=== PATIENT | male | born 1935 | race African-American/Black ===

== ENCOUNTER 2018-11-09 18:06 | Inpatient (IN) | payer MEDICARE, MEDICAID ==
[~2018-11-09] VITALS: Ht 172.7 cm; Wt 75.8 kg
[~2018-11-09 18:06] MED LIST: AMLODIPINE BESY10 MG ORAL; ASPIR 8181 MG ORAL; ATENOLOL50 MG ORAL; DOCUSATE SODIU100 MG ORAL; HYDROCHLOROTH12.5 M2 ORAL; LEVAQUIN250 M1 ORAL; MELOXICAM7.5 MG PO; PLAVIX75 MG ORAL; SIMVASTATIN10 MG ORAL; TAMSULOSIN HCL0.4 MG ORAL
--- NOTE | 2018-11-09 18:06 | NUR ---
ED Nurse Note: PT BROUGHT IN BY AMBULANCE DUE TO WEAKNESS FOR WEEKS. PT ALSO C/O LEFT FOREARM PAIN X 1 WEEK BUT DENIES INJURY. PT STATES HIS PRIMARY DOCTOR CALLED HIS NEPHEW TO LET THEM KNOW THAT SOMETHING IS WRONG WITH HIS LIVER. AAO X4, FOLLOWS COMMANDS WITH NON LABORED BREATHING. VSS.
[2018-11-09 18:09] VITALS: BP 158/70
--- NOTE | 2018-11-09 18:42 | NUR ---
ED Nurse Note: COLLECTED BLOOD/URINE THEN SENT.
[2018-11-09 18:51] LABS: APPEARANCE,URINE CLOUDY; BILIRUBIN, URINE NEGATIVE (NEGATIVE); COLOR,URINE PALE YELLOW; GLUCOSE, URINE (UA) NEGATIVE (NEGATIVE); KETONES,URINE NEGATIVE (NEGATIVE); LEUKOCYTE ESTERASE ,URINE 3+ (NEGATIVE); NITRITE,URINE POSITIVE (NEGATIVE); PH,URINE 5 (4.5-8.0); PROTEIN,URINE 3+ (NEGATIVE); UROBILINOGEN,URINE NORMAL MG/DL (0.0-1.0)
[2018-11-09 18:56] LABS: BASOPHILS % (AUTO) 0.6 % (0.0-2.0); EOSINOPHILS % (AUTO) 0.9 % (0.0-3.0); HEMATOCRIT 28.4 % (42.0-52.0); HEMOGLOBIN 9.6 G/DL (14.2-18.0); LYMPHOCYTES % (AUTO) 12.4 % (20.0-45.0); MEAN CORPUSCULAR VOLUME 85 FL (80-99); MONOCYTES % (AUTO) 6.2 % (1.0-10.0); PLATELET COUNT 396 K/UL (150-450); RED BLOOD COUNT 3.36 M/UL (4.70-6.10); WHITE BLOOD COUNT 9.3 K/UL (4.8-10.8)
[2018-11-09 19:00] VITALS: BP 153/79
--- NOTE | 2018-11-09 19:06 | NUR ---
HAND-OFF: Report given to ALKA DELANEY.
--- NOTE | 2018-11-09 19:11 | NUR ---
ED Nurse Note: Received report from Yeny DELANEY. Pt awake, AAOx4, c/o pain 10/10 on left arm and hand and asking for pain med. Will notify ER MD and continue to monitor.
[2018-11-09] MEDS ORDERED: cefTRIAXone 1 GM in NS 55 ML IVPB ONE (19:15)
[2018-11-09 19:16] LABS: ANION GAP 12 mmol/L (5-15); BLOOD UREA NITROGEN 38 mg/dL (7-18); CALCIUM 9.3 MG/DL (8.5-10.1); CARBON DIOXIDE 23 MMOL/L (21-32); CHLORIDE 105 MMOL/L (98-107); CREATININE 3.5 MG/DL (0.55-1.30); POTASSIUM 4.7 MMOL/L (3.5-5.1); SODIUM 140 MMOL/L (136-145)
[2018-11-09 19:21] LABS: ALANINE AMINOTRANSFERASE 23 U/L (12-78); ALBUMIN 2.9 G/DL (3.4-5.0); ALBUMIN/GLOBULIN RATIO 0.7 (1.0-2.7); ALKALINE PHOSPHATASE 99 U/L (46-116); ASPARTATE AMINO TRANSFERASE 14 U/L (15-37); BILIRUBIN,TOTAL 0.3 MG/DL (0.2-1.0); CKMB 1.3 NG/ML (0.0-3.6); CREATINE KINASE 53 U/L (26-308)
--- NOTE | 2018-11-09 19:51 | Emergency Room Report ---
History of Present Illness General Chief Complaint: Generalized Weakness Source: Patient, EMS Present Illness HPI Patient is an 83-year-old male brought in by EMS after increased generalized weakness. Patient had reportedly been called by his physician advised to come to the hospital. Patient states he is followed by Dr. Prince Parmar. History is markedly limited by patient's mental status and poor historian. Patient had been having increased back pain. He had been previously seen at this facility. Allergies: Coded Allergies: No Known Allergies (Unverified , 08/05/14) Patient History Past Medical History: see triage record Reviewed Nursing Documentation: PMH: Agreed; PSxH: Agreed Nursing Documentation-PMH Hx Hypertension: Yes Hx Cancer: No Hx Gastrointestinal Problems: No Hx Neurological Problems: Yes - POLIO Review of Systems All Other Systems: limited - by poor historian Physical Exam Vital Signs Date Time Temp Pulse Resp B/P (MAP) Pulse Ox O2 Delivery O2 Flow Rate FiO2 11/09/18 17:45 99.0 72 18 175/81 (112) 97 Room Air General Appearance: alert, Chronically Ill Eyes: bilateral eye PERRL, bilateral eye EOMI ENT: hearing grossly normal Neck: full range of motion Respiratory: lungs clear, normal breath sounds Cardiovascular #1: normal inspection Gastrointestinal: normal inspection, non tender, non-distended Musculoskeletal: normal inspection Neurologic: alert, oriented x3, responsive, ladler III-XII nml as tested Psychiatric: normal inspection Skin: normal inspection, normal color Medical Decision Making Diagnostic Impression: Primary Impression: JESENIA (acute kidney injury) Additional Impressions: Anemia Urinary tract infection Qualified Codes: N10 - Acute pyelonephritis Prostate hypertrophy ER Course Patient presented for increased generalized weakness and confusion. Differential diagnosis included but was not limited to pyelonephritis, hepatic encephalopathy, cva, dehydration, uremia, among others. Patient was noted to be awake and verbal with some confabulation. Patient appears somewhat confused. He doesn't appear to have a focal neurological deficiti. He was started on IV fluids and IV antibiotics for urinary infection. Patients BUN and creatinine were noted to be elevated compared with [facility] He was noted to have some prior history of prostate disease. Patient was discussed with Dr. Edgar Milton who is covering for Dr. Young. Labs Test 11/09/18 18:35 11/09/18 22:50 White Blood Count 9.3 K/UL (4.8-10.8) Red Blood Count 3.36 M/UL (4.70-6.10) Hemoglobin 9.6 G/DL (14.2-18.0) Hematocrit 28.4 % (42.0-52.0) Mean Corpuscular Volume 85 FL (80-99) Mean Corpuscular Hemoglobin 28.6 PG (27.0-31.0) Mean Corpuscular Hemoglobin Concent 33.8 G/DL (32.0-36.0) Red Cell Distribution Width 12.0 % (11.6-14.8) Platelet Count 396 K/UL (150-450) Mean Platelet Volume 5.3 FL (6.5-10.1) Neutrophils (%) (Auto) 80.0 % (45.0-75.0) Lymphocytes (%) (Auto) 12.4 % (20.0-45.0) Monocytes (%) (Auto) 6.2 % (1.0-10.0) Eosinophils (%) (Auto) 0.9 % (0.0-3.0) Basophils (%) (Auto) 0.6 % (0.0-2.0) Urine Color Pale yellow Urine Appearance Cloudy Urine pH 5 (4.5-8.0) Urine Specific [place] 1.015 (1.005-1.035) Urine Protein 3+ (NEGATIVE) Urine Glucose (UA) Negative (NEGATIVE) Urine Ketones Negative (NEGATIVE) Urine Blood 4+ (NEGATIVE) Urine Nitrite Positive (NEGATIVE) Urine Bilirubin Negative (NEGATIVE) Urine Urobilinogen Normal MG/DL (0.0-1.0) Urine Leukocyte Esterase 3+ (NEGATIVE) Urine RBC 2-4 /HPF (0 - 0) Urine WBC Tntc /HPF (0 - 0) Urine Squamous Epithelial Cells None /LPF (NONE/OCC) Urine Bacteria Moderate /HPF (NONE) Sodium Level 140 MMOL/L (136-145) Potassium Level 4.7 MMOL/L (3.5-5.1) Chloride Level 105 MMOL/L (98-107) Carbon Dioxide Level 23 MMOL/L (21-32) Anion Gap 12 mmol/L (5-15) Blood Urea Nitrogen 38 mg/dL (7-18) Creatinine 3.5 MG/DL (0.55-1.30) Estimat Glomerular Filtration Rate mL/min (>60) Glucose Level 104 MG/DL (74-106) Lactic Acid Level 0.70 mmol/L (0.4-2.0) Calcium Level 9.3 MG/DL (8.5-10.1) Total Bilirubin 0.3 MG/DL (0.2-1.0) Aspartate Amino Transf (AST/SGOT) 14 U/L (15-37) Alanine Aminotransferase (ALT/SGPT) 23 U/L (12-78) Alkaline Phosphatase 99 U/L (46-116) Total Creatine Kinase 53 U/L (26-308) Creatine Kinase MB 1.3 NG/ML (0.0-3.6) Creatine Kinase MB Relative Index 2.4 Troponin I 0.000 ng/mL (0.000-0.056) Total Protein 7.2 G/DL (6.4-8.2) Albumin 2.9 G/DL (3.4-5.0) Globulin 4.3 g/dL Albumin/Globulin Ratio 0.7 (1.0-2.7) Ammonia 23 umol/L (11-32) Thyroid Stimulating Hormone (TSH) 0.619 uiU/mL (0.358-3.740) Serum Alcohol < 3 mg/dL Last Vital Signs Date Time Temp Pulse Resp B/P (MAP) Pulse Ox O2 Delivery O2 Flow Rate FiO2 11/09/18 18:09 99.0 68 15 158/70 98 Room Air Status: improved Disposition: ADMITTED INPATIENT Condition: Stable Sammy Parmar MD Nov 09, 2018 19:51
[2018-11-09 20:00] VITALS: BP 152/76
[2018-11-09] MEDS ORDERED: Thiamine HCl 100 MG in D5W 55 ML IVPB SCH (20:15)
--- NOTE | 2018-11-09 20:45 | NUR ---
ED Nurse Note: Pt ready for admission. Awaiting room assignment for tele unit. Will continue to monitor.
[2018-11-09 21:00] VITALS: BP 138/78
--- NOTE | 2018-11-09 22:15 | NUR ---
TRANSFER TO FLOOR: Patient transferred to [facility] as ordered, per MD Young. Report given to Sravanthi Alcocer RN. Belongings and medications given to Sravanthi Alcocer RN. Pt stable.
--- NOTE | 2018-11-09 22:30 | NUR ---
NURSE NOTES: Received pt from ELAINA Grant. Pt awake, alert, and talkative. Bed in lowest position. Lung sounds clear. VSS. Open surgical wound covered with gauze/Tegaderm noted on right leg. Call light within reach. Pt c/o pain on upper/lower extremities. Orders put into system. Pt explains that he does not know his home meds and nobody is available to obtain them but he knows he takes about 10 daily. Will notify MD and Will continue to monitor.
--- NOTE | 2018-11-09 23:57 | NUR ---
NURSE NOTES: Called and left a message with Dr. Rudd and Dr. Young regarding pts request for stronger pain meds. Awaiting call back.
--- NOTE | 2018-11-09 23:58 | NUR ---
NURSE NOTES: Dr. Yanez called back with orders for morphine 1 mg Q4Hrs PRN. Will input order and will continue to monitor.
[2018-11-10] VITALS: BP 155/81
[2018-11-10] MEDS: Morphine Sulfate 2mg/ml Inj(IV/IM USE ONLY) IVP PRN ×2 (00:29→22:04)
[2018-11-10 04:00] VITALS: BP 131/70
[2018-11-10 06:37] LABS: BASOPHILS % (AUTO) 0.6 % (0.0-2.0); EOSINOPHILS % (AUTO) 1.1 % (0.0-3.0); HEMATOCRIT 25.5 % (42.0-52.0); HEMOGLOBIN 8.5 G/DL (14.2-18.0); MEAN CORPUSCULAR VOLUME 87 FL (80-99); MONOCYTES % (AUTO) 7.6 % (1.0-10.0); NEUTROPHILS % (AUTO) 72.7 % (45.0-75.0); PLATELET COUNT 324 K/UL (150-450); RED BLOOD COUNT 2.93 M/UL (4.70-6.10); RED CELL DISTRIBUTION WIDTH 12.8 % (11.6-14.8); WHITE BLOOD COUNT 6.4 K/UL (4.8-10.8)
[2018-11-10 07:06] LABS: ANION GAP 12 mmol/L (5-15); BLOOD UREA NITROGEN 36 mg/dL (7-18); CALCIUM 8.6 MG/DL (8.5-10.1); CARBON DIOXIDE 20 MMOL/L (21-32); CHLORIDE 109 MMOL/L (98-107); CREATININE 3.2 MG/DL (0.55-1.30); POTASSIUM 4.1 MMOL/L (3.5-5.1); SODIUM 141 MMOL/L (136-145)
--- NOTE | 2018-11-10 07:41 | NUR ---
HAND-OFF: Report given to ELAINA Pascual. Pt stable.
--- NOTE | 2018-11-10 07:43 | NUR ---
NURSE NOTES: Report received from ELAINA Fishman. Pt is sitting on bed and eating his breakfast. Breathing is even and unlabored in room air. No acute distress noted at this time. Checked the wound on left leg and will report to Dr. Pan. Bed in lowest position with brake engaged and side rails up x2. Call light and side table placed within reach. Bed alarm on. Will continue to monitor.
[2018-11-10 08:00] VITALS: BP 129/70
--- NOTE | 2018-11-10 08:00 | History and Physical Report ---
DATE OF ADMISSION: 11/09/2018 REASON FOR ADMISSION: 1. Acute kidney injury. 2. Urinary tract infection. 3. Confusion/acute encephalopathy. HISTORY OF PRESENT ILLNESS: The patient is an 83-year-old gentleman, brought in by EMS after complaining of progressive weakness, not feeling well and being confused. The patient denies any nausea, vomiting, or diarrhea. He was confused in the emergency room and noted to have urinary tract infection. IV antibiotics were initiated. The patient has steadily improved. His mentation has also improved as well. He denies any nausea, vomiting, diarrhea, or chest pain. No shortness of breath. PAST MEDICAL HISTORY: 1. Hypertension. 2. BPH. 3. Constipation. PAST SURGICAL HISTORY: Noncontributory. ALLERGIES: No known drug allergies. FAMILY HISTORY: Positive for hypertension and diabetes. REVIEW OF SYSTEMS: NEUROLOGIC: The patient denies headache, change in vision, syncope, or presyncopal episodes, but was feeling confused. CARDIOVASCULAR: No current chest pain, palpitations, or angina. PULMONARY: No difficulty breathing, productive cough, or sputum. GASTROINTESTINAL/GENITOURINARY: Mild changes in urinary frequency. No nausea, vomiting, or diarrhea. ENDOCRINOLOGY: No night sweats, fever, or chills. MUSCULOSKELETAL: The patient feels weak, tired, and fatigued. PHYSICAL EXAMINATION: VITAL SIGNS: Blood pressure 131/70, respiratory rate 22, pulse 61, temperature 98.9, and 98% oxygen saturation on room air. GENERAL: The patient is awake, alert, and in no distress. HEENT: Extraocular muscles intact. No lymphadenopathy noted. Oropharyngeal mucosa clear and dry. CARDIOVASCULAR: S1, S2. No rubs or gallops. PULMONARY: Clear to auscultation bilaterally. No rales, rhonchi, or wheezes. ABDOMINAL: Nondistended and nontender. EXTREMITY: No edema noted. LABORATORY DATA: Laboratories dated 11/09/2018, positive for urinary tract infection. Sodium 140, potassium 4.7, BUN 38, creatinine 3.5, and calcium 9.3. White cell count 9.3, hemoglobin 9.6, and platelet count 396,000. ASSESSMENT AND PLAN: 1. Acute encephalopathy secondary to dehydration, urinary tract infection. We will continue IV antibiotics and hydration. The patient's mentation is vastly improved. 2. Urinary tract infection. We will continue Rocephin IV along with IV fluids. 3. Hypertension. Blood pressure stable. Continue Norvasc. 4. DVT prophylaxis with Lovenox. 5. Disposition. We will order PT evaluation. Anticipate discharge within 24 to 48 hours. Edgar Milton MD DR: NICOLAS JOB#: [id number] CC:
[2018-11-10] MEDS: Heparin 5000 units/ml inj SUBQ SCH ×2 (09:00→21:00)
[2018-11-10] MEDS: Docusate 100mg cap ORAL SCH ×2 (09:02→21:00)
--- NOTE | 2018-11-10 11:15 | Diagnostic Imaging Report ---
Indication: Altered mental status Technique: spiral acquisitions obtained through the brain. Angled axial and coronal 5 x 5 mm slices were reconstructed. No IV contrast utilized. Radiation dose was minimized using automated exposure control Total dose length product 1351.45 mGycm. CTDIvol(s) 70.38 mGy Comparison: 11/01/2015 FINDINGS: No acute hemorrhage or edema. No mass effect or midline shift. There is age-related enlargement of the ventricles and extra axial CSF spaces. Prominence of the ventricles is slightly out of proportion to the degree of prominence of the extra-axial CSF spaces, but this is similar to the previous study. There is periventricular deep white matter ischemic change. Normal cheng-white differentiation. Visualized orbits are unremarkable. Visualized sinuses are unremarkable. Intact calvarium. IMPRESSION: Chronic and age-related changes. Negative for acute intracranial bleed or mass effect This agrees with the preliminary interpretation provided overnight by [facility] teleradiology service. The CT scanner at [facility] is accredited by the [employer] and the scans are performed using protocols designed to limit radiation exposure to as low as reasonably achievable to attain images of sufficient resolution adequate for diagnostic evaluation
[2018-11-10 12:00] VITALS: BP 135/72
--- NOTE | 2018-11-10 12:57 | NUR ---
NURSE NOTES:WOUND CARE NOTES:PT presented on admission with wound to deni L tibia. Pt stated he has had wound for almost one year but is not aware of how he developed wound . Full thickness wound that is malodorous .Base of wound is necrotic. Small amt brown exudate noted.Darker skin tone without elevation in skin temp,fluctuance or induration noted. Dry flaky skin noted to LLE. L foot warm to touch.Pt denied fever, or pain at site of wound. LLE washed with soap and water and moisturized. Wound cleansed with Saline. Therahoney gel applied and covered with Optifoam drsg. Recommendations: Please request Surgical eval to assess wound.
--- NOTE | 2018-11-10 12:59 | Diagnostic Imaging Report ---
Indication: Shortness of breath Technique: One view of the chest Comparison: 11/01/2015 Findings: No acute infiltrates, effusions, or congestion. Tortuous calcified aorta. Normal heart size. Upper mediastinum unremarkable. No significant change Impression: No acute process.
--- NOTE | 2018-11-10 14:18 | NUR ---
P.T NOTE: P.T EVALUATION COMPLETED. PATIENT IS ALERT, O X 4, PLEASANT AND COOPERATIVE. PATIENT DENIED C/O DIZZINESS NOR NAUSEA EXCEPT SEVERE PAIN AND TENDERNESS OF THE L WRIST/HAND AND FINGER AGGRAVATED BY TOUCH PRESSURE, MOVEMENT AND CERTAIN POSITIONING 5-03/04. ELAINA PRICE NOTIFIED RE: ISSUE OF THE L WRIST. RECOMMEND X-RAY TO R/O WRIST FX. PATIENT OVERALL IS CURRENT BASELINE INDEPENDENT WITH ADL/FUNCTIONAL MOBILITIES GAIT LOCOMOTION. SKILLED P.T SERVICE IS NOT WARRANTED AT THIS TIME. EDUCATED PATIENT ON SAFETY WITH MOBILITY AND ENCOURAGE HIM FOR OOB ACTIVITIES VS BED REST DURING STAY UNLESS OTHERWISE ORDERED. D/C P.T SERVICES.
--- NOTE | 2018-11-10 15:42 | Consultation ---
History of Present Illness General Date patient seen: Nov 10, 2018 Reason for Hospitalization: Generalized Weakness Present Illness HPI 83 year old male with multiple medical comorbidities presented to ED with complaints of feeling weak, tired, and unwell. noted to have UTI and abnormal labs. Admitted for care and management. Surgery called to evaluate and assist with care given patient having multiple wounds. patient seen, chart reviewed, patient examined. states had injury to bilateral legs years ago but was during work and multiple injuries at the time. some healed and some did not as per patient. has been dealing with dry skin on left leg and open wound on right. covers it when out. no complaints otherwise. Allergies: Coded Allergies: No Known Allergies (Unverified , 08/05/14) Medication History Scheduled Amlodipine Besylate* (Amlodipine Besylate*), 10 MG ORAL DAILY, (Reported) Docusate Sodium* (Docusate Sodium*), 100 MG ORAL BID, (Reported) Tamsulosin Hcl (Tamsulosin Hcl*), 0.4 MG ORAL BEDTIME Patient History Limited by: medical condition History Provided By: Patient, Medical Record, PMD Healthcare decision maker sister Merlin lewis Resuscitation status Full Code Advanced Directive on File Past Medical/Surgical History Past Medical/Surgical History: (1) Syncope (2) GI bleed (3) Encounter for medication refill (4) Encounter for medication refill (5) Urinary tract infection (6) Anemia (7) Prostate hypertrophy (8) Episode of generalized weakness (9) JESENIA (acute kidney injury) (10) BPH (benign prostatic hyperplasia) (11) Hypertension (12) PAD (peripheral artery disease) (13) HLD (hyperlipidemia) Review of Systems Review of Symptoms General ROS: no weight loss or fever Psychological ROS: no depression or mood changes, no memory loss Ophthalmic ROS: no visual changes or eye irritation ENT ROS: no nasal congestion, hearing loss, dizziness Allergy and Immunology ROS: no allergic symptoms or urticaria Hematological and Lymphatic ROS: no swollen glands, unusual bleeding or bruising Endocrine ROS: no polyuria, polydipsia, weight changes, temperature intolerance Respiratory ROS: no cough, shortness of breath, or wheezing Cardiovascular ROS: no chest pain or dyspnea on exertion Gastrointestinal ROS: denies abdominal pain, no bright red blood in stool. Musculoskeletal ROS: no myalgias or arthralgias Neurological ROS: no TIA or stroke symptoms Dermatological ROS: no new or changing skin lesions, rashes or pruritis Physical Exam Physical Exam General appearance: alert, cooperative, no distress, appears stated age Head: Normocephalic, without obvious abnormality, atraumatic Eyes: conjunctivae/corneas clear. PERRL, EOM's intact. Fundi benign Throat: Lips, mucosa, and tongue normal. Teeth and gums normal Neck: supple, symmetrical, trachea midline, no adenopathy, thyroid: not enlarged, symmetric, no tenderness/mass/nodules, no carotid bruit and no JVD Lungs: clear to auscultation bilaterally Heart: regular rate and rhythm, S1, S2 normal, no murmur, click, rub or gallop Abdomen: soft, non-tender. Bowel sounds normal. No masses, no organomegaly Extremities: extremities normal, atraumatic, no cyanosis or edema Pulses: 2+ and symmetric Skin: Skin color, texture, turgor normal. No rashes or lesions Neurologic: Grossly normal Last 24 Hour Vital Signs Date Time Temp Pulse Resp B/P (MAP) Pulse Ox O2 Delivery O2 Flow Rate FiO2 11/10/18 12:00 72 11/10/18 12:00 97.8 70 20 135/72 (93) 100 11/10/18 09:04 68 129/70 11/10/18 09:00 Room Air 11/10/18 08:00 97.3 68 20 129/70 (89) 98 11/10/18 08:00 67 11/10/18 04:00 61 11/10/18 04:00 98.9 69 22 131/70 (90) 98 11/10/18 00:00 98.8 74 20 155/81 (105) 99 11/10/18 00:00 71 11/09/18 23:26 Room Air 11/09/18 22:04 98.4 65 19 143/84 100 Room Air 11/09/18 21:00 98.4 67 18 138/78 98 Room Air 11/09/18 20:00 98.4 69 18 152/76 100 Room Air 11/09/18 19:00 98.4 72 18 153/79 100 Room Air 11/09/18 18:09 99.0 68 15 158/70 98 Room Air 11/09/18 17:55 72 18 Room Air 11/09/18 17:45 99.0 72 18 175/81 (112) 97 Room Air Intake and Output 11/09/18 11/10/18 19:00 07:00 # Voids 1 # Bowel Movements 1 Laboratory Tests Test 11/09/18 18:35 11/09/18 22:50 11/10/18 06:15 White Blood Count 9.3 K/UL (4.8-10.8) 6.4 K/UL (4.8-10.8) Red Blood Count 3.36 M/UL (4.70-6.10) L 2.93 M/UL (4.70-6.10) L Hemoglobin 9.6 G/DL (14.2-18.0) L 8.5 G/DL (14.2-18.0) L Hematocrit 28.4 % (42.0-52.0) L 25.5 % (42.0-52.0) L Mean Corpuscular Volume 85 FL (80-99) 87 FL (80-99) Mean Corpuscular Hemoglobin 28.6 PG (27.0-31.0) 29.1 PG (27.0-31.0) Mean Corpuscular Hemoglobin Concent 33.8 G/DL (32.0-36.0) 33.4 G/DL (32.0-36.0) Red Cell Distribution Width 12.0 % (11.6-14.8) 12.8 % (11.6-14.8) Platelet Count 396 K/UL (150-450) 324 K/UL (150-450) Mean Platelet Volume 5.3 FL (6.5-10.1) L 5.8 FL (6.5-10.1) L Neutrophils (%) (Auto) 80.0 % (45.0-75.0) H 72.7 % (45.0-75.0) Lymphocytes (%) (Auto) 12.4 % (20.0-45.0) L 18.0 % (20.0-45.0) L Monocytes (%) (Auto) 6.2 % (1.0-10.0) 7.6 % (1.0-10.0) Eosinophils (%) (Auto) 0.9 % (0.0-3.0) 1.1 % (0.0-3.0) Basophils (%) (Auto) 0.6 % (0.0-2.0) 0.6 % (0.0-2.0) Urine Color Pale yellow Urine Appearance Cloudy Urine pH 5 (4.5-8.0) Urine Specific [place] 1.015 (1.005-1.035) Urine Protein 3+ (NEGATIVE) H Urine Glucose (UA) Negative (NEGATIVE) Urine Ketones Negative (NEGATIVE) Urine Blood 4+ (NEGATIVE) H Urine Nitrite Positive (NEGATIVE) H Urine Bilirubin Negative (NEGATIVE) Urine Urobilinogen Normal MG/DL (0.0-1.0) Urine Leukocyte Esterase 3+ (NEGATIVE) H Urine RBC 2-4 /HPF (0 - 0) H Urine WBC Tntc /HPF (0 - 0) H Urine Squamous Epithelial Cells None /LPF (NONE/OCC) Urine Bacteria Moderate /HPF (NONE) H Sodium Level 140 MMOL/L (136-145) 141 MMOL/L (136-145) Potassium Level 4.7 MMOL/L (3.5-5.1) 4.1 MMOL/L (3.5-5.1) Chloride Level 105 MMOL/L (98-107) 109 MMOL/L (98-107) H Carbon Dioxide Level 23 MMOL/L (21-32) 20 MMOL/L (21-32) L Anion Gap 12 mmol/L (5-15) 12 mmol/L (5-15) Blood Urea Nitrogen 38 mg/dL (7-18) H 36 mg/dL (7-18) H Creatinine 3.5 MG/DL (0.55-1.30) H 3.2 MG/DL (0.55-1.30) H Estimat Glomerular Filtration Rate mL/min (>60) mL/min (>60) Glucose Level 104 MG/DL (74-106) 99 MG/DL (74-106) Lactic Acid Level 0.70 mmol/L (0.4-2.0) Calcium Level 9.3 MG/DL (8.5-10.1) 8.6 MG/DL (8.5-10.1) Total Bilirubin 0.3 MG/DL (0.2-1.0) Aspartate Amino Transf (AST/SGOT) 14 U/L (15-37) L Alanine Aminotransferase (ALT/SGPT) 23 U/L (12-78) Alkaline Phosphatase 99 U/L (46-116) Total Creatine Kinase 53 U/L (26-308) Creatine Kinase MB 1.3 NG/ML (0.0-3.6) Creatine Kinase MB Relative Index 2.4 Troponin I 0.000 ng/mL (0.000-0.056) Total Protein 7.2 G/DL (6.4-8.2) Albumin 2.9 G/DL (3.4-5.0) L Globulin 4.3 g/dL Albumin/Globulin Ratio 0.7 (1.0-2.7) L Ammonia 23 umol/L (11-32) Thyroid Stimulating Hormone (TSH) 0.619 uiU/mL (0.358-3.740) Serum Alcohol < 3 mg/dL Microbiology Date/Time Source Procedure Growth Status 11/09/18 18:35 Urine,Clean Catch Urine Culture - Preliminary Gram Negative Bacillus 1 Resulted Height (Feet): 5 Height (Inches): 8.00 Weight (Pounds): 165 Medications Current Medications Medications (Trade) Dose Ordered Sig/Yesenia Route PRN Reason Start Time Stop Time Status Last Admin Dose Admin Acetaminophen (Tylenol) 650 mg Q4H PRN ORAL Mild Pain (Pain Scale 1-3) 11/09/18 21:30 12/09/18 21:29 11/10/18 09:03 Amlodipine Besylate (Norvasc) 10 mg DAILY ORAL 11/10/18 09:00 12/10/18 08:59 11/10/18 09:04 Ceftriaxone Sodium 1 gm/ Dextrose 55 ml @ 110 mls/hr Q24H IVPB 11/10/18 19:00 11/17/18 18:59 Dextrose (Dextrose 50%) 25 ml Q30M PRN IV Hypoglycemia 11/09/18 21:30 12/09/18 21:29 Dextrose (Dextrose 50%) 50 ml Q30M PRN IV Hypoglycemia 11/09/18 21:30 12/09/18 21:29 Docusate Sodium (Colace) 100 mg EVERY 12 HOURS ORAL 11/10/18 09:00 12/10/18 08:59 11/10/18 09:02 Famotidine (Pepcid) 40 mg DAILY ORAL 11/10/18 09:00 12/10/18 08:59 11/10/18 09:03 Heparin Sodium (Porcine) (Heparin 5000 units/ml) 5,000 units EVERY 12 HOURS SUBQ 11/10/18 09:00 12/10/18 08:59 Morphine Sulfate (Morphine Sulfate) 1 mg Q4H PRN IVP For Pain 11/10/18 00:15 11/17/18 00:14 11/10/18 00:29 Ondansetron HCl (Zofran) 4 mg Q6H PRN IVP Nausea & Vomiting 11/09/18 21:30 12/09/18 21:29 Sodium Chloride 1,000 ml @ 75 mls/hr [id number] IV 11/09/18 21:30 12/09/18 21:29 11/10/18 11:38 Tamsulosin HCl (Flomax) 0.4 mg BEDTIME ORAL 11/10/18 21:00 12/10/18 20:59 Assessment/Plan Problem List: (1) Urinary tract infection ICD Codes: N39.0 - Urinary tract infection, site not specified SNOMED: 12999475 Qualifiers: Qualified Codes: N10 - Acute pyelonephritis (2) Anemia ICD Codes: D64.9 - Anemia, unspecified SNOMED: 049483433 (3) Prostate hypertrophy ICD Codes: N40.0 - Benign prostatic hyperplasia without lower urinary tract symptoms SNOMED: 130191254 (4) Syncope ICD Codes: R55 - Syncope and collapse SNOMED: 524158046 (5) GI bleed ICD Codes: K92.2 - Gastrointestinal hemorrhage, unspecified SNOMED: 27195282 (6) Episode of generalized weakness ICD Codes: R53.1 - Weakness SNOMED: 55209513 (7) Encounter for medication refill ICD Codes: Z76.0 - Encounter for medication refill SNOMED: 062487150 (8) Encounter for medication refill ICD Codes: Z76.0 - Encounter for issue of repeat prescription SNOMED: 081332147 (9) JESENIA (acute kidney injury) ICD Codes: N17.9 - Acute kidney failure, unspecified SNOMED: 47128086 (10) Hypertension ICD Codes: I10 - Hypertension SNOMED: 77358027 (11) BPH (benign prostatic hyperplasia) ICD Codes: N40.0 - Enlarged prostate without lower urinary tract symptoms SNOMED: 140905699, 223830904 (12) PAD (peripheral artery disease) ICD Codes: I73.9 - Peripheral vascular disease, unspecified SNOMED: 737968377 (13) HLD (hyperlipidemia) ICD Codes: E78.5 - Hyperlipidemia, unspecified SNOMED: 84990999, 310272066 (14) Open wound Assessment & Plan: Patient presented on admission with a wound to his anterior Left tibia. He stated he has had wound for almost years but is not aware of how he developed wound. use to have injury to both legs for year from work but most healed. left mid shaft tibial stage 4 Full thickness wound that is malodorous .Base of wound is necrotic down to bone which has dry necrotic layer. Small amt brown exudate noted which is mainly sebum. Darker skin tone without elevation in skin temp,fluctuance or induration noted. Dry flaky skin noted to LLE. states wound use to be much large and has contracted to this small necrotic wound now. approximately 4cm x 3cm x 1cm down to bone. chronic dry. L foot warm to touch. Pt denied fever, or pain at site of wound. LLE washed with soap and water and moisturized. Tx Plan: Left lower extremity wound, clean with Saline. Therahoney gel applied and covered with Optifoam drsg. discussed wound care plans with patient. explained to him that given how chronic wound is it will likely not heal much further and stay as open chronic wound. I offered consideration for debridement and possible flap but patient not interested at this time. states wound does not bother him and he will be okay with it the way it is. will follow with recs thank you ICD Codes: T14.8XXA - Other injury of unspecified body region, initial encounter SNOMED: 616966096 Dirk Torrez Nov 10, 2018 15:42
[2018-11-10 16:00] VITALS: BP 123/58
--- NOTE | 2018-11-10 16:03 | Cardiology Report ---
APPROVED REPORT EKG Measurement Heart [id number] Normal sinus rhythm Normal ECG
--- NOTE | 2018-11-10 16:04 | Infectious Diseases Prog Note ---
Assessment/Plan Assessment/Plan Full consult dictated: A) 1) gram neg uti, complicated uti 2) pmh noted 3) nkda P) 1) ceftriaxone 2) f/u on urine culture 3) thank you Subjective Allergies: Coded Allergies: No Known Allergies (Unverified , 08/05/14) Objective Vital Signs Last 24 Hour Vital Signs Date Time Temp Pulse Resp B/P (MAP) Pulse Ox O2 Delivery O2 Flow Rate FiO2 11/10/18 12:00 72 11/10/18 12:00 97.8 70 20 135/72 (93) 100 11/10/18 09:04 68 129/70 11/10/18 09:00 Room Air 11/10/18 08:00 97.3 68 20 129/70 (89) 98 11/10/18 08:00 67 11/10/18 04:00 61 11/10/18 04:00 98.9 69 22 131/70 (90) 98 11/10/18 00:00 98.8 74 20 155/81 (105) 99 11/10/18 00:00 71 11/09/18 23:26 Room Air 11/09/18 22:04 98.4 65 19 143/84 100 Room Air 11/09/18 21:00 98.4 67 18 138/78 98 Room Air 11/09/18 20:00 98.4 69 18 152/76 100 Room Air 11/09/18 19:00 98.4 72 18 153/79 100 Room Air 11/09/18 18:09 99.0 68 15 158/70 98 Room Air 11/09/18 17:55 72 18 Room Air 11/09/18 17:45 99.0 72 18 175/81 (112) 97 Room Air Height (Feet): 5 Height (Inches): 8.00 Weight (Pounds): 165 Microbiology Date/Time Source Procedure Growth Status 11/09/18 18:35 Urine,Clean Catch Urine Culture - Preliminary Gram Negative Bacillus 1 Resulted Laboratory Tests Test 11/09/18 18:35 11/09/18 22:50 11/10/18 06:15 White Blood Count 9.3 K/UL (4.8-10.8) 6.4 K/UL (4.8-10.8) Red Blood Count 3.36 M/UL (4.70-6.10) L 2.93 M/UL (4.70-6.10) L Hemoglobin 9.6 G/DL (14.2-18.0) L 8.5 G/DL (14.2-18.0) L Hematocrit 28.4 % (42.0-52.0) L 25.5 % (42.0-52.0) L Mean Corpuscular Volume 85 FL (80-99) 87 FL (80-99) Mean Corpuscular Hemoglobin 28.6 PG (27.0-31.0) 29.1 PG (27.0-31.0) Mean Corpuscular Hemoglobin Concent 33.8 G/DL (32.0-36.0) 33.4 G/DL (32.0-36.0) Red Cell Distribution Width 12.0 % (11.6-14.8) 12.8 % (11.6-14.8) Platelet Count 396 K/UL (150-450) 324 K/UL (150-450) Mean Platelet Volume 5.3 FL (6.5-10.1) L 5.8 FL (6.5-10.1) L Neutrophils (%) (Auto) 80.0 % (45.0-75.0) H 72.7 % (45.0-75.0) Lymphocytes (%) (Auto) 12.4 % (20.0-45.0) L 18.0 % (20.0-45.0) L Monocytes (%) (Auto) 6.2 % (1.0-10.0) 7.6 % (1.0-10.0) Eosinophils (%) (Auto) 0.9 % (0.0-3.0) 1.1 % (0.0-3.0) Basophils (%) (Auto) 0.6 % (0.0-2.0) 0.6 % (0.0-2.0) Urine Color Pale yellow Urine Appearance Cloudy Urine pH 5 (4.5-8.0) Urine Specific [place] 1.015 (1.005-1.035) Urine Protein 3+ (NEGATIVE) H Urine Glucose (UA) Negative (NEGATIVE) Urine Ketones Negative (NEGATIVE) Urine Blood 4+ (NEGATIVE) H Urine Nitrite Positive (NEGATIVE) H Urine Bilirubin Negative (NEGATIVE) Urine Urobilinogen Normal MG/DL (0.0-1.0) Urine Leukocyte Esterase 3+ (NEGATIVE) H Urine RBC 2-4 /HPF (0 - 0) H Urine WBC Tntc /HPF (0 - 0) H Urine Squamous Epithelial Cells None /LPF (NONE/OCC) Urine Bacteria Moderate /HPF (NONE) H Sodium Level 140 MMOL/L (136-145) 141 MMOL/L (136-145) Potassium Level 4.7 MMOL/L (3.5-5.1) 4.1 MMOL/L (3.5-5.1) Chloride Level 105 MMOL/L (98-107) 109 MMOL/L (98-107) H Carbon Dioxide Level 23 MMOL/L (21-32) 20 MMOL/L (21-32) L Anion Gap 12 mmol/L (5-15) 12 mmol/L (5-15) Blood Urea Nitrogen 38 mg/dL (7-18) H 36 mg/dL (7-18) H Creatinine 3.5 MG/DL (0.55-1.30) H 3.2 MG/DL (0.55-1.30) H Estimat Glomerular Filtration Rate mL/min (>60) mL/min (>60) Glucose Level 104 MG/DL (74-106) 99 MG/DL (74-106) Lactic Acid Level 0.70 mmol/L (0.4-2.0) Calcium Level 9.3 MG/DL (8.5-10.1) 8.6 MG/DL (8.5-10.1) Total Bilirubin 0.3 MG/DL (0.2-1.0) Aspartate Amino Transf (AST/SGOT) 14 U/L (15-37) L Alanine Aminotransferase (ALT/SGPT) 23 U/L (12-78) Alkaline Phosphatase 99 U/L (46-116) Total Creatine Kinase 53 U/L (26-308) Creatine Kinase MB 1.3 NG/ML (0.0-3.6) Creatine Kinase MB Relative Index 2.4 Troponin I 0.000 ng/mL (0.000-0.056) Total Protein 7.2 G/DL (6.4-8.2) Albumin 2.9 G/DL (3.4-5.0) L Globulin 4.3 g/dL Albumin/Globulin Ratio 0.7 (1.0-2.7) L Ammonia 23 umol/L (11-32) Thyroid Stimulating Hormone (TSH) 0.619 uiU/mL (0.358-3.740) Serum Alcohol < 3 mg/dL Current Medications Medications (Trade) Dose Ordered Sig/Yesenia Route PRN Reason Start Time Stop Time Status Last Admin Dose Admin Acetaminophen (Tylenol) 650 mg Q4H PRN ORAL Mild Pain (Pain Scale 1-3) 11/09/18 21:30 12/09/18 21:29 11/10/18 09:03 Amlodipine Besylate (Norvasc) 10 mg DAILY ORAL 11/10/18 09:00 12/10/18 08:59 11/10/18 09:04 Ceftriaxone Sodium 1 gm/ Dextrose 55 ml @ 110 mls/hr Q24H IVPB 11/10/18 19:00 11/17/18 18:59 Dextrose (Dextrose 50%) 25 ml Q30M PRN IV Hypoglycemia 11/09/18 21:30 12/09/18 21:29 Dextrose (Dextrose 50%) 50 ml Q30M PRN IV Hypoglycemia 11/09/18 21:30 12/09/18 21:29 Docusate Sodium (Colace) 100 mg EVERY 12 HOURS ORAL 11/10/18 09:00 12/10/18 08:59 11/10/18 09:02 Famotidine (Pepcid) 40 mg DAILY ORAL 11/10/18 09:00 12/10/18 08:59 11/10/18 09:03 Heparin Sodium (Porcine) (Heparin 5000 units/ml) 5,000 units EVERY 12 HOURS SUBQ 11/10/18 09:00 12/10/18 08:59 Morphine Sulfate (Morphine Sulfate) 1 mg Q4H PRN IVP For Pain 11/10/18 00:15 11/17/18 00:14 11/10/18 00:29 Ondansetron HCl (Zofran) 4 mg Q6H PRN IVP Nausea & Vomiting 11/09/18 21:30 12/09/18 21:29 Sodium Chloride 1,000 ml @ 75 mls/hr [id number] IV 11/09/18 21:30 12/09/18 21:29 11/10/18 11:38 Tamsulosin HCl (Flomax) 0.4 mg BEDTIME ORAL 11/10/18 21:00 12/10/18 20:59 Ora Boateng MD Nov 10, 2018 16:04
--- NOTE | 2018-11-10 16:22 | NUR ---
*-* INSURANCE *-* ALL AVAILABLE CLINICALS HAVE BEEN FAXED TO: [employer]WELL:[employer] FAX CLINICALS TO [phone]
[2018-11-10] MEDS: cefTRIAXone 1 GM in D5W 55 ML IVPB SCH (18:30)
--- NOTE | 2018-11-10 19:00 | Consultation ---
DATE OF CONSULTATION: 11/10/2018 INFECTIOUS DISEASE CONSULTATION CONSULTING PHYSICIAN: Ora Boateng M.D. ATTENDING PHYSICIAN: Cesar Young M.D. REFERRING PHYSICIAN: Edgar Milton M.D. REASON FOR CONSULTATION: Gram-negative complicated UTI and also possible left lower extremity wound infection. CHIEF COMPLAINT: The patient's chief complaint coming into the hospital is generalized weakness, complicated UTI. HISTORY OF PRESENT ILLNESS: This is an 83-year-old male who presents to [facility] with generalized weakness. Workup shows that he has a significantly positive urinalysis. Urinalysis had 3+ leukocyte esterase and too many to count white blood cells. With the generalized weakness, the patient likely has complicated UTI. Workup shows also that the urine culture has gram-negative organisms and thus he likely has complicated gram-negative UTI. The patient also has left lower extremity wound and could have infected wound. This is being followed by Surgery for local wound care. Infectious Disease consult requested for antibiotic management in this patient. The patient currently is on Rocephin. I will continue Rocephin for now for complicated gram-negative UTI, pending final urine culture. The patient is responsive, but not a very good historian. REVIEW OF SYSTEMS: GENERAL: He has generalized fatigue. He comes with generalized weakness. He has no new focal weakness. He has maybe some confusion. The patient has a wound in the left lower extremity as discussed. He has no fever or chills. HEAD AND NECK: No head pain, neck pain, or neck stiffness. No change in vision. CARDIAC: No chest pain or palpitations. GASTROINTESTINAL: No nausea, vomiting, or diarrhea. GENITOURINARY: No CVA tenderness. No Gibbs. He has some dysuria and frequency. PULMONARY: No congestion, shortness of breath, hemoptysis, or secretions. SKIN: No rash or itching. EXTREMITIES: No extremity pain. NEUROLOGIC: No seizures. PAST MEDICAL HISTORY: The patient has a past medical history of following. The patient has a past medical history of generalized weakness, syncope, GI bleed, history of UTI, history of anemia, history of prostate hypertrophy or BPH, history of acute kidney injury, history of hypertension, history of peripheral artery disease, history of hyperlipidemia, hypertension, lethargy, dyslipidemia. History of constipation. ALLERGIES: The patient has no known drug allergies. No antibiotic allergies. SOCIAL HISTORY: Negative for smoking, alcohol, or drug abuse. FAMILY HISTORY: Positive for hypertension and diabetes. No history of tuberculosis or cancer. MEDICATIONS: Upon reviewing the MAR, the patient is on following medications. The patient is on Flomax, tamsulosin, Rocephin, heparin, famotidine, Colace, docusate, amlodipine, morphine, acetaminophen Zofran, sodium chloride, thiamine, and Rocephin 1 g IV q.24 hours. Outside medications noted and reconciliated. PHYSICAL EXAMINATION: VITAL SIGNS: Temperature is 97.8, pulse rate 70, respiratory rate 20, blood pressure 135/72, saturation 100%. GENERAL: Alert, responsive, in no acute distress. Poor historian. May be confused. No acute distress however. HEAD AND NECK: Oral exam, no thrush. Eyes, no icterus. Neck is supple. No JVD. Normocephalic. No icterus or thrush. HEART: Regular. No obvious gallop or murmur. No friction rub. ABDOMEN: Soft. Positive bowel sounds. Nontender. LUNGS: Clear bilaterally. No rhonchi or rales. SKIN: No rash or dermatitis. MUSCULOSKELETAL: No effusion. Legs are without cellulitis. No septic arthritis either. PERIPHERAL VASCULAR: No cyanosis. No gangrene. GENITOURINARY: No Gibbs. No CVA tenderness. LINES: Line sites without phlebitis. NEUROLOGIC: Generalized weakness. Poorly responsive. May be confused. Poor historian. SKIN: He has a left lower extremity wound in the left tibia area. He has had it for some time, necrotic base, full-thickness, and malodorous in his anterior left tibia. LABORATORY DATA: Laboratory data is as follows UA had 3+ leukocyte esterase, too many to count white blood cells, and moderate bacteria. Creatinine is 3.2. White count 6.4, hemoglobin 8.5. Urine culture greater than 100,000 gram-negative rods or bacilli. Identification is pending. Chest x-ray shows no acute process. ASSESSMENT AND PLAN: 1. The patient has complicated gram-negative UTI with generalized weakness. At this time, I agree with Rocephin 1 g IV q.24 hours for complicated gram-negative UTI especially generalized weakness with likely this complicated gram-negative UTI. Continue Rocephin for gram-negative UTI. Check urine culture final. 2. The patient has left lower extremity wound, possibly infected. Check wound cultures. Check x-ray to rule out osteo. Continue Rocephin and doxycycline for Staph coverage. Avoid nephrotoxic drugs. 3. Chronic kidney disease, elevated creatinine, acute kidney injury. 4. Anemia. 5. Hypertension. Treatment per primary. 6. Hyperlipidemia. 7. Peripheral artery disease. 8. BPH. 9. Anemia. 10. History GI bleed. 11. History of syncope. 12. Skin care protocol and surgery. 13. Weakness. 14. Continue treatment per primary consultants. 15. No known allergies. 16. Social history negative. 17. Family history positive for diabetes and hypertension. 18. MAR was noted. 19. Case was discussed with RN. 20. Continue treatment per primary consultants. 21. Notes and records were noted. 22. Orders were entered. Ora Boateng M.D. DR: KARI JOB#: [id number] CC:
--- NOTE | 2018-11-10 19:35 | NUR ---
HAND-OFF: Report given to ELAINA Fishman.
--- NOTE | 2018-11-10 19:50 | NUR ---
NURSE NOTES: Received pt from ELAINA Pascual. Pt asleep. Bed in lowest position. Call light within reach. Will continue to monitor.
[2018-11-10 20:00] VITALS: BP 158/133
[2018-11-10] MEDS: Tamsulosin 0.4mg cap ORAL SCH (21:00)
[2018-11-11] VITALS: BP 127/65
[2018-11-11 04:00] VITALS: BP 150/78
[2018-11-11] MEDS: Morphine Sulfate 2mg/ml Inj(IV/IM USE ONLY) IVP PRN (06:17)
[2018-11-11 06:26] LABS: BASOPHILS % (AUTO) 0.8 % (0.0-2.0); EOSINOPHILS % (AUTO) 1.6 % (0.0-3.0); HEMATOCRIT 26.8 % (42.0-52.0); HEMOGLOBIN 8.6 G/DL (14.2-18.0); LYMPHOCYTES % (AUTO) 20.3 % (20.0-45.0); MEAN CORPUSCULAR VOLUME 88 FL (80-99); MONOCYTES % (AUTO) 6.9 % (1.0-10.0); NEUTROPHILS % (AUTO) 70.4 % (45.0-75.0); PLATELET COUNT 313 K/UL (150-450); RED BLOOD COUNT 3.05 M/UL (4.70-6.10); RED CELL DISTRIBUTION WIDTH 12.3 % (11.6-14.8)
--- NOTE | 2018-11-11 06:50 | NUR ---
CASE MANAGEMENT:REVIEW 11/09/18 83 YR OLD MALE BIBA FROM HOME AT 1806 CC: GENERALIZED WEAKNESS SI: JESENIA. UTI. ANEMIA 99.0 72 18 175/81 97% ON RA H/H-9.6/28.4 BUN+38 CR+3.5 IS: 500CC NS BOLUS IV ROCEPHIN IV THIAMINE CHEST XRAY CT HEAD BLOOD CX : TO TELEMETRY INTERQUAL CRITERIA MET 11/10/18 SI: JESENIA. UTI. ACUTE ENCEPHALOPATHY. DEHYDRATION 97.3 68 20 129/70 98% ON RA H/H-8.5/25.5 BUN+36 CR+3.2 IS: IV ROCEPHIN Q24 IV DOXYCYCLINE Q12 IVF@75/HR HEPARIN SQ Q12 NORVASC PO QD : TELEMETRY STATUS 11/11/18 SI: JESENIA. UTI. ACUTE ENCEPHALOPATHY. DEHYDRATION 98.0 72 18 150/78 98% ON RA IS: IV ROCEPHIN Q24 IV DOXYCYCLINE Q12 IVF@75/HR HEPARIN SQ Q12 NORVASC PO QD : TELEMETRY STATUS PLAN: CONTINUE HYDRATION CONTINUE ANTIBIOTICS MONITOR RENAL FUNCTION PHYSICAL THERAPY EVAL
[2018-11-11 06:52] LABS: ANION GAP 12 mmol/L (5-15); BLOOD UREA NITROGEN 35 mg/dL (7-18); CALCIUM 8.7 MG/DL (8.5-10.1); CARBON DIOXIDE 21 MMOL/L (21-32); CHLORIDE 109 MMOL/L (98-107); CREATININE 3.3 MG/DL (0.55-1.30); POTASSIUM 4.4 MMOL/L (3.5-5.1); SODIUM 142 MMOL/L (136-145)
--- NOTE | 2018-11-11 07:05 | Nephrology Progress Note ---
Assessment/Plan Assessment/Plan: 1. Acute encephalopathy secondary to dehydration, urinary tract infection. - resolved 2. Urinary tract infection. We will continue Rocephin IV 3. Hypertension. Blood pressure stable. Continue Norvasc. 4. DVT prophylaxis with Lovenox. 5- Wound care per Gen surgery Plan on PT today and DC home tomorrow with home health Subjective Date patient seen: Nov 11, 2018 Time patient seen: 07:03 ROS Limited/Unobtainable: No Allergies: Coded Allergies: No Known Allergies (Unverified , 08/05/14) Subjective Patient feeling better and more oriented Objective Last 24 Hour Vital Signs Date Time Temp Pulse Resp B/P (MAP) Pulse Ox O2 Delivery O2 Flow Rate FiO2 11/11/18 04:00 98.0 72 18 150/78 (102) 98 11/11/18 04:00 74 11/11/18 00:00 71 11/11/18 00:00 98.1 72 19 127/65 (85) 97 11/10/18 21:00 Room Air 11/10/18 20:00 99.6 75 19 158/133 (141) 100 11/10/18 16:00 98.6 67 20 123/58 (79) 97 11/10/18 16:00 65 11/10/18 12:00 72 11/10/18 12:00 97.8 70 20 135/72 (93) 100 11/10/18 09:04 68 129/70 11/10/18 09:00 Room Air 11/10/18 08:00 97.3 68 20 129/70 (89) 98 11/10/18 08:00 67 Intake and Output 11/10/18 11/11/18 19:00 07:00 Intake Total 730 ml Output Total 550 ml Balance 180 ml Intake Oral 730 ml Output Urine Total 550 ml Laboratory Tests 11/11/18 05:50: White Blood Count 7.0, Red Blood Count 3.05L, Hemoglobin 8.6L, Hematocrit 26.8L , Mean Corpuscular Volume 88, Mean Corpuscular Hemoglobin 28.3, Mean Corpuscular Hemoglobin Concent 32.2, Red Cell Distribution Width 12.3, Platelet Count 313, Mean Platelet Volume 6.0L, Neutrophils (%) (Auto) 70.4, Lymphocytes ( %) (Auto) 20.3, Monocytes (%) (Auto) 6.9, Eosinophils (%) (Auto) 1.6, Basophils (%) (Auto) 0.8, Erythrocyte Sedimentation Rate [Pending], Sodium Level 142, Potassium Level 4.4, Chloride Level 109H, Carbon Dioxide Level 21, Anion Gap 12 , Blood Urea Nitrogen 35H, Creatinine 3.3H, Estimat Glomerular Filtration Rate , Glucose Level 106, Calcium Level 8.7 Height (Feet): 5 Height (Inches): 8.00 Weight (Pounds): 167 General Appearance: no apparent distress, alert EENT: normal ENT inspection Neck: normal alignment, supple Cardiovascular: normal rate, regular rhythm Respiratory/Chest: lungs clear, normal breath sounds Abdomen: non tender, soft Edema: no edema noted Arm (L), no edema noted Arm (R), no edema noted Leg (L), no edema noted Leg (R), no edema noted Pedal (L), no edema noted Pedal (R), no edema noted Generalized Edgar Milton MD Nov 11, 2018 07:05
--- NOTE | 2018-11-11 07:46 | NUR ---
NURSE NOTES: Received report from Sravanthi DELANEY. Pt sitting in bed and eating his breakfast. No signs of distress noted. Bed in locked and placed in its lowest position. IV in RAC 20G running with NS @75ml/hr patent and asymptomatic. 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 On room air. Will continue to plan of care.
--- NOTE | 2018-11-11 07:46 | NUR ---
HAND-OFF: Report given to ELAINA Salazar. Pt stable.
[2018-11-11] MEDS: Docusate 100mg cap ORAL SCH ×2 (08:37→20:54)
[2018-11-11 09:00] VITALS: BP 148/84
[2018-11-11] MEDS: Heparin 5000 units/ml inj SUBQ SCH ×2 (09:00→20:54)
--- NOTE | 2018-11-11 09:27 | Diagnostic Imaging Report ---
Indication: Mid tibial region ulcer Technique: 2 views of the left tibia and fibula Comparison: none Findings: There is chronic appearing angulation deformity of the midshaft tibia. There is irregularity of the lateral mid shaft tibial cortex with some evidence of periostitis there is mixed areas of cortical and medullary sclerosis and lucency along the mid tibial shaft. There is a somewhat discrete 10 mm lucency in the lateral tibial cortex with some surrounding sclerotic bone. No acute fractures. The fibula is unremarkable. No radiopaque foreign body Impression: Abnormal appearing mid shaft tibia, findings as above. Findings could all represent chronic changes. However, the irregular appearance of the lateral cortex and periostitis does raise possibility of acute osteomyelitis, given the stated clinical history of overlying ulcer. In addition, focus of lucency in the lateral cortex with surrounding sclerosis raises the possibility of a Jose's abscess, as seen in chronic osteomyelitis. Correlate with clinical and historical findings, consider MRI for better characterization if clinically indicated.
--- NOTE | 2018-11-11 09:57 | NUR ---
*-* INSURANCE *-* UPDATED CLINICALS AND REVIEWS HAVE BEEN FAXED TO: SNEHAL MAXWELL:RAFFI/TEDDY FAX CLINICALS TO [phone]
--- NOTE | 2018-11-11 11:44 | NUR ---
RADIOLOGY DEPT., LEFT TIBIA / FIBULA X-RAYS DONE.-P.DYE
[2018-11-11 12:00] VITALS: BP 108/56
--- NOTE | 2018-11-11 14:31 | NUR ---
RD ASSESSMENT & RECOMMENDATIONS SEE CARE ACTIVITY FOR COMPLETE ASSESSMENT DAILY ESTIMATED NEEDS: Needs based on Wound healing, CKD/ 76kg 25-30 kcals/kg 6606-5291 total kcals 1.0-1.5 g protein/kg 76-114 g total protein 25-30 mL/kg 0051-0941 total fluid mLs NUTRITION DIAGNOSIS: * Increased kcal/prot intake needs R/T wound healing as evidenced by admitted w/ full thickness wound @ deni L tibia. * Altered nutrition related lab R/T CKD as evidenced by elev creat (3.3) CURRENT DIET: No added salt PO DIET RECOMMENDATIONS: LOW NA/ texture as tolerated ADDITIONAL RECOMMENDATIONS: * Standing wt as able for accurate CBW * Wound healing: add MVI x 1, Vit C 500mg BID, ZnSO4 220mg QD x 10 days : Deniz 1pkt BID
--- NOTE | 2018-11-11 15:05 | Surgery Progress Note ---
Surgery Progress Note Subjective Additional Comments no acute events. resting comfortable. no n/v/f/c. labs noted. plain film noted. esr elevated Objective Last 24 Hour Vital Signs Date Time Temp Pulse Resp B/P (MAP) Pulse Ox O2 Delivery O2 Flow Rate FiO2 11/11/18 12:00 62 11/11/18 12:00 97.9 70 20 108/56 (73) 98 11/11/18 09:00 97.9 74 18 148/84 (105) 99 11/11/18 09:00 Room Air 11/11/18 08:37 148 84/74 11/11/18 08:00 77 11/11/18 04:00 98.0 72 18 150/78 (102) 98 11/11/18 04:00 74 11/11/18 00:00 71 11/11/18 00:00 98.1 72 19 127/65 (85) 97 11/10/18 21:00 Room Air 11/10/18 20:00 99.6 75 19 158/133 (141) 100 11/10/18 16:00 98.6 67 20 123/58 (79) 97 11/10/18 16:00 65 I&O Intake and Output 11/10/18 11/11/18 18:59 06:59 Intake Total 730 ml Output Total 550 ml Balance 180 ml Intake Oral 730 ml Output Urine Total 550 ml Dressing: dry Wound: clean, other Drains: none Cardiovascular: RSR Respiratory: clear Abdomen: soft, flat, non-tender, present bowel sounds, non-distended Extremities: tenderness, no cyanosis Laboratory Tests Test 11/11/18 05:50 White Blood Count 7.0 K/UL (4.8-10.8) Red Blood Count 3.05 M/UL (4.70-6.10) L Hemoglobin 8.6 G/DL (14.2-18.0) L Hematocrit 26.8 % (42.0-52.0) L Mean Corpuscular Volume 88 FL (80-99) Mean Corpuscular Hemoglobin 28.3 PG (27.0-31.0) Mean Corpuscular Hemoglobin Concent 32.2 G/DL (32.0-36.0) Red Cell Distribution Width 12.3 % (11.6-14.8) Platelet Count 313 K/UL (150-450) Mean Platelet Volume 6.0 FL (6.5-10.1) L Neutrophils (%) (Auto) 70.4 % (45.0-75.0) Lymphocytes (%) (Auto) 20.3 % (20.0-45.0) Monocytes (%) (Auto) 6.9 % (1.0-10.0) Eosinophils (%) (Auto) 1.6 % (0.0-3.0) Basophils (%) (Auto) 0.8 % (0.0-2.0) Erythrocyte Sedimentation Rate 125 MM/HR (0-20) H Sodium Level 142 MMOL/L (136-145) Potassium Level 4.4 MMOL/L (3.5-5.1) Chloride Level 109 MMOL/L (98-107) H Carbon Dioxide Level 21 MMOL/L (21-32) Anion Gap 12 mmol/L (5-15) Blood Urea Nitrogen 35 mg/dL (7-18) H Creatinine 3.3 MG/DL (0.55-1.30) H Estimat Glomerular Filtration Rate mL/min (>60) Glucose Level 106 MG/DL (74-106) Calcium Level 8.7 MG/DL (8.5-10.1) Plan Problems: (1) Urinary tract infection (2) Anemia (3) Prostate hypertrophy (4) Syncope (5) GI bleed (6) Episode of generalized weakness (7) Encounter for medication refill (8) Encounter for medication refill (9) JESENIA (acute kidney injury) (10) Hypertension (11) BPH (benign prostatic hyperplasia) (12) PAD (peripheral artery disease) (13) HLD (hyperlipidemia) (14) Open wound Assessment & Plan: Patient presented on admission with a wound to his anterior Left tibia. He stated he has had wound for almost years but is not aware of how he developed wound. use to have injury to both legs for year from work but most healed. left mid shaft tibial stage 4 Full thickness wound that is malodorous .Base of wound is necrotic down to bone which has dry necrotic layer. Small amt brown exudate noted which is mainly sebum. Darker skin tone without elevation in skin temp,fluctuance or induration noted. Dry flaky skin noted to LLE. states wound use to be much large and has contracted to this small necrotic wound now. approximately 4cm x 3cm x 1cm down to bone. chronic dry. L foot warm to touch. Pt denied fever, or pain at site of wound. LLE washed with soap and water and moisturized. Findings: There is chronic appearing angulation deformity of the midshaft tibia. There is irregularity of the lateral mid shaft tibial cortex with some evidence of periostitis there is mixed areas of cortical and medullary sclerosis and lucency along the mid tibial shaft. There is a somewhat discrete 10 mm lucency in the lateral tibial cortex with some surrounding sclerotic bone. No acute fractures. The fibula is unremarkable. No radiopaque foreign body Impression: Abnormal appearing mid shaft tibia, findings as above. Findings could all represent chronic changes. However, the irregular appearance of the lateral cortex and periostitis does raise possibility of acute osteomyelitis, given the stated clinical history of overlying ulcer. In addition, focus of lucency in the lateral cortex with surrounding sclerosis raises the possibility of a Jose's abscess, as seen in chronic osteomyelitis. Correlate with clinical and historical findings, consider MRI for better characterization if clinically indicated. Tx Plan: Left lower extremity wound, clean with Saline. Therahoney gel applied and covered with Optifoam drsg. discussed wound care plans with patient. explained to him that given how chronic wound is it will likely not heal much further and stay as open chronic wound. I offered consideration for debridement and possible flap but patient not interested at this time. states wound does not bother him and he will be okay with it the way it is. MRI ordered given ESR and plain films will follow with recs thank you Dirk Torrez Nov 11, 2018 15:05
[2018-11-11] MEDS ORDERED: Gadavist 7.5mMol/7.5ml vial IV PRN (15:15)
[2018-11-11 16:00] VITALS: BP 127/70
--- NOTE | 2018-11-11 17:04 | Diagnostic Imaging Report ---
Indication: Acute renal failure Technique: Grayscale and duplex images of the kidneys, retroperitoneum, and bladder were obtained. Comparison: None Findings: Right kidney measures 9.1 cm in length. Left kidney measures 9.7 cm in length. Both kidneys demonstrate increased echogenicity. No hydronephrosis. There are small renal cysts seen bilaterally.. Normal inferior vena cava. Bladder is normal. Prevoid bladder volume is 88 mL. Patient had no urge to void at the time of exam. Calculated prostate volume 38 mL. Incidental finding noted of a right lobe liver cyst Impression: Echogenic kidneys bilaterally, consistent with chronic medical renal disease Negative for hydronephrosis Incidental finding of small bilateral renal cysts and right lobe hepatic cyst .
[2018-11-11] MEDS: cefTRIAXone 1 GM in D5W 55 ML IVPB SCH (18:07)
--- NOTE | 2018-11-11 19:25 | NUR ---
HAND-OFF: Report given to Stephanie RN. Pt remains stable.
[2018-11-11 20:00] VITALS: BP 121/69
--- NOTE | 2018-11-11 20:25 | NUR ---
NURSE NOTES: Received pt and report from ELAINA Brice. Observed pt ambulating steady around pt's room. Pt is A/O x3. lift driver is in placed, IV site intact, asymptomatic and patent. Bed is in the lowest position and locked, call light within reach. No signs/symptoms of acute distress noted at this time. Will continue plan of care.
[2018-11-11] MEDS: Tamsulosin 0.4mg cap ORAL SCH (20:54)
[2018-11-12] VITALS: BP 128/75
[2018-11-12 04:00] VITALS: BP 132/84
--- NOTE | 2018-11-12 07:31 | NUR ---
HAND-OFF: Report given to ELAINA Brice.
--- NOTE | 2018-11-12 07:31 | NUR ---
NURSE NOTES: Received report from Anahi RN. Alert and oriented x4. Pt sitting in bed and eating breakfast. Pt denied pain at this time. No signs of distress noted. IV in R hand 22G SL patent and asymptomatic running with NS @75ml/hr. Side railsx2 up for safety and bed locked. On room air. No SOB noted. Call light within east reach. Will continue to plan of care.
[2018-11-12 07:40] VITALS: BP 162/78
--- NOTE | 2018-11-12 08:12 | NUR ---
NURSE NOTES: Patient left from tele for MRI of left tibia. No signs of distress noted.
--- NOTE | 2018-11-12 08:34 | Nephrology Progress Note ---
Assessment/Plan Assessment/Plan: 1. Acute encephalopathy secondary to dehydration, urinary tract infection. - resolved 2. UTI- per PCP 3. Hypertension. - stable at goal 4. DVT prophylaxis with Lovenox. 5- Wound care per Gen surgery of left tibia - MRI today 6) JESENIA on CKD- BL Cr 2016 was 1.7 this low Cr 3's may be his new baseline DC home with HH once cleared by gen surgery and ID Subjective Date patient seen: Nov 12, 2018 Time patient seen: 08:31 ROS Limited/Unobtainable: No Allergies: Coded Allergies: No Known Allergies (Unverified , 08/05/14) Subjective Patient getting MRI of left tibia Objective Last 24 Hour Vital Signs Date Time Temp Pulse Resp B/P (MAP) Pulse Ox O2 Delivery O2 Flow Rate FiO2 11/12/18 04:00 76 11/12/18 04:00 98.5 88 18 132/84 (100) 99 11/12/18 00:00 98.2 72 20 128/75 (92) 100 11/12/18 00:00 72 11/11/18 21:00 Room Air 11/11/18 20:00 83 11/11/18 20:00 99.0 74 20 121/69 (86) 100 11/11/18 16:00 70 11/11/18 16:00 98.1 70 18 127/70 (89) 97 11/11/18 12:00 62 11/11/18 12:00 97.9 70 20 108/56 (73) 98 11/11/18 09:00 97.9 74 18 148/84 (105) 99 11/11/18 09:00 Room Air 11/11/18 08:37 148 84/74 Intake and Output 11/11/18 11/12/18 19:00 07:00 Intake Total 1000 ml 615 ml Balance 1000 ml 615 ml Intake Oral 300 ml 240 ml IV Total 700 ml 375 ml # Voids 3 2 Height (Feet): 5 Height (Inches): 8.00 Weight (Pounds): 167 Edgar Milton MD Nov 12, 2018 08:34
[2018-11-12] MEDS: Docusate 100mg cap ORAL SCH ×2 (09:27→20:23)
[2018-11-12] MEDS: Heparin 5000 units/ml inj SUBQ SCH ×2 (09:28→20:23)
--- NOTE | 2018-11-12 09:51 | NUR ---
MRI LEFT TIBIA COMPLETED. NO NEED FOR CONTRAST, PER DR. GRAYSON. PT CREATININE LEVELS VERY HIGH (3.5)
--- NOTE | 2018-11-12 10:34 | NUR ---
CASE MANAGEMENT:REVIEW 11/12/18 SI: ACUTE ENCEPHALOPATHY D/T DEHYDRATION UTI. JESENIA 97.8 78 20 162/78 99% ON RA IS: IV ROCEPHIN Q24 IV DOXYCYCLINE Q12 HEPARIN SQ Q12 PEPCID PO QD NORVASC PO QD IV MORPHINE Q4HRS PRN : TELEMETRY DCP: FROM HOME PLAN: MRI TIBIA
--- NOTE | 2018-11-12 10:59 | Diagnostic Imaging Report ---
Indication: Pain, ulcer, open wound on anterior tibial region, abnormal recent plain radiograph Technique: Sagittal, axial, and coronal T1 and STIR images obtained of the tibia and fibula Comparison: none Findings: There is a soft tissue defect overlying the anterior mid tibia. This is marked with an MRI marker. There is circumferential edema of the subcutaneous fat of the mid to distal leg. No marrow or cortical edema is seen deep to the ulcer. No drainable abscess collection demonstrated There is medial bowing of the tibia and fibula and considerable osseous sclerosis of both the cortex and the medulla in the midportion of the tibia, corresponding to abnormalities demonstrated on recent plain radiograph. No marrow edema is evident. In the anteromedial midportion of the tibia, defect a defect in the cortical surface of the bone which measures approximately 5 mm in diameter, with the defect extending inward into the medullary space, containing slightly low T2 tube and high T1 signal. This appears to be outlined by a thick rim of signal void indicating bony sclerosis and there is absence of surrounding peripheral edema. This probably corresponds to the cortical lucency demonstrated on recent plain radiograph In the proximal tibia, there is an irregular medullary lesion which demonstrates high STIR and low T1 signal. This measures approximately 10 x 10 x 15 mm. The borders are discrete and there is no evidence of surrounding marrow edema. A few small high STIR signal and low T1 signal foci are seen scattered through the distal tibial medullary space. No associated marrow edema demonstrated. Impression: Anteromedial soft tissue ulcer demonstrated. No underlying marrow edema to suggest osteomyelitis. High STIR signal in the surrounding subcutaneous fat consistent with edema. This may be due to cellulitis or be vasogenic in nature. No drainable abscess demonstrated. Cortical defect in the anteromedial tibia distal to the ulcer and corresponding to the radiographic cortical lucency described on recent plain radiograph. This appears to be a chronic defect likely related to prior insult. Absence of marrow edema makes Jose's abscess unlikely Nonspecific signal abnormality in the proximal tibia. This may indicate a process such as an enchondroma. No marrow abnormality to suggest active osteomyelitis. Consider bone scan to determine if metabolically active Nonspecific focal signal abnormalities in the distal tibia without evidence of marrow edema, likely residua of prior insults. Bone scan likewise may be useful to determine if any disease are metabolically active
[2018-11-12 11:49] LABS: ANION GAP 11 mmol/L (5-15); BLOOD UREA NITROGEN 37 mg/dL (7-18); CALCIUM 9.4 MG/DL (8.5-10.1); CARBON DIOXIDE 21 MMOL/L (21-32); CHLORIDE 108 MMOL/L (98-107); CREATININE 3.2 MG/DL (0.55-1.30); POTASSIUM 4.6 MMOL/L (3.5-5.1); SODIUM 140 MMOL/L (136-145)
--- NOTE | 2018-11-12 11:57 | NUR ---
*-* INSURANCE *-* UPDATED CLINICALS AND REVIEWS HAVE BEEN FAXED TO: SNEHAL MAXWELL:DRAGAN F:[phone]
[2018-11-12 11:58] VITALS: BP 169/77
--- NOTE | 2018-11-12 13:44 | Surgery Progress Note ---
Surgery Progress Note Subjective Additional Comments doing well. no complaints. no n/v/f/c. exam stable MRI noted Objective Last 24 Hour Vital Signs Date Time Temp Pulse Resp B/P (MAP) Pulse Ox O2 Delivery O2 Flow Rate FiO2 11/12/18 11:58 97.5 67 18 169/77 (107) 97 11/12/18 09:27 78 162/78 11/12/18 09:00 Room Air 11/12/18 08:00 95 11/12/18 07:40 97.8 78 20 162/78 (106) 99 11/12/18 04:00 76 11/12/18 04:00 98.5 88 18 132/84 (100) 99 11/12/18 00:00 98.2 72 20 128/75 (92) 100 11/12/18 00:00 72 11/11/18 21:00 Room Air 11/11/18 20:00 83 11/11/18 20:00 99.0 74 20 121/69 (86) 100 11/11/18 16:00 70 11/11/18 16:00 98.1 70 18 127/70 (89) 97 I&O Intake and Output 11/11/18 11/12/18 18:59 06:59 Intake Total 1225 ml 690 ml Balance 1225 ml 690 ml Intake Oral 300 ml 240 ml IV Total 925 ml 450 ml # Voids 3 2 Dressing: dry Wound: clean Drains: none Cardiovascular: RSR Respiratory: clear Abdomen: soft, flat, non-tender, present bowel sounds Extremities: no edema, no tenderness, no cyanosis Laboratory Tests Test 11/12/18 10:28 Sodium Level 140 MMOL/L (136-145) Potassium Level 4.6 MMOL/L (3.5-5.1) Chloride Level 108 MMOL/L (98-107) H Carbon Dioxide Level 21 MMOL/L (21-32) Anion Gap 11 mmol/L (5-15) Blood Urea Nitrogen 37 mg/dL (7-18) H Creatinine 3.2 MG/DL (0.55-1.30) H Estimat Glomerular Filtration Rate mL/min (>60) Glucose Level 111 MG/DL (74-106) H Calcium Level 9.4 MG/DL (8.5-10.1) Plan Problems: (1) Urinary tract infection (2) Anemia (3) Prostate hypertrophy (4) Syncope (5) GI bleed (6) Episode of generalized weakness (7) Encounter for medication refill (8) Encounter for medication refill (9) JESENIA (acute kidney injury) (10) Hypertension (11) BPH (benign prostatic hyperplasia) (12) PAD (peripheral artery disease) (13) HLD (hyperlipidemia) (14) Open wound Assessment & Plan: Patient presented on admission with a wound to his anterior Left tibia. He stated he has had wound for almost years but is not aware of how he developed wound. use to have injury to both legs for year from work but most healed. left mid shaft tibial stage 4 Full thickness wound that is malodorous .Base of wound is necrotic down to bone which has dry necrotic layer. Small amt brown exudate noted which is mainly sebum. Darker skin tone without elevation in skin temp,fluctuance or induration noted. Dry flaky skin noted to LLE. states wound use to be much large and has contracted to this small necrotic wound now. approximately 4cm x 3cm x 1cm down to bone. chronic dry. L foot warm to touch. Pt denied fever, or pain at site of wound. LLE washed with soap and water and moisturized. Findings: There is chronic appearing angulation deformity of the midshaft tibia. There is irregularity of the lateral mid shaft tibial cortex with some evidence of periostitis there is mixed areas of cortical and medullary sclerosis and lucency along the mid tibial shaft. There is a somewhat discrete 10 mm lucency in the lateral tibial cortex with some surrounding sclerotic bone. No acute fractures. The fibula is unremarkable. No radiopaque foreign body Impression: Abnormal appearing mid shaft tibia, findings as above. Findings could all represent chronic changes. However, the irregular appearance of the lateral cortex and periostitis does raise possibility of acute osteomyelitis, given the stated clinical history of overlying ulcer. In addition, focus of lucency in the lateral cortex with surrounding sclerosis raises the possibility of a Jose's abscess, as seen in chronic osteomyelitis. Correlate with clinical and historical findings, consider MRI for better characterization if clinically indicated. MRI w/ Impression: Anteromedial soft tissue ulcer demonstrated. No underlying marrow edema to suggest osteomyelitis. High STIR signal in the surrounding subcutaneous fat consistent with edema. This may be due to cellulitis or be vasogenic in nature. No drainable abscess demonstrated. Cortical defect in the anteromedial tibia distal to the ulcer and corresponding to the radiographic cortical lucency described on recent plain radiograph. This appears to be a chronic defect likely related to prior insult. Absence of marrow edema makes Jose's abscess unlikely Nonspecific signal abnormality in the proximal tibia. This may indicate a process such as an enchondroma. No marrow abnormality to suggest active osteomyelitis. Consider bone scan to determine if metabolically active Nonspecific focal signal abnormalities in the distal tibia without evidence of marrow edema, likely residua of prior insults. Bone scan likewise may be useful to determine if any disease are metabolically active Tx Plan: Left lower extremity wound, clean with Saline. Therahoney gel applied and covered with Optifoam drsg. discussed wound care plans with patient. explained to him that given how chronic wound is it will likely not heal much further and stay as open chronic wound. I offered consideration for debridement and possible flap but patient not interested at this time. states wound does not bother him and he will be okay with it the way it is. MRI noted. no acute osteo. cont with dressing changes d/c planning will follow with recs thank you Dirk Torrez Nov 12, 2018 13:43
[2018-11-12 16:00] VITALS: BP 123/64
[2018-11-12] MEDS: cefTRIAXone 1 GM in D5W 55 ML IVPB SCH (18:21)
--- NOTE | 2018-11-12 19:25 | NUR ---
NURSE NOTES: Received pt and report from ELAINA Brice. Observed pt resting in bed and watching television. wood cutter is in placed, IV site intact, asymptomatic, and patent. Bed is in the lowest position and locked. Call light within reach. No signs/symptoms of acute distress noted at this time. Will continue plan of care.
--- NOTE | 2018-11-12 19:34 | NUR ---
HAND-OFF: Report given to Anahi RN. Pt remains stable.
[2018-11-12 20:00] VITALS: BP 148/81
--- NOTE | 2018-11-12 20:13 | Infectious Diseases Prog Note ---
Assessment/Plan Assessment/Plan ASSESSMENT AND PLAN: 1. e.coli uti, staph aureus left leg wound infection and possible cellulitis - doxycycline and ceftriaxone - day # 3 antibiotics - check sensitivities of staph aureus - MRI without osteomyelitis, report noted - can transition to oral antibiotics for one week once final wound culture back - avoid nephrotoxic antibiotic if possible 2. wound care per surgery, notes reviewed 3. Chronic kidney disease, elevated creatinine, acute kidney injury. 4. Anemia. 5. Hypertension. Treatment per primary. 6. Hyperlipidemia. 7. Peripheral artery disease. 8. BPH. 9. Anemia. 10. History GI bleed. 11. History of syncope. 12. Skin care protocol and surgery. 13. Weakness. 14. Continue treatment per primary consultants. 15. No known allergies. 16. Social history negative. 17. Family history positive for diabetes and hypertension. 18. MAR was noted. 19. Case was discussed with RN. 20. Continue treatment per primary consultants. 21. Notes and records were noted. 22. Orders were entered. Subjective Constitutional: Reports: fatigue; Denies: fever HEENT: Denies: congestion Respiratory: Denies: shortness of breath Cardiovascular: Denies: chest pain Gastrointestinal/Abdominal: Reports: other - no abdominal pain ; Denies: nausea , vomiting, diarrhea Genitourinary: Reports: other - no cva pain; Denies: dysuria, hematuria Neurologic: Denies: headache Psychiatric: Denies: depression Skin: Denies: rash Hematologic: Denies: bleeding Musculoskeletal: Denies: pain Allergies: Coded Allergies: No Known Allergies (Unverified , 08/05/14) Objective Vital Signs Last 24 Hour Vital Signs Date Time Temp Pulse Resp B/P (MAP) Pulse Ox O2 Delivery O2 Flow Rate FiO2 11/12/18 16:00 74 11/12/18 16:00 98.5 70 20 123/64 (83) 97 11/12/18 12:00 66 11/12/18 11:58 97.5 67 18 169/77 (107) 97 11/12/18 09:27 78 162/78 11/12/18 09:00 Room Air 11/12/18 08:00 95 11/12/18 07:40 97.8 78 20 162/78 (106) 99 11/12/18 04:00 76 11/12/18 04:00 98.5 88 18 132/84 (100) 99 11/12/18 00:00 98.2 72 20 128/75 (92) 100 11/12/18 00:00 72 11/11/18 21:00 Room Air 11/11/18 20:00 83 11/11/18 20:00 99.0 74 20 121/69 (86) 100 Height (Feet): 5 Height (Inches): 8.00 Weight (Pounds): 167 General Appearance: no acute distress HEENT: normocephalic, atraumatic, anicteric, mucous membranes moist Respiratory/Chest: lungs clear, normal breath sounds, no respiratory distress, no accessory muscle use Cardiovascular: normal rate, regular rhythm, no gallop/murmur, no JVD Abdomen: normal bowel sounds, soft, non tender, no organomegaly, non distended Genitourinary: other - no murrell, no cva pain Extremities: no cyanosis, other - left leg wound noted - necrosis and slough noted, some edema, ? 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 No underlying marrow edema to suggest osteomyelitis. High STIR signal in the surrounding subcutaneous fat consistent with edema. This may be due to cellulitis or be vasogenic in nature. No drainable abscess demonstrated. Cortical defect in the anteromedial tibia distal to the ulcer and corresponding to the radiographic cortical lucency described on recent plain radiograph. This appears to be a chronic defect likely related to prior insult. Absence of marrow edema makes Jose's abscess unlikely Nonspecific signal abnormality in the proximal tibia. This may indicate a process such as an enchondroma. No marrow abnormality to suggest active osteomyelitis. Consider bone scan to determine if metabolically active Nonspecific focal signal abnormalities in the distal tibia without evidence of marrow edema, likely residua of prior insults. Bone scan likewise may be useful to determine if any disease are metabolically active Microbiology Date/Time Source Procedure Growth Status 11/09/18 18:35 Blood Blood Culture - Preliminary NO GROWTH AFTER 48 HOURS Resulted 11/09/18 18:35 Urine,Clean Catch Urine Culture - Final Escherichia Coli Complete 11/10/18 17:00 Leg Left Gram Stain - Final Resulted 11/10/18 17:00 Wound Culture - Preliminary Staphylococcus Aureus Diphtheroids Resulted Microbiology Date/Time Source Procedure Growth Status 11/10/18 17:00 Leg Left Gram Stain - Final Resulted 11/10/18 17:00 Wound Culture - Preliminary Staphylococcus Aureus Diphtheroids Resulted Labs Test 11/09/18 22:50 11/10/18 06:15 11/11/18 05:50 11/12/18 10:28 Ammonia 23 umol/L (11-32) Thyroid Stimulating Hormone (TSH) 0.619 uiU/mL (0.358-3.740) Serum Alcohol < 3 mg/dL White Blood Count 6.4 K/UL (4.8-10.8) 7.0 K/UL (4.8-10.8) Red Blood Count 2.93 M/UL (4.70-6.10) 3.05 M/UL (4.70-6.10) Hemoglobin 8.5 G/DL (14.2-18.0) 8.6 G/DL (14.2-18.0) Hematocrit 25.5 % (42.0-52.0) 26.8 % (42.0-52.0) Mean Corpuscular Volume 87 FL (80-99) 88 FL (80-99) Mean Corpuscular Hemoglobin 29.1 PG (27.0-31.0) 28.3 PG (27.0-31.0) Mean Corpuscular Hemoglobin Concent 33.4 G/DL (32.0-36.0) 32.2 G/DL (32.0-36.0) Red Cell Distribution Width 12.8 % (11.6-14.8) 12.3 % (11.6-14.8) Platelet Count 324 K/UL (150-450) 313 K/UL (150-450) Mean Platelet Volume 5.8 FL (6.5-10.1) 6.0 FL (6.5-10.1) Neutrophils (%) (Auto) 72.7 % (45.0-75.0) 70.4 % (45.0-75.0) Lymphocytes (%) (Auto) 18.0 % (20.0-45.0) 20.3 % (20.0-45.0) Monocytes (%) (Auto) 7.6 % (1.0-10.0) 6.9 % (1.0-10.0) Eosinophils (%) (Auto) 1.1 % (0.0-3.0) 1.6 % (0.0-3.0) Basophils (%) (Auto) 0.6 % (0.0-2.0) 0.8 % (0.0-2.0) Sodium Level 141 MMOL/L (136-145) 142 MMOL/L (136-145) 140 MMOL/L (136-145) Potassium Level 4.1 MMOL/L (3.5-5.1) 4.4 MMOL/L (3.5-5.1) 4.6 MMOL/L (3.5-5.1) Chloride Level 109 MMOL/L (98-107) 109 MMOL/L (98-107) 108 MMOL/L (98-107) Carbon Dioxide Level 20 MMOL/L (21-32) 21 MMOL/L (21-32) 21 MMOL/L (21-32) Anion Gap 12 mmol/L (5-15) 12 mmol/L (5-15) 11 mmol/L (5-15) Blood Urea Nitrogen 36 mg/dL (7-18) 35 mg/dL (7-18) 37 mg/dL (7-18) Creatinine 3.2 MG/DL (0.55-1.30) 3.3 MG/DL (0.55-1.30) 3.2 MG/DL (0.55-1.30) Estimat Glomerular Filtration Rate mL/min (>60) mL/min (>60) mL/min (>60) Glucose Level 99 MG/DL (74-106) 106 MG/DL (74-106) 111 MG/DL (74-106) Calcium Level 8.6 MG/DL (8.5-10.1) 8.7 MG/DL (8.5-10.1) 9.4 MG/DL (8.5-10.1) Erythrocyte Sedimentation Rate 125 MM/HR (0-20) Laboratory Tests Test 11/12/18 10:28 Sodium Level 140 MMOL/L (136-145) Potassium Level 4.6 MMOL/L (3.5-5.1) Chloride Level 108 MMOL/L (98-107) H Carbon Dioxide Level 21 MMOL/L (21-32) Anion Gap 11 mmol/L (5-15) Blood Urea Nitrogen 37 mg/dL (7-18) H Creatinine 3.2 MG/DL (0.55-1.30) H Estimat Glomerular Filtration Rate mL/min (>60) Glucose Level 111 MG/DL (74-106) H Calcium Level 9.4 MG/DL (8.5-10.1) Current Medications Medications (Trade) Dose Ordered Sig/Yesenia Route PRN Reason Start Time Stop Time Status Last Admin Dose Admin Acetaminophen (Tylenol) 650 mg Q4H PRN ORAL Mild Pain (Pain Scale 1-3) 11/09/18 21:30 12/09/18 21:29 11/10/18 09:03 Amlodipine Besylate (Norvasc) 10 mg DAILY ORAL 11/10/18 09:00 12/10/18 08:59 11/12/18 09:27 Ceftriaxone Sodium 1 gm/ Dextrose 55 ml @ 110 mls/hr Q24H IVPB 11/10/18 19:00 11/17/18 18:59 11/12/18 18:21 Dextrose (Dextrose 50%) 25 ml Q30M PRN IV Hypoglycemia 11/09/18 21:30 12/09/18 21:29 Dextrose (Dextrose 50%) 50 ml Q30M PRN IV Hypoglycemia 11/09/18 21:30 12/09/18 21:29 Docusate Sodium (Colace) 100 mg EVERY 12 HOURS ORAL 11/10/18 09:00 12/10/18 08:59 11/12/18 09:27 Doxycycline Hyclate 100 mg/ Dextrose 100 ml @ 100 mls/hr Q12HR IV 11/10/18 18:00 11/17/18 17:59 11/12/18 09:33 Famotidine (Pepcid) 40 mg DAILY ORAL 11/10/18 09:00 12/10/18 08:59 11/12/18 09:27 Gadobutrol (Gadavist) 7.5 mmol NOW PRN IV Radiology Procedure 11/11/18 15:15 11/15/18 15:05 Heparin Sodium (Porcine) (Heparin 5000 units/ml) 5,000 units EVERY 12 HOURS SUBQ 11/10/18 09:00 12/10/18 08:59 11/12/18 09:28 Morphine Sulfate (Morphine Sulfate) 1 mg Q4H PRN IVP For Pain 11/10/18 00:15 11/17/18 00:14 11/11/18 06:17 Ondansetron HCl (Zofran) 4 mg Q6H PRN IVP Nausea & Vomiting 11/09/18 21:30 12/09/18 21:29 Tamsulosin HCl (Flomax) 0.4 mg BEDTIME ORAL 11/10/18 21:00 12/10/18 20:59 11/11/18 20:54 Ora Boateng MD Nov 12, 2018 20:13
[2018-11-12] MEDS: Tamsulosin 0.4mg cap ORAL SCH (20:23)
[2018-11-13] VITALS: BP 145/89
--- NOTE | 2018-11-13 00:20 | NUR ---
TRANSFER TO FLOOR: Patient transferred to [facility], per Dr. Milton. Pt transferred to room and unit without any incident. surveillance monitor removed. Report given to ELAINA Gomez. Belongings list checked and accounted for, medications given to ELAINA Gomez. Vital signs are stable. Orders transferred.
--- NOTE | 2018-11-13 00:35 | NUR ---
NURSE NOTES: 63 year old male patient received from telemetry 2E. Patient is currently in bed, awake and alertx3. No complaints of pain at this time. Patient is breathing on room air with no signs of respiratory distress. Bed is in lowest position with 2 bed rails up. Call light is within easy reach. Will continue to monitor.
[2018-11-13 02:34] VITALS: BP 143/78
[2018-11-13 04:00] VITALS: BP 144/88
--- NOTE | 2018-11-13 04:00 | NUR ---
RECEIVED A CALL FROM LAB, PATIENTS WOUND IS POSITIVE FOR MRSA, PRIMARY RN INSTRUCTED TO NOTIFY DR MONET AT 0645 AM, PATIENT PLACED IN CONTACT ISOLATION
[2018-11-13] MEDS ORDERED: Morphine Sulfate 2mg/ml Inj(IV/IM USE ONLY) IVP PRN (04:15)
--- NOTE | 2018-11-13 04:20 | NUR ---
NURSE NOTES: Took photo and performed dressing change around 0400 for wound of the left lower extremity.
--- NOTE | 2018-11-13 06:34 | NUR ---
NURSE NOTES: Called Dr Boateng and notified him of the patient's positive result for MRSA wound. Left a voicemail in his emergency inbox. Waiting for callback.
[2018-11-13 07:20] LABS: ANION GAP 10 mmol/L (5-15); BLOOD UREA NITROGEN 40 mg/dL (7-18); CALCIUM 9.2 MG/DL (8.5-10.1); CARBON DIOXIDE 21 MMOL/L (21-32); CHLORIDE 110 MMOL/L (98-107); CREATININE 3.2 MG/DL (0.55-1.30); POTASSIUM 4.5 MMOL/L (3.5-5.1); SODIUM 141 MMOL/L (136-145)
--- NOTE | 2018-11-13 07:20 | NUR ---
NURSE NOTES: Report received from Patricia DELANEY, rounds made. Contact isolation. Patient sleeping in supine position. No distress noted on RA. LFA heplock intact, site asymptomatic. Call light in reach, bed in lowest position, will continue to monitor.
--- NOTE | 2018-11-13 07:25 | NUR ---
HAND-OFF: Report given to ELAINA Henson.
[2018-11-13 07:32] LABS: BASOPHILS % (AUTO) 1.2 % (0.0-2.0); EOSINOPHILS % (AUTO) 2.9 % (0.0-3.0); HEMOGLOBIN 8.2 G/DL (14.2-18.0); LYMPHOCYTES % (AUTO) 29.1 % (20.0-45.0); MEAN CORPUSCULAR VOLUME 85 FL (80-99); MONOCYTES % (AUTO) 6.9 % (1.0-10.0); NEUTROPHILS % (AUTO) 59.9 % (45.0-75.0); PLATELET COUNT 327 K/UL (150-450); RED BLOOD COUNT 2.82 M/UL (4.70-6.10); RED CELL DISTRIBUTION WIDTH 12.8 % (11.6-14.8); WHITE BLOOD COUNT 4.5 K/UL (4.8-10.8)
[2018-11-13 08:00] VITALS: BP 155/87
[2018-11-13] MEDS ORDERED: Docusate 100mg cap ORAL SCH (09:00)
[2018-11-13] MEDS ORDERED: Heparin 5000 units/ml inj SUBQ SCH (09:00)
--- NOTE | 2018-11-13 10:46 | Nephrology Progress Note ---
Assessment/Plan Assessment/Plan: 1. Acute encephalopathy secondary to dehydration, urinary tract infection. - resolved 2. UTI- on Abx per ID 3. Hypertension. - stable at goal 4. DVT prophylaxis with Lovenox. 5- Wound care per Gen surgery of left tibia - MRI neg for osteo 6) JESENIA on CKD- BL Cr 2016 was 1.7 this low Cr 3's may be his new baseline Cr 3.2, follow up with renal of PCP choice 1 week DC home with HH after ID places final po Abx Subjective Date patient seen: Nov 13, 2018 Time patient seen: 10:45 ROS Limited/Unobtainable: No Allergies: Coded Allergies: No Known Allergies (Unverified , 08/05/14) Subjective Patient improved and DC today Objective Last 24 Hour Vital Signs Date Time Temp Pulse Resp B/P (MAP) Pulse Ox O2 Delivery O2 Flow Rate FiO2 11/13/18 10:25 78 155/87 11/13/18 08:00 98.0 78 18 155/87 (109) 99 11/13/18 04:00 97.9 71 18 144/88 (106) 99 11/13/18 02:34 143/78 (99) 11/13/18 00:00 76 11/13/18 00:00 98.2 78 20 145/89 (107) 100 11/12/18 21:00 Room Air 11/12/18 20:00 73 11/12/18 20:00 98.5 77 20 148/81 (103) 99 11/12/18 16:00 74 11/12/18 16:00 98.5 70 20 123/64 (83) 97 11/12/18 12:00 66 11/12/18 11:58 97.5 67 18 169/77 (107) 97 Intake and Output 11/12/18 11/13/18 19:00 07:00 Intake Total 655 ml 200 ml Output Total 850 ml 250 ml Balance -195 ml -50 ml Intake Oral 480 ml 200 ml IV Total 175 ml Output Urine Total 850 ml 250 ml # Voids 5 Laboratory Tests 11/13/18 07:00: White Blood Count 4.5L, Red Blood Count 2.82L, Hemoglobin 8.2L, Hematocrit 24.0L , Mean Corpuscular Volume 85, Mean Corpuscular Hemoglobin 28.9, Mean Corpuscular Hemoglobin Concent 34.0, Red Cell Distribution Width 12.8, Platelet Count 327, Mean Platelet Volume 5.9L, Neutrophils (%) (Auto) 59.9, Lymphocytes ( %) (Auto) 29.1, Monocytes (%) (Auto) 6.9, Eosinophils (%) (Auto) 2.9, Basophils (%) (Auto) 1.2, Sodium Level 141, Potassium Level 4.5, Chloride Level 110H, Carbon Dioxide Level 21, Anion Gap 10, Blood Urea Nitrogen 40H, Creatinine 3.2H , Estimat Glomerular Filtration Rate , Glucose Level 100, Calcium Level 9.2 Height (Feet): 5 Height (Inches): 8.00 Weight (Pounds): 167 General Appearance: no apparent distress, alert EENT: normal ENT inspection Neck: normal alignment, supple Cardiovascular: normal rate, regular rhythm Respiratory/Chest: lungs clear, normal breath sounds Abdomen: normal bowel sounds, non tender Edema: no edema noted Arm (L), no edema noted Arm (R), no edema noted Leg (L), no edema noted Leg (R), no edema noted Pedal (L), no edema noted Pedal (R), no edema noted Generalized Edgar Milton MD Nov 13, 2018 10:46
--- NOTE | 2018-11-13 10:48 | Discharge Instructions ---
Discharge Instructions Discharge Instructions Services at Discharge: day care Diet: 2 GM sodium (low sodium) Resume Normal Activity?: Yes Activity: light activity Follow Up Orders Follow up 1 week with 1) Renal- call [phone] 2) PCP 3) ID For Congestive Heart Failure Reminder Report to your physician any weight gain of 5 pounds or more in one week. Edgar Milton MD Nov 13, 2018 10:48
--- NOTE | 2018-11-13 11:20 | Infectious Diseases Prog Note ---
Assessment/Plan Assessment/Plan ASSESSMENT AND PLAN: 1. e.coli uti, mrsa left leg wound culture - ? mrsa is colonizer since wound chronic and not acutely infected currently - ceftriaxone - day # 4 antibiotics - can transition to oral keflex x 5 days to tx e.coli uti - wound favor no oral antibiotic treatment for left leg wound since chronic and not currently acutely infected and bactrim nephrotoxic - d/w Dr. Torrez and agrees no need for oral antibiotics for wound, local care primary treatment - MRI without osteomyelitis, report noted - d/w Dr. Rudd and patient and RN 2. wound care per surgery, notes reviewed 3. Chronic kidney disease, elevated creatinine, acute kidney injury. 4. Anemia. 5. Hypertension. Treatment per primary. 6. Hyperlipidemia. 7. Peripheral artery disease. 8. BPH. 9. Anemia. 10. History GI bleed. 11. History of syncope. 12. Skin care protocol and surgery. 13. Weakness. 14. Continue treatment per primary consultants. 15. No known allergies. 16. Social history negative. 17. Family history positive for diabetes and hypertension. 18. MAR was noted. 19. Case was discussed with RN. 20. Continue treatment per primary consultants. 21. Notes and records were noted. 22. Orders were entered. Subjective Constitutional: Denies: fever HEENT: Denies: congestion Respiratory: Denies: shortness of breath Cardiovascular: Denies: chest pain Gastrointestinal/Abdominal: Denies: nausea, vomiting Allergies: Coded Allergies: No Known Allergies (Unverified , 08/05/14) Objective Vital Signs Last 24 Hour Vital Signs Date Time Temp Pulse Resp B/P (MAP) Pulse Ox O2 Delivery O2 Flow Rate FiO2 11/13/18 10:25 78 155/87 11/13/18 08:00 98.0 78 18 155/87 (109) 99 11/13/18 04:00 97.9 71 18 144/88 (106) 99 11/13/18 02:34 143/78 (99) 11/13/18 00:00 76 11/13/18 00:00 98.2 78 20 145/89 (107) 100 11/12/18 21:00 Room Air 11/12/18 20:00 73 11/12/18 20:00 98.5 77 20 148/81 (103) 99 11/12/18 16:00 74 11/12/18 16:00 98.5 70 20 123/64 (83) 97 11/12/18 12:00 66 11/12/18 11:58 97.5 67 18 169/77 (107) 97 Height (Feet): 5 Height (Inches): 8.00 Weight (Pounds): 167 General Appearance: no acute distress HEENT: normocephalic, atraumatic, anicteric, mucous membranes moist Respiratory/Chest: lungs clear, normal breath sounds, no respiratory distress Cardiovascular: normal rate, regular rhythm, no gallop/murmur, no JVD Abdomen: normal bowel sounds, soft, non tender, no organomegaly, non distended Genitourinary: other Extremities: no cyanosis, other - left leg wound - no drainage, stable, no odor , no cellulitis Skin: no rash 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 No underlying marrow edema to suggest osteomyelitis. High STIR signal in the surrounding subcutaneous fat consistent with edema. This may be due to cellulitis or be vasogenic in nature. No drainable abscess demonstrated. Cortical defect in the anteromedial tibia distal to the ulcer and corresponding to the radiographic cortical lucency described on recent plain radiograph. This appears to be a chronic defect likely related to prior insult. Absence of marrow edema makes Jose's abscess unlikely Nonspecific signal abnormality in the proximal tibia. This may indicate a process such as an enchondroma. No marrow abnormality to suggest active osteomyelitis. Consider bone scan to determine if metabolically active Nonspecific focal signal abnormalities in the distal tibia without evidence of marrow edema, likely residua of prior insults. Bone scan likewise may be useful to determine if any disease are metabolically active Microbiology Date/Time Source Procedure Growth Status 11/10/18 17:00 Leg Left Gram Stain - Final Complete 11/10/18 17:00 Wound Culture - Final Staphylococcus Aureus - Mrsa Diphtheroids Complete Laboratory Tests Test 11/13/18 07:00 White Blood Count 4.5 K/UL (4.8-10.8) L Red Blood Count 2.82 M/UL (4.70-6.10) L Hemoglobin 8.2 G/DL (14.2-18.0) L Hematocrit 24.0 % (42.0-52.0) L Mean Corpuscular Volume 85 FL (80-99) Mean Corpuscular Hemoglobin 28.9 PG (27.0-31.0) Mean Corpuscular Hemoglobin Concent 34.0 G/DL (32.0-36.0) Red Cell Distribution Width 12.8 % (11.6-14.8) Platelet Count 327 K/UL (150-450) Mean Platelet Volume 5.9 FL (6.5-10.1) L Neutrophils (%) (Auto) 59.9 % (45.0-75.0) Lymphocytes (%) (Auto) 29.1 % (20.0-45.0) Monocytes (%) (Auto) 6.9 % (1.0-10.0) Eosinophils (%) (Auto) 2.9 % (0.0-3.0) Basophils (%) (Auto) 1.2 % (0.0-2.0) Sodium Level 141 MMOL/L (136-145) Potassium Level 4.5 MMOL/L (3.5-5.1) Chloride Level 110 MMOL/L (98-107) H Carbon Dioxide Level 21 MMOL/L (21-32) Anion Gap 10 mmol/L (5-15) Blood Urea Nitrogen 40 mg/dL (7-18) H Creatinine 3.2 MG/DL (0.55-1.30) H Estimat Glomerular Filtration Rate mL/min (>60) Glucose Level 100 MG/DL (74-106) Calcium Level 9.2 MG/DL (8.5-10.1) Current Medications Medications (Trade) Dose Ordered Sig/Yesenia Route PRN Reason Start Time Stop Time Status Last Admin Dose Admin Acetaminophen (Tylenol) 650 mg Q4H PRN ORAL Mild Pain (Pain Scale 1-3) 11/13/18 01:30 12/09/18 21:29 Amlodipine Besylate (Norvasc) 10 mg DAILY ORAL 11/13/18 09:00 12/10/18 08:59 11/13/18 10:25 Ceftriaxone Sodium 1 gm/ Dextrose 55 ml @ 110 mls/hr Q24H IVPB 11/13/18 19:00 11/17/18 18:59 Dextrose (Dextrose 50%) 25 ml Q30M PRN IV Hypoglycemia 11/13/18 01:00 12/09/18 21:29 Dextrose (Dextrose 50%) 50 ml Q30M PRN IV Hypoglycemia 11/13/18 01:00 12/09/18 21:29 Docusate Sodium (Colace) 100 mg EVERY 12 HOURS ORAL 11/13/18 09:00 12/10/18 08:59 11/13/18 10:25 Doxycycline Hyclate 100 mg/ Dextrose 100 ml @ 100 mls/hr Q12HR IV 11/13/18 09:00 11/17/18 17:59 11/13/18 10:25 Famotidine (Pepcid) 40 mg DAILY ORAL 11/13/18 09:00 12/10/18 08:59 11/13/18 10:25 Gadobutrol (Gadavist) 7.5 mmol NOW PRN IV Radiology Procedure 11/13/18 15:15 11/15/18 15:05 Heparin Sodium (Porcine) (Heparin 5000 units/ml) 5,000 units EVERY 12 HOURS SUBQ 11/13/18 09:00 12/10/18 08:59 11/13/18 10:27 Morphine Sulfate (Morphine Sulfate) 1 mg Q4H PRN IVP For Pain 11/13/18 04:15 11/17/18 00:14 Ondansetron HCl (Zofran) 4 mg Q6H PRN IVP Nausea & Vomiting 11/13/18 03:30 12/09/18 21:29 Tamsulosin HCl (Flomax) 0.4 mg BEDTIME ORAL 11/13/18 21:00 12/10/18 20:59 Ora Boateng MD Nov 13, 2018 11:20
--- NOTE | 2018-11-13 11:22 | NUR ---
*-* INSURANCE *-* UPDATED CLINICALS AND REVIEWS HAVE BEEN FAXED TO: SNEHAL MAXWELL:DRAGAN F:[phone]
--- NOTE | 2018-11-13 11:30 | NUR ---
NURSE NOTES: LLE dressing assessed, remains CDI. No edema. Skin warm, pedal pulses palpable. Vitals stable, afebrile. Will continue to monitor.
[2018-11-13 12:00] VITALS: BP 153/94
[2018-11-13] MEDS ORDERED: Gadavist 7.5mMol/7.5ml vial IV PRN (15:15)
--- NOTE | 2018-11-13 15:37 | Surgery Progress Note ---
Surgery Progress Note Subjective Additional Comments no acute events. comfortable. no complaints. exam stable micro noted and discussed with ID Objective Last 24 Hour Vital Signs Date Time Temp Pulse Resp B/P (MAP) Pulse Ox O2 Delivery O2 Flow Rate FiO2 11/13/18 12:00 97.9 78 18 153/94 (113) 98 11/13/18 10:25 78 155/87 11/13/18 09:00 Room Air 11/13/18 08:00 98.0 78 18 155/87 (109) 99 11/13/18 04:00 97.9 71 18 144/88 (106) 99 11/13/18 02:34 143/78 (99) 11/13/18 00:00 76 11/13/18 00:00 98.2 78 20 145/89 (107) 100 11/12/18 21:00 Room Air 11/12/18 20:00 73 11/12/18 20:00 98.5 77 20 148/81 (103) 99 11/12/18 16:00 74 11/12/18 16:00 98.5 70 20 123/64 (83) 97 I&O Intake and Output 11/12/18 11/13/18 18:59 06:59 Intake Total 730 ml 200 ml Output Total 850 ml 250 ml Balance -120 ml -50 ml Intake Oral 480 ml 200 ml IV Total 250 ml Output Urine Total 850 ml 250 ml # Voids 5 Dressing: dry Wound: clean Cardiovascular: RSR Respiratory: clear Abdomen: soft, non-tender, present bowel sounds Extremities: no tenderness, no cyanosis Laboratory Tests Test 11/13/18 07:00 White Blood Count 4.5 K/UL (4.8-10.8) L Red Blood Count 2.82 M/UL (4.70-6.10) L Hemoglobin 8.2 G/DL (14.2-18.0) L Hematocrit 24.0 % (42.0-52.0) L Mean Corpuscular Volume 85 FL (80-99) Mean Corpuscular Hemoglobin 28.9 PG (27.0-31.0) Mean Corpuscular Hemoglobin Concent 34.0 G/DL (32.0-36.0) Red Cell Distribution Width 12.8 % (11.6-14.8) Platelet Count 327 K/UL (150-450) Mean Platelet Volume 5.9 FL (6.5-10.1) L Neutrophils (%) (Auto) 59.9 % (45.0-75.0) Lymphocytes (%) (Auto) 29.1 % (20.0-45.0) Monocytes (%) (Auto) 6.9 % (1.0-10.0) Eosinophils (%) (Auto) 2.9 % (0.0-3.0) Basophils (%) (Auto) 1.2 % (0.0-2.0) Sodium Level 141 MMOL/L (136-145) Potassium Level 4.5 MMOL/L (3.5-5.1) Chloride Level 110 MMOL/L (98-107) H Carbon Dioxide Level 21 MMOL/L (21-32) Anion Gap 10 mmol/L (5-15) Blood Urea Nitrogen 40 mg/dL (7-18) H Creatinine 3.2 MG/DL (0.55-1.30) H Estimat Glomerular Filtration Rate mL/min (>60) Glucose Level 100 MG/DL (74-106) Calcium Level 9.2 MG/DL (8.5-10.1) Plan Problems: (1) Urinary tract infection (2) Anemia (3) Prostate hypertrophy (4) Syncope (5) GI bleed (6) Episode of generalized weakness (7) Encounter for medication refill (8) Encounter for medication refill (9) JESENIA (acute kidney injury) (10) Hypertension (11) BPH (benign prostatic hyperplasia) (12) PAD (peripheral artery disease) (13) HLD (hyperlipidemia) (14) Open wound Assessment & Plan: Patient presented on admission with a wound to his anterior Left tibia. He stated he has had wound for almost years but is not aware of how he developed wound. use to have injury to both legs for year from work but most healed. left mid shaft tibial stage 4 Full thickness wound that is malodorous .Base of wound is necrotic down to bone which has dry necrotic layer. Small amt brown exudate noted which is mainly sebum. Darker skin tone without elevation in skin temp,fluctuance or induration noted. Dry flaky skin noted to LLE. states wound use to be much large and has contracted to this small necrotic wound now. approximately 4cm x 3cm x 1cm down to bone. chronic dry. L foot warm to touch. Pt denied fever, or pain at site of wound. LLE washed with soap and water and moisturized. Findings: There is chronic appearing angulation deformity of the midshaft tibia. There is irregularity of the lateral mid shaft tibial cortex with some evidence of periostitis there is mixed areas of cortical and medullary sclerosis and lucency along the mid tibial shaft. There is a somewhat discrete 10 mm lucency in the lateral tibial cortex with some surrounding sclerotic bone. No acute fractures. The fibula is unremarkable. No radiopaque foreign body Impression: Abnormal appearing mid shaft tibia, findings as above. Findings could all represent chronic changes. However, the irregular appearance of the lateral cortex and periostitis does raise possibility of acute osteomyelitis, given the stated clinical history of overlying ulcer. In addition, focus of lucency in the lateral cortex with surrounding sclerosis raises the possibility of a Jose's abscess, as seen in chronic osteomyelitis. Correlate with clinical and historical findings, consider MRI for better characterization if clinically indicated. MRI w/ Impression: Anteromedial soft tissue ulcer demonstrated. No underlying marrow edema to suggest osteomyelitis. High STIR signal in the surrounding subcutaneous fat consistent with edema. This may be due to cellulitis or be vasogenic in nature. No drainable abscess demonstrated. Cortical defect in the anteromedial tibia distal to the ulcer and corresponding to the radiographic cortical lucency described on recent plain radiograph. This appears to be a chronic defect likely related to prior insult. Absence of marrow edema makes Jose's abscess unlikely Nonspecific signal abnormality in the proximal tibia. This may indicate a process such as an enchondroma. No marrow abnormality to suggest active osteomyelitis. Consider bone scan to determine if metabolically active Nonspecific focal signal abnormalities in the distal tibia without evidence of marrow edema, likely residua of prior insults. Bone scan likewise may be useful to determine if any disease are metabolically active Tx Plan: Left lower extremity wound, clean with Saline. Therahoney gel applied and covered with Optifoam drsg. discussed wound care plans with patient. explained to him that given how chronic wound is it will likely not heal much further and stay as open chronic wound. I offered consideration for debridement and possible flap but patient not interested at this time. states wound does not bother him and he will be okay with it the way it is. MRI noted. no acute osteo. cont with dressing changes likely micro chronic colonization. no active infection noted. would recommend hold on treating for acute infection with abx that would potentially cause renal toxicity for chronic wound d/c planning will follow with recs thank you Dirk Torrez Nov 13, 2018 15:37
[2018-11-13 16:00] VITALS: BP 158/91
[2018-11-13] MEDS ORDERED: CEPHALEXIN500 MG ORAL (16:03)
--- NOTE | 2018-11-13 16:55 | NUR ---
NURSE NOTES: Discharge instructions and prescription reviewed with patient, verbalized understanding. All belongings, discharge papers and prescription x1 given to patient. IV heplock discontinued, no active bleeding. Patient ambulated down to lobby with staff member in stable condition. Patient discharged home at 1655 via taxi.
[2018-11-13] MEDS ORDERED: cefTRIAXone 1 GM in D5W 55 ML IVPB SCH (19:00)
[2018-11-13] MEDS ORDERED: Tamsulosin 0.4mg cap ORAL SCH (21:00)
--- NOTE | 2018-11-15 21:26 | Discharge Summary ---
Discharge Summary Discharge Summary _ DATE OF ADMISSION: 11/09/2018 DATE OF DISCHARGE: [] 11/13/2018 DISCHARGED BY: dr. Yanez REASON FOR ADMISSION: [] 83 years old male with past medical history of hypertension, BPH, constipation, was brought by paramedics after complaining of progressive weakness, not feeling well and being confused. Patient denied nausea, vomiting , or diarrhea. No chest pain. No shortness of breath. Upon evaluation emergency room blood pressure was elevated 175/81. Laboratory work-up revealed no leukocytosis hemoglobin 9.6 hematocrit 28.4 urinalysis revealed evidence of urinary tract infection. Stable electrolytes. BUN 38 creatinine 3.5. Glucose 104. Lactic acid 0.7. Troponin negative. Ammonia 23. TSH was normal limits. Serum alcohol negative chest x-ray revealed no acute cardiopulmonary pathology. CT of the head demonstrated chronic and age-related changes. Negative for acute intracranial bleeding or mass-effect. Patient subsequently admitted for further management CONSULTANTS: movie theater manager neurologist pulmonary ID specialist GI specialist beef farmer dr. Yanez training director/oncologist surgery psychiatrist Dr. Torrez HOSPITAL COURSE: [] Patient admitted to medical surgical floor and started on IV fluids and empiric antibiotics. Renal ultrasound revealed bilateral echogenic kidney consistent with chronic medical renal disease. Negative for hydronephrosis. Renal parameters electrolytes were closely monitored. Electrolytes corrected as needed and nephrotoxins were avoided. Prior to discharge creatinine from 3.5 down to 3.2 Blood cultures were negative. Urine culture revealed E. coli. Wound culture revealed MRSA. Antibiotics provided as per ID specialist recommendation.. MRSA and left glucose left leg was colonizer since wound was chronic and not acutely infected. X-ray right tibia and fibula reveal no evidence of acute fracture however findings raise possibility of acute osteomyelitis and patient subsequently undergone MRI of the right tibia and fibula. MRI of the right tibia-fibula revealed no evidence to suggest osteomyelitis. Patient was on IV antibiotics for UTI and transition to oral antibiotics to complete the course as outpatient. Surgeon follow. Wound care provided as per surgical recommendation. Hemoglobin hematocrit were closely monitored with goal to keep hemoglobin above 7. DVT and GI prophylaxis provided. Blood pressure was managed with current medication regimen and stabilized. Supportive care provided. Home health was arranged for wound care. Patient was stable for discharge home with home health services to follow. FINAL DIAGNOSES: Acute encephalopathy secondary to dehydration and urinary tract infection 1. [] Acute kidney injury on chronic kidney disease E. coli urinary tract infection Anemia Hypertension Hyperlipidemia BPH DISCHARGE MEDICATIONS: See Medication Reconciliation list. DISCHARGE INSTRUCTIONS: [] Patient was discharged home with home health services. Follow up with primary care provider or beef farmer in one week. I have been assigned to dictate discharge summary for this account. I was not involved in the patient's management. Bethanie Isaac NP Nov 15, 2018 21:26
--- NOTE | 2018-11-16 14:58 | NUR ---
*-* INSURANCE *-* DISCHARGE SUMMARY HAVE BEEN FAXED TO: SNEHAL MAXWELL:DRAGAN F:[phone]
== END 2018-11-13 17:07 | disposition home or self-care (01) | DRG 463 ==
LOC: EDBD 18:06 → EMR 18:46 → 2E 20:44 → EDBEDREQ 21:10 → 4E 11-13 01:14
DX: N39.0 Urinary tract infection, site not specified (principal); N17.9 Acute kidney failure, unspecified; G93.40 Encephalopathy, unspecified; S81.802A Unspecified open wound, left lower leg, initial encounter; D64.9 Anemia, unspecified; B95.62 Methicillin resistant Staphylococcus aureus infection as the cause of diseases classified elsewhere; X58.XXXA Exposure to other specified factors, initial encounter; E86.0 Dehydration; N40.0 Benign prostatic hyperplasia without lower urinary tract symptoms; I12.9 Hypertensive chronic kidney disease with stage 1 through stage 4 chronic kidney disease, or unspecified chronic kidney disease; N18.9 Chronic kidney disease, unspecified; B96.20 Unspecified Escherichia coli [E. coli] as the cause of diseases classified elsewhere; R55 Syncope and collapse; I73.9 Peripheral vascular disease, unspecified; K92.2 Gastrointestinal hemorrhage, unspecified; E78.5 Hyperlipidemia, unspecified
CPT/HCPCS: 36415; 70450; 71045; 76770; 80048; 80053; 80329; 81003; 82140; 82550; 82553; 82962; 83605; 84443; 84484; 85025; 85651; 87040; 87070; 87086; 87181; 87205; 93005; 96365; 99285; J3490

== ENCOUNTER 2020-02-25 17:14 | Inpatient (IN) | payer MEDICARE, MEDICAID ==
[~2020-02-25] VITALS: Ht 170.2 cm; Wt 66.3 kg
[~2020-02-25 17:14] MED LIST changes: +CEPHALEXIN500 MG ORAL
[2020-02-25] MEDS ORDERED: MELOXICAM7.5 MG PO (17:33)
[2020-02-25] MEDS ORDERED: SIMVASTATIN20 MG ORAL (17:33)
[2020-02-25] MEDS ORDERED: ZOFRAN4 M3 ORAL (17:33)
[2020-02-25] MEDS ORDERED: ATORVASTATIN CA20 MG ORAL (17:33)
[2020-02-25] MEDS ORDERED: BENAZEPRIL HCL10 MG ORAL (17:33)
[2020-02-25] MEDS ORDERED: FLOMAX0.4 MG ORAL (17:33)
[2020-02-25] MEDS ORDERED: HEPARIN SO5000 UNIT2 SUBQ (17:33)
[2020-02-25] MEDS ORDERED: PRINIVIL10 MG ORAL (17:33)
[2020-02-25] MEDS ORDERED: GABAPENTIN100 MG ORAL (17:33)
[2020-02-25] MEDS ORDERED: ATENOLOL25 MG ORAL (17:33)
--- NOTE | 2020-02-25 17:40 | NUR ---
ED Nurse Note:pt. was BIBA from home with infected left camacho wound with maggets, pt. is A/Ox4 ambulatory with cane VSS, blood was sent to labs
[2020-02-25] MEDS ORDERED: ceFAZolin sod 1 GM in NS 55 ML IVPB ONE (17:45)
[2020-02-25] MEDS ORDERED: Sodium Bicarbonate 50ml Carp IVPB ONE (17:45)
[2020-02-25] MEDS ORDERED: NS Irrig 1000ml 1,000 ML IRRIG ONE (17:45)
[2020-02-25] MEDS ORDERED: Vancomycin 1 GM in NS 275 ML IVPB ONE (17:45)
[2020-02-25] MEDS ORDERED: Hydrogen Peroxide 473ml Bottle TOPIC ONE (17:45)
[2020-02-25 17:53] VITALS: BP 106/56
--- NOTE | 2020-02-25 18:07 | Emergency Room Report ---
History of Present Illness General Chief Complaint: Skin Rash/Abscess Source: Patient, Medical Record, EMS Present Illness HPI Disclaimer: Please note that this report is being documented using [employer] technology. This can lead to erroneous entry secondary to incorrect interpretation by the dictating instrument. HPI: 84-year-old male history of chronic kidney disease, hypertension, chronic left lower extremity wound presents for worsening lower extremity wound. Apparently patient was visited by a "nurse" today and they noted his wound appeared worse with maggots, so EMS was called and patient transferred to the ER. He denies any pain or fever. He states he has had the wound for many years. There is a surgical scar over the wound but he cannot recall what surgery he had. No fevers. Walks with a cane. Allergies: Coded Allergies: No Known Allergies (Unverified , 08/05/14) COVID-19 Screening Contact w/high risk pt: No Experienced COVID-19 symptoms?: No COVID-19 Testing performed PERSONAL CARER: No Patient History Reviewed Nursing Documentation: PMH: Agreed; PSxH: Agreed Nursing Documentation-PMH Hx Hypertension: Yes Hx Cancer: No Hx Gastrointestinal Problems: No Hx Neurological Problems: Yes - POLIO Review of Systems All Other Systems: negative except mentioned in HPI Physical Exam Vital Signs Date Time Temp Pulse Resp B/P (MAP) Pulse Ox O2 Delivery O2 Flow Rate FiO2 02/25/20 17:16 98.4 77 20 106/56 (73) 99 Room Air Sp02 EP Interpretation: reviewed, normal General Appearance: well appearing, no apparent distress Head: normocephalic, atraumatic Eyes: bilateral eye PERRL, bilateral eye EOMI ENT: hearing grossly normal, moist mucus membranes Neck: full range of motion, supple Respiratory: lungs clear, normal breath sounds, no rhonchi, no respiratory distress, no retraction, no wheezing Cardiovascular #1: normal peripheral pulses, regular rate, rhythm, no murmur Cardiovascular #2: 2+ dorsalis pedis (R), 2+ dorsalis pedis (L) Gastrointestinal: non tender, soft, non-distended, no guarding Neurologic: alert, oriented x3, no focal defects Skin: normal color, warm/dry, other - Wound noted to left lower extremity approximately 3 x 2 cm, with purulent drainage and live maggots noted. Patient did have a previous surgical scar over the area. Medical Decision Making Diagnostic Impression: Primary Impression: Wound infection ER Course MDM: Differential included but not limited to infected chronic wound, cellulitis, less likely necrotizing fasciitis Clinical course-basic laboratory studies were sent. I spoke with pharmacy who recommended a solution of bicarbonate, hydrogen peroxide and normal saline to cleanse the wound. This was ordered. As patient has poor follow-up, poor insight into his disease with active wound infection I do believe he would benefit from admission for wound care and IV antibiotics. IV antibiotics were given in the ER. White count normal. No laboratory studies showed a normal white count. Creatinine 2.5, Labs - Laboratory Tests Test 02/25/20 17:50 White Blood Count 4.0 K/UL (4.8-10.8) L Red Blood Count 4.44 M/UL (4.70-6.10) L Hemoglobin 13.5 G/DL (14.2-18.0) L Hematocrit 44.9 % (42.0-52.0) Mean Corpuscular Volume 101 FL (80-99) H Mean Corpuscular Hemoglobin 30.5 PG (27.0-31.0) Mean Corpuscular Hemoglobin Concent 30.1 G/DL (32.0-36.0) L Red Cell Distribution Width 16.2 % (11.6-14.8) H Platelet Count 184 K/UL (150-450) Mean Platelet Volume 7.8 FL (6.5-10.1) Neutrophils (%) (Auto) 49.6 % (45.0-75.0) Lymphocytes (%) (Auto) 38.2 % (20.0-45.0) Monocytes (%) (Auto) 8.0 % (1.0-10.0) Eosinophils (%) (Auto) 2.8 % (0.0-3.0) Basophils (%) (Auto) 1.5 % (0.0-2.0) Prothrombin Time 10.7 SEC (9.30-11.50) Prothrombin Time INR 1.0 (0.9-1.1) Activated Partial Thromboplast Time 26 SEC (23-33) Sodium Level 145 MMOL/L (136-145) Potassium Level 3.4 MMOL/L (3.5-5.1) L Chloride Level 106 MMOL/L (98-107) Carbon Dioxide Level 33 MMOL/L (21-32) H Anion Gap 7 mmol/L (5-15) Blood Urea Nitrogen 12 mg/dL (7-18) Creatinine 2.5 MG/DL (0.55-1.30) H Estimated Glomerular Filtration Rate 30.1 mL/min (>60) Glucose Level 93 MG/DL (74-106) Calcium Level 9.3 MG/DL (8.5-10.1) Total Bilirubin 0.2 MG/DL (0.2-1.0) Aspartate Amino Transferase (AST) 16 U/L (15-37) Alanine Aminotransferase (ALT) 15 U/L (12-78) Alkaline Phosphatase 167 U/L (46-116) H Total Protein 7.4 G/DL (6.4-8.2) Albumin 3.5 G/DL (3.4-5.0) Globulin 3.9 g/dL Albumin/Globulin Ratio 0.9 (1.0-2.7) L Last Vital Signs Date Time Temp Pulse Resp B/P (MAP) Pulse Ox O2 Delivery O2 Flow Rate FiO2 02/25/20 17:53 98.4 80 20 106/56 99 Room Air Disposition: ADMITTED INPATIENT Condition: Serious Referrals: NOT CHOSEN IPA/,REFERRING (PCP) Josue Gonzalez M.D. Feb 25, 2020 18:07
--- NOTE | 2020-02-25 18:35 | NUR ---
ED Nurse Note:washed left leg wound with peroxide/bicarb solution, then dry dressing applied, given iv antibiotics. pt. has old dialysis shunts on bilateral upper arms and new permacath on right chest- pt. had dialysis today
[2020-02-25 18:47] LABS: BASOPHILS % (AUTO) 1.5 % (0.0-2.0); EOSINOPHILS % (AUTO) 2.8 % (0.0-3.0); HEMATOCRIT 44.9 % (42.0-52.0); HEMOGLOBIN 13.5 G/DL (14.2-18.0); LYMPHOCYTES % (AUTO) 38.2 % (20.0-45.0); MEAN CORPUSCULAR VOLUME 101 FL (80-99); NEUTROPHILS % (AUTO) 49.6 % (45.0-75.0); PLATELET COUNT 184 K/UL (150-450); RED BLOOD COUNT 4.44 M/UL (4.70-6.10); RED CELL DISTRIBUTION WIDTH 16.2 % (11.6-14.8)
[2020-02-25 18:57] LABS: CALCIUM 9.3 MG/DL (8.5-10.1); CREATININE 2.5 MG/DL (0.55-1.30); POTASSIUM 3.4 MMOL/L (3.5-5.1)
[2020-02-25 19:02] LABS: ALBUMIN 3.5 G/DL (3.4-5.0); ALBUMIN/GLOBULIN RATIO 0.9 (1.0-2.7); BILIRUBIN,TOTAL 0.2 MG/DL (0.2-1.0)
--- NOTE | 2020-02-25 19:05 | NUR ---
ED Nurse Note: Report received from ELAINA Layton.
[2020-02-25 19:30] VITALS: BP 113/73
--- NOTE | 2020-02-25 19:30 | NUR ---
ED Nurse Note: Patient is aaox4, breathing is normal and unlabored. He is resting in bed with safety measures in place. Patient is aware of hospital admissin and agrees with plan of care. NAD noted. Will cont. to monitor. See vitals flow sheet.
--- NOTE | 2020-02-25 20:10 | NUR ---
ED Nurse Note: Patient provided with sandwhich and juice.
--- NOTE | 2020-02-25 20:22 | History & Physical ---
History and Physical History & Physicial History and Physical HPI Patient is an 84-year-old male history of previous polio,chronic kidney disease, hypertension, chronic left lower extremity wound presents for worsening lower extremity wound. Patient was visited by a home nursing,wound noted to be worse with maggots, patient denies any pain or fever. He states he has had the wound for many years. Previous surgery in the area. Normally walks with a cane. Allergies: No Known Allergies PMH: previous polio,chronic kidney disease, hypertension, chronic left lower extremity wound presents for worsening lower extremity wound PSH: left lower extremity surgery All Other Systems: negative except mentioned in HPI Physical Exam Vital Signs Noted Date Time Temp Pulse Resp B/P (MAP) Pulse Ox O2 Delivery O2 Flow Rate FiO2 02/25/20 17:16 98.4 77 20 106/56 (73) 99 Room Air General Appearance: well appearing, no apparent distress Head: normocephalic, atraumatic Eyes: bilateral eye PERRL, bilateral eye EOMI ENT: hearing grossly normal, moist mucus membranes Neck: full range of motion, supple Respiratory: lungs clear, normal breath sounds, no rhonchi, no respiratory distress, no retraction, no wheezing Cardiovascular: HS1, [id number], ormal peripheral pulses, regular rate, rhythm, no murmur Gastrointestinal: non tender, soft, non-distended, no guarding Neurologic: alert, oriented x3, no focal defects Skin: normal color, warm/dry, other - Wound noted to left lower extremity 3 x 2 cm, with purulent drainage. Previous surgical scar over the area. Impression: Wound infection Chronic left lower extremity wound Previous polio Chronic kidney disease Hypertension Plan Continue IV AB Wound nurse Renal Consult Surgery consult PUBLIC SAFETY DISPATCHER Medications PPX Monitor labs Laboratory Tests noted Test 02/25/20 17:50 White Blood Count 4.0 K/UL (4.8-10.8) L Red Blood Count 4.44 M/UL (4.70-6.10) L Hemoglobin 13.5 G/DL (14.2-18.0) L Hematocrit 44.9 % (42.0-52.0) Mean Corpuscular Volume 101 FL (80-99) H Mean Corpuscular Hemoglobin 30.5 PG (27.0-31.0) Mean Corpuscular Hemoglobin Concent 30.1 G/DL (32.0-36.0) L Red Cell Distribution Width 16.2 % (11.6-14.8) H Platelet Count 184 K/UL (150-450) Mean Platelet Volume 7.8 FL (6.5-10.1) Neutrophils (%) (Auto) 49.6 % (45.0-75.0) Lymphocytes (%) (Auto) 38.2 % (20.0-45.0) Monocytes (%) (Auto) 8.0 % (1.0-10.0) Eosinophils (%) (Auto) 2.8 % (0.0-3.0) Basophils (%) (Auto) 1.5 % (0.0-2.0) Prothrombin Time 10.7 SEC (9.30-11.50) Prothrombin Time INR 1.0 (0.9-1.1) Activated Partial Thromboplast Time 26 SEC (23-33) Sodium Level 145 MMOL/L (136-145) Potassium Level 3.4 MMOL/L (3.5-5.1) L Chloride Level 106 MMOL/L (98-107) Carbon Dioxide Level 33 MMOL/L (21-32) H Anion Gap 7 mmol/L (5-15) Blood Urea Nitrogen 12 mg/dL (7-18) Creatinine 2.5 MG/DL (0.55-1.30) H Estimated Glomerular Filtration Rate 30.1 mL/min (>60) Glucose Level 93 MG/DL (74-106) Calcium Level 9.3 MG/DL (8.5-10.1) Total Bilirubin 0.2 MG/DL (0.2-1.0) Aspartate Amino Transferase (AST) 16 U/L (15-37) Alanine Aminotransferase (ALT) 15 U/L (12-78) Alkaline Phosphatase 167 U/L (46-116) H Total Protein 7.4 G/DL (6.4-8.2) Albumin 3.5 G/DL (3.4-5.0) Globulin 3.9 g/dL Albumin/Globulin Ratio 0.9 (1.0-2.7) Enrrique Reynoso MD Feb 25, 2020 20:22
--- NOTE | 2020-02-25 21:20 | NUR ---
ED Nurse Note: Patient refused cre/vre/mrsa swabs.
--- NOTE | 2020-02-25 21:35 | NUR ---
ED Nurse Note: Report given to ELAINA Alfaro.
--- NOTE | 2020-02-25 21:40 | NUR ---
CHARGE NURSE NOTE: Report received from ER nurse ELAINA Stone. PT transferred from ER in stable condition.Pt is admitted with left lower extremity wound. Vitals stable. Pt is awake alert and ambulatory with a cane.Pt is oriented to the room. Report given to Salvatore primary RN to complete the admission process.
--- NOTE | 2020-02-25 21:40 | NUR ---
ED Nurse Note: Patient is stable for transfer to [facility] unit at this time. He is aaox4, VSS, breathing is normal. Patient taken to unit via wheelchair by tech. IV is patent and intact. Patient took all belongings wit him. Pt own medications are locked in ER med room box.
--- NOTE | 2020-02-25 22:11 | NUR ---
NURSE NOTES: Received patient from ER. The patient is alert and oriented x4 and does not seem to be in any distress at this time.He is RA with Resp even and unlabored .The patient was admitted due to Infected left lower leg wound. He is status dialysis and has a Right upper chest PermCath. The dressing is intact and no evidence of bleeding was noted.The patient was also noted with Right upper arm old dialysis access shunt that is not working anymore. Patient has a Left.FA 22g that is patent and asymptomatic. He can ambulate with his cane to the bathroom with minimal help needed. The bed in low and locked level, call light within easy reach and bed siderails up x2. Will continue to monitor as indicated
--- NOTE | 2020-02-25 22:15 | NUR ---
NURSE NOTES: Received admission order from Dr. Ahmadi, All orders executed as indicated. The patient is alert and stable. Will continue to monitor as indicated
[2020-02-25] MEDS ORDERED: Ipratropium 0.02% Inh Soln 2.5ml UD HHN PRN (22:45)
[2020-02-26] VITALS: BP 132/76
[2020-02-26 04:00] VITALS: BP 141/76
--- NOTE | 2020-02-26 06:30 | NUR ---
NURSE NOTES: Collected the culture for MRSA-Nares, VRE-Rectum, Wound culture and UA as indicated.
[2020-02-26] MEDS: Heparin 5000 units/ml inj SUBQ SCH ×3 (06:39→21:00)
[2020-02-26 06:53] LABS: BASOPHILS % (AUTO) 0.8 % (0.0-2.0); EOSINOPHILS % (AUTO) 2.2 % (0.0-3.0); HEMATOCRIT 38.6 % (42.0-52.0); HEMOGLOBIN 12.4 G/DL (14.2-18.0); LYMPHOCYTES % (AUTO) 35.9 % (20.0-45.0); MEAN CORPUSCULAR VOLUME 95 FL (80-99); MONOCYTES % (AUTO) 7.9 % (1.0-10.0); NEUTROPHILS % (AUTO) 53.1 % (45.0-75.0); PLATELET COUNT 174 K/UL (150-450); RED BLOOD COUNT 4.08 M/UL (4.70-6.10); RED CELL DISTRIBUTION WIDTH 15.3 % (11.6-14.8); WHITE BLOOD COUNT 4.4 K/UL (4.8-10.8)
[2020-02-26 06:58] LABS: CALCIUM 8.6 MG/DL (8.5-10.1); CREATININE 2.9 MG/DL (0.55-1.30); POTASSIUM 3.6 MMOL/L (3.5-5.1)
[2020-02-26 07:55] LABS: APPEARANCE,URINE CLEAR; COLOR,URINE YELLOW
[2020-02-26 07:56] LABS: BILIRUBIN, URINE NEGATIVE (NEGATIVE); GLUCOSE, URINE (UA) NEGATIVE (NEGATIVE); KETONES,URINE NEGATIVE (NEGATIVE); LEUKOCYTE ESTERASE ,URINE NEGATIVE (NEGATIVE); NITRITE,URINE NEGATIVE (NEGATIVE); PH,URINE 8 (4.5-8.0); PROTEIN,URINE 3+ (NEGATIVE); UROBILINOGEN,URINE NORMAL MG/DL (0.0-1.0)
--- NOTE | 2020-02-26 07:57 | NUR ---
HAND-OFF: Report given to Tala DELANEY.
[2020-02-26 08:00] VITALS: BP 129/74
--- NOTE | 2020-02-26 08:00 | NUR ---
NURSE NOTES: Patient awake and alert and oriented.respirations unlabored.Patient has saline lock in the left arm intact and patent.noted patient has a right chest dialysis permacatheter intact.Patient stated he received dialysis on 02/24 Noted left leg lower dressing intact .Patient sitting up in bed and eating breakfast.Bed alarm is on,call light within reach.
[2020-02-26] MEDS: Pantoprazole Inj IVP SCH (08:40)
[2020-02-26] MEDS: Docusate 100mg cap ORAL SCH ×2 (08:40→17:36)
[2020-02-26] MEDS: Tamsulosin 0.4mg cap ORAL SCH (08:41)
[2020-02-26] MEDS: Benazepril 10mg tab ORAL SCH (08:42)
[2020-02-26] MEDS: Atenolol 25mg tab ORAL SCH (08:43)
[2020-02-26] MEDS: Lisinopril 10mg tab ORAL SCH (08:44)
[2020-02-26] MEDS: ceFAZolin sod 1 GM in D5W 55 ML IVPB SCH ×2 (09:02→20:53)
--- NOTE | 2020-02-26 09:18 | Consultation ---
History of Present Illness General Date patient seen: Feb 26, 2020 Reason for Hospitalization: Skin Rash/Abscess Present Illness HPI 84-year-old male with past medical history of chronic kidney disease, hypertension, chronic left lower extremity wound presents for worsening lower extremity wound.states his home health nurse came and noted his wound appeared worse with maggots, so EMS was called and patient transferred to the ER at [facility] for evaluation. admitted for care. surgery called to evaluate and assist with care. He denies any pain or fever. He states he has had the wound for many years. There is a surgical scar over the wound but he cannot recall what surgery he had. No fevers. Walks with a cane. Allergies: Coded Allergies: No Known Allergies (Unverified , 08/05/14) COVID-19 Screening Contact w/high risk pt: No Experienced COVID-19 symptoms?: No Medication History Scheduled Amlodipine Besylate* (Amlodipine Besylate*), 10 MG ORAL DAILY, (Reported) Atenolol* (Tenormin*), 25 MG ORAL DAILY, (Reported) Atorvastatin Calcium* (Atorvastatin Calcium*), 10 MG ORAL BEDTIME, (Reported) Benazepril Hcl* (Benazepril Hcl*), 10 MG ORAL DAILY, (Reported) Cephalexin* (Keflex*), 500 MG ORAL TWICE A DAY, (Reported) Docusate Sodium* (Docusate Sodium*), 100 MG ORAL BID, (Reported) Gabapentin* (Gabapentin*), 100 MG ORAL QHS, (Reported) Heparin Sod (Porcine) (Heparin Sodium*), 5,000 UNITS SUBQ EVERY 8 HOURS, (Reported) Lisinopril* (Prinivil*), 10 MG ORAL DAILY, (Reported) Meloxicam* (Meloxicam*), 7.5 MG PO DAILY, (Reported) Simvastatin (Zocor), 20 MG ORAL BEDTIME, (Reported) Tamsulosin HCl (Flomax), 0.4 MG ORAL DAILY, (Reported) Tamsulosin Hcl (Tamsulosin Hcl*), 0.4 MG ORAL BEDTIME Scheduled PRN Ondansetron* (Zofran*), 4 MG ORAL Q6H PRN for Nausea & Vomiting, (Reported) Patient History History Provided By: Patient, Medical Record, PMD Healthcare decision maker N Resuscitation status Advanced Directive on File Past Medical/Surgical History Past Medical/Surgical History: (1) Open wound (2) Wound infection (3) JESENIA (acute kidney injury) (4) Hypertension (5) BPH (benign prostatic hyperplasia) (6) PAD (peripheral artery disease) (7) HLD (hyperlipidemia) (8) Anemia (9) Syncope (10) GI bleed (11) Episode of generalized weakness (12) Encounter for medication refill (13) Encounter for medication refill Review of Systems Review of Symptoms General ROS: no weight loss or fever Psychological ROS: no depression or mood changes, no memory loss Ophthalmic ROS: no visual changes or eye irritation ENT ROS: no nasal congestion, hearing loss, dizziness Allergy and Immunology ROS: no allergic symptoms or urticaria Hematological and Lymphatic ROS: no swollen glands, unusual bleeding or bruising Endocrine ROS: no polyuria, polydipsia, weight changes, temperature intolerance Respiratory ROS: no cough, shortness of breath, or wheezing Cardiovascular ROS: no chest pain or dyspnea on exertion Gastrointestinal ROS: denies abdominal pain, bright red blood in stool. Musculoskeletal ROS: no myalgias or arthralgias Neurological ROS: no TIA or stroke symptoms Dermatological ROS: no new or changing skin lesions, rashes or pruritis Physical Exam Physical Exam General appearance: alert, cooperative, no distress, appears stated age Head: Normocephalic, without obvious abnormality, atraumatic Eyes: conjunctivae/corneas clear. PERRL, EOM's intact. Fundi benign Throat: Lips, mucosa, and tongue normal. Teeth and gums normal Neck: supple, symmetrical, trachea midline, no adenopathy, thyroid: not enlarged, symmetric, no tenderness/mass/nodules, no carotid bruit and no JVD Lungs: clear to auscultation bilaterally Heart: regular rate and rhythm, S1, S2 normal, no murmur, click, rub or gallop Abdomen: soft, non-tender. Bowel sounds normal. No masses, no organomegaly Extremities: extremities see below Pulses: 2+ and symmetric Skin: Skin color, texture, turgor normal. No rashes or lesions Neurologic: Grossly normal Last 24 Hour Vital Signs Date Time Temp Pulse Resp B/P (MAP) Pulse Ox O2 Delivery O2 Flow Rate FiO2 02/26/20 08:44 134/70 02/26/20 08:43 72 134/70 02/26/20 08:43 72 134/70 02/26/20 08:42 134/70 02/26/20 04:00 98.1 78 18 141/76 (97) 97 02/26/20 00:00 98.0 71 18 132/76 (94) 98 02/25/20 22:07 Room Air 02/25/20 21:40 98.3 69 20 126/57 100 Room Air 02/25/20 21:40 69 20 Room Air 02/25/20 19:30 98.4 61 22 113/73 100 Room Air 02/25/20 17:53 98.4 80 20 106/56 99 Room Air 02/25/20 17:16 98.4 77 20 106/56 (73) 99 Room Air Intake and Output 02/25/20 02/26/20 19:00 07:00 Intake Total 100 ml 210 ml Output Total 50 ml Balance 100 ml 160 ml Intake Oral 100 ml 210 ml Output Urine Total 50 ml # Voids 1 Laboratory Tests Test 02/25/20 17:50 02/26/20 05:45 02/26/20 06:00 White Blood Count 4.0 K/UL (4.8-10.8) L 4.4 K/UL (4.8-10.8) L Red Blood Count 4.44 M/UL (4.70-6.10) L 4.08 M/UL (4.70-6.10) L Hemoglobin 13.5 G/DL (14.2-18.0) L 12.4 G/DL (14.2-18.0) L Hematocrit 44.9 % (42.0-52.0) 38.6 % (42.0-52.0) L Mean Corpuscular Volume 101 FL (80-99) H 95 FL (80-99) Mean Corpuscular Hemoglobin 30.5 PG (27.0-31.0) 30.4 PG (27.0-31.0) Mean Corpuscular Hemoglobin Concent 30.1 G/DL (32.0-36.0) L 32.1 G/DL (32.0-36.0) Red Cell Distribution Width 16.2 % (11.6-14.8) H 15.3 % (11.6-14.8) H Platelet Count 184 K/UL (150-450) 174 K/UL (150-450) Mean Platelet Volume 7.8 FL (6.5-10.1) 7.0 FL (6.5-10.1) Neutrophils (%) (Auto) 49.6 % (45.0-75.0) 53.1 % (45.0-75.0) Lymphocytes (%) (Auto) 38.2 % (20.0-45.0) 35.9 % (20.0-45.0) Monocytes (%) (Auto) 8.0 % (1.0-10.0) 7.9 % (1.0-10.0) Eosinophils (%) (Auto) 2.8 % (0.0-3.0) 2.2 % (0.0-3.0) Basophils (%) (Auto) 1.5 % (0.0-2.0) 0.8 % (0.0-2.0) Prothrombin Time 10.7 SEC (9.30-11.50) Prothromb Time International Ratio 1.0 (0.9-1.1) Activated Partial Thromboplast Time 26 SEC (23-33) Sodium Level 145 MMOL/L (136-145) 144 MMOL/L (136-145) Potassium Level 3.4 MMOL/L (3.5-5.1) L 3.6 MMOL/L (3.5-5.1) Chloride Level 106 MMOL/L (98-107) 109 MMOL/L (98-107) H Carbon Dioxide Level 33 MMOL/L (21-32) H 31 MMOL/L (21-32) Anion Gap 7 mmol/L (5-15) 4 mmol/L (5-15) L Blood Urea Nitrogen 12 mg/dL (7-18) 19 mg/dL (7-18) H Creatinine 2.5 MG/DL (0.55-1.30) H 2.9 MG/DL (0.55-1.30) H Estimat Glomerular Filtration Rate 30.1 mL/min (>60) 25.3 mL/min (>60) Glucose Level 93 MG/DL (74-106) 84 MG/DL (74-106) Calcium Level 9.3 MG/DL (8.5-10.1) 8.6 MG/DL (8.5-10.1) Total Bilirubin 0.2 MG/DL (0.2-1.0) Aspartate Amino Transf (AST/SGOT) 16 U/L (15-37) Alanine Aminotransferase (ALT/SGPT) 15 U/L (12-78) Alkaline Phosphatase 167 U/L (46-116) H Total Protein 7.4 G/DL (6.4-8.2) Albumin 3.5 G/DL (3.4-5.0) Globulin 3.9 g/dL Albumin/Globulin Ratio 0.9 (1.0-2.7) L Prealbumin Pending Zinc Level Pending Urine Color Yellow Urine Appearance Clear Urine pH 8 (4.5-8.0) Urine Specific [place] 1.010 (1.005-1.035) Urine Protein 3+ (NEGATIVE) H Urine Glucose (UA) Negative (NEGATIVE) Urine Ketones Negative (NEGATIVE) Urine Blood 1+ (NEGATIVE) H Urine Nitrite Negative (NEGATIVE) Urine Bilirubin Negative (NEGATIVE) Urine Urobilinogen Normal MG/DL (0.0-1.0) Urine Leukocyte Esterase Negative (NEGATIVE) Urine RBC 0-2 /HPF (0 - 0) H Urine WBC 0 /HPF (0 - 0) Urine Squamous Epithelial Cells None /LPF (NONE/OCC) Urine Bacteria None /HPF (NONE) Height (Feet): 5 Height (Inches): 7.00 Weight (Pounds): 141 Medications Current Medications Medications (Trade) Dose Ordered Sig/Yesenia Route PRN Reason Start Time Stop Time Status Last Admin Dose Admin Acetaminophen (Tylenol) 650 mg Q6H PRN ORAL For Pain 02/25/20 23:30 03/26/20 23:29 Amlodipine Besylate (Norvasc) 10 mg DAILY ORAL 02/26/20 09:00 03/27/20 08:59 02/26/20 08:43 Atenolol (Tenormin) 25 mg DAILY ORAL 02/26/20 09:00 03/27/20 08:59 02/26/20 08:43 Atorvastatin Calcium (Lipitor) 10 mg BEDTIME ORAL 02/26/20 21:00 05/26/20 20:59 Benazepril HCl (Lotensin) 10 mg DAILY ORAL 02/26/20 09:00 03/27/20 08:59 02/26/20 08:42 Cefazolin Sodium 1 gm/Dextrose 55 ml @ 110 mls/hr EVERY 12 HOURS IVPB 02/26/20 09:00 03/04/20 08:59 02/26/20 09:02 Docusate Sodium (Colace) 100 mg BID ORAL 02/26/20 09:00 03/27/20 08:59 02/26/20 08:40 Gabapentin (Neurontin) 100 mg QHS ORAL 02/26/20 21:00 03/27/20 20:59 Heparin Sodium (Porcine) (Heparin 5000 units/ml) 5,000 units EVERY 8 HOURS SUBQ 02/26/20 06:00 04/11/20 05:59 02/26/20 06:39 Ipratropium [place] (Atrovent) 500 mcg Q6HR PRN HHN Shortness of Breath 02/25/20 22:45 03/01/20 22:44 Lisinopril (ZestriL) 10 mg DAILY ORAL 02/26/20 09:00 03/27/20 08:59 02/26/20 08:44 Meloxicam (Mobic) 7.5 mg DAILY ORAL 02/26/20 09:00 03/27/20 08:59 02/26/20 08:48 Pantoprazole (Protonix) 40 mg DAILY IVP 02/26/20 09:00 03/27/20 08:59 02/26/20 08:40 Tamsulosin HCl (Flomax) 0.4 mg DAILY ORAL 02/26/20 09:00 03/27/20 08:59 02/26/20 08:41 Vancomycin HCl (Vanco pharmacy to dose) 1 ea DAILY PRN MISC Per rx protocol 02/25/20 22:45 03/26/20 22:44 Vancomycin HCl 500 mg/Dextrose 110 ml @ 110 mls/hr Q24H IVPB 02/26/20 18:00 03/02/20 17:59 Assessment/Plan Problem List: (1) Open wound ICD Codes: T14.8XXA - Other injury of unspecified body region, initial encounter SNOMED: 346536247 (2) Wound infection Assessment & Plan: Patient presented on admission with a wound to his anterior Left tibia. He stated he has had wound for almost years but is not aware of how he developed wound. use to have injury to both legs for year from work but most healed. left mid shaft tibial stage 4 Full thickness wound that is malodorous .Base of wound is necrotic down to bone which has moist eschar necrotic layer. Small amt brown exudate. Darker skin tone without elevation in skin temp,fluctuance or induration noted. Dry flaky skin noted to LLE. states wound use to be much large and has contracted to this small necrotic wound now. approximately 4cm x 3cm x 1cm down to bone. chronic dry. surgical prolene suture noted as recent intervention must have been done outpatient elsewhere L foot warm to touch. Pt denied fever, or pain at site of wound. LLE washed with soap and water and moisturized. Wash left leg wound daily with NS apply dakins gauze to wound bed, abd and wrap daily abx as per ID will follow with recs ICD Codes: T14.8XXA - Other injury of unspecified body region, initial enco unter; L08.9 - Local infection of the skin and subcutaneous tissue, unspecified SNOMED: 30283047 (3) JESENIA (acute kidney injury) ICD Codes: N17.9 - Acute kidney failure, unspecified SNOMED: 27188550 (4) Hypertension ICD Codes: I10 - Hypertension SNOMED: 11505232 (5) BPH (benign prostatic hyperplasia) ICD Codes: N40.0 - Enlarged prostate without lower urinary tract symptoms SNOMED: 171921707, 577272437 (6) PAD (peripheral artery disease) ICD Codes: I73.9 - Peripheral vascular disease, unspecified SNOMED: 837760638 (7) HLD (hyperlipidemia) ICD Codes: E78.5 - Hyperlipidemia, unspecified SNOMED: 35937855, 087624312 (8) Anemia ICD Codes: D64.9 - Anemia, unspecified SNOMED: 459197701 (9) Syncope ICD Codes: R55 - Syncope and collapse SNOMED: 680371990 (10) GI bleed ICD Codes: K92.2 - Gastrointestinal hemorrhage, unspecified SNOMED: 02811386 (11) Episode of generalized weakness ICD Codes: R53.1 - Weakness SNOMED: 37077115 (12) Encounter for medication refill ICD Codes: Z76.0 - Encounter for medication refill SNOMED: 699722238 (13) Encounter for medication refill ICD Codes: Z76.0 - Encounter for issue of repeat prescription SNOMED: 090404414 Dirk Torrez Feb 26, 2020 09:17
--- NOTE | 2020-02-26 10:28 | Pulmonology Progress Note ---
Subjective ROS Limited/Unobtainable: No Allergies: Coded Allergies: No Known Allergies (Unverified , 08/05/14) Objective Last 24 Hour Vital Signs Date Time Temp Pulse Resp B/P (MAP) Pulse Ox O2 Delivery O2 Flow Rate FiO2 02/26/20 08:44 134/70 02/26/20 08:43 72 134/70 02/26/20 08:43 72 134/70 02/26/20 08:42 134/70 02/26/20 04:00 98.1 78 18 141/76 (97) 97 02/26/20 00:00 98.0 71 18 132/76 (94) 98 02/25/20 22:07 Room Air 02/25/20 21:40 98.3 69 20 126/57 100 Room Air 02/25/20 21:40 69 20 Room Air 02/25/20 19:30 98.4 61 22 113/73 100 Room Air 02/25/20 17:53 98.4 80 20 106/56 99 Room Air 02/25/20 17:16 98.4 77 20 106/56 (73) 99 Room Air Intake and Output 02/25/20 02/26/20 18:59 06:59 Intake Total 100 ml 210 ml Output Total 50 ml Balance 100 ml 160 ml Intake Oral 100 ml 210 ml Output Urine Total 50 ml # Voids 1 Microbiology Date/Time Source Procedure Growth Status 02/26/20 06:00 Rectal Mucosa Received Laboratory Tests 02/25/20 17:50: White Blood Count 4.0L, Red Blood Count 4.44L, Hemoglobin 13.5L, Hematocrit 44.9, Mean Corpuscular Volume 101H, Mean Corpuscular Hemoglobin 30.5, Mean Corpuscular Hemoglobin Concent 30.1L, Red Cell Distribution Width 16.2H, Platelet Count 184, Mean Platelet Volume 7.8, Neutrophils (%) (Auto) 49.6, Lymphocytes (%) (Auto) 38.2, Monocytes (%) (Auto) 8.0, Eosinophils (%) (Auto) 2.8, Basophils (%) (Auto) 1.5, Prothrombin Time 10.7, Prothromb Time International Ratio 1.0, Activated Partial Thromboplast Time 26, Sodium Level 145, Potassium Level 3.4L, Chloride Level 106, Carbon Dioxide Level 33H, Anion Gap 7, Blood Urea Nitrogen 12, Creatinine 2.5H, Estimat Glomerular Filtration Rate 30.1, Glucose Level 93, Calcium Level 9.3, Total Bilirubin 0.2, Aspartate Amino Transf (AST/SGOT) 16, Alanine Aminotransferase (ALT/SGPT) 15, Alkaline Phosphatase 167H, Total Protein 7.4, Albumin 3.5, Globulin 3.9, Albumin/Globulin Ratio 0.9L 02/26/20 05:45: White Blood Count 4.4L, Red Blood Count 4.08L, Hemoglobin 12.4L, Hematocrit 38.6L, Mean Corpuscular Volume 95, Mean Corpuscular Hemoglobin 30.4, Mean Corpuscular Hemoglobin Concent 32.1, Red Cell Distribution Width 15.3H, Platelet Count 174, Mean Platelet Volume 7.0, Neutrophils (%) (Auto) 53.1, Lymphocytes (%) (Auto) 35.9, Monocytes (%) (Auto) 7.9, Eosinophils (%) (Auto) 2.2, Basophils (%) (Auto) 0.8, Sodium Level 144, Potassium Level 3.6, Chloride Level 109H, Carbon Dioxide Level 31, Anion Gap 4L, Blood Urea Nitrogen 19H, Creatinine 2.9H, Estimat Glomerular Filtration Rate 25.3, Glucose Level 84, Calcium Level 8.6, Prealbumin [Pending], Zinc Level [Pending] 02/26/20 06:00: Urine Color Yellow, Urine Appearance Clear, Urine pH 8, Urine Specific [place] 1.010, Urine Protein 3+H, Urine Glucose (UA) Negative, Urine Ketones Negative, Urine Blood 1+H, Urine Nitrite Negative, Urine Bilirubin Negative, Urine Urobilinogen Normal, Urine Leukocyte Esterase Negative, Urine RBC 0-2H, Urine WBC 0, Urine Squamous Epithelial Cells None, Urine Bacteria None Current Medications Medications (Trade) Dose Ordered Sig/Yesenia Route PRN Reason Start Time Stop Time Status Last Admin Dose Admin Acetaminophen (Tylenol) 650 mg Q6H PRN ORAL For Pain 02/25/20 23:30 03/26/20 23:29 Amlodipine Besylate (Norvasc) 10 mg DAILY ORAL 02/26/20 09:00 03/27/20 08:59 02/26/20 08:43 Atenolol (Tenormin) 25 mg DAILY ORAL 02/26/20 09:00 03/27/20 08:59 02/26/20 08:43 Atorvastatin Calcium (Lipitor) 10 mg BEDTIME ORAL 02/26/20 21:00 05/26/20 20:59 Benazepril HCl (Lotensin) 10 mg DAILY ORAL 02/26/20 09:00 03/27/20 08:59 02/26/20 08:42 Cefazolin Sodium 1 gm/Dextrose 55 ml @ 110 mls/hr EVERY 12 HOURS IVPB 02/26/20 09:00 03/04/20 08:59 02/26/20 09:02 Docusate Sodium (Colace) 100 mg BID ORAL 02/26/20 09:00 03/27/20 08:59 02/26/20 08:40 Gabapentin (Neurontin) 100 mg QHS ORAL 02/26/20 21:00 03/27/20 20:59 Heparin Sodium (Porcine) (Heparin 5000 units/ml) 5,000 units EVERY 8 HOURS SUBQ 02/26/20 06:00 04/11/20 05:59 02/26/20 06:39 Ipratropium [place] (Atrovent) 500 mcg Q6HR PRN HHN Shortness of Breath 02/25/20 22:45 03/01/20 22:44 Lisinopril (ZestriL) 10 mg DAILY ORAL 02/26/20 09:00 03/27/20 08:59 02/26/20 08:44 Meloxicam (Mobic) 7.5 mg DAILY ORAL 02/26/20 09:00 03/27/20 08:59 02/26/20 08:48 Pantoprazole (Protonix) 40 mg DAILY IVP 02/26/20 09:00 03/27/20 08:59 02/26/20 08:40 Sodium Hypochlorite (Dakin's Quarter Strength) 1 applic DAILY TOPIC 02/26/20 11:00 03/27/20 10:59 Tamsulosin HCl (Flomax) 0.4 mg DAILY ORAL 02/26/20 09:00 03/27/20 08:59 02/26/20 08:41 Vancomycin HCl (Vanco pharmacy to dose) 1 ea DAILY PRN MISC Per rx protocol 02/25/20 22:45 03/26/20 22:44 Vancomycin HCl 500 mg/Dextrose 110 ml @ 110 mls/hr Q24H IVPB 02/26/20 18:00 03/02/20 17:59 Assessment/Plan Assessment/Plan Progress Note HPI Patient is an 84-year-old male history of previous polio,chronic kidney disease, hypertension, chronic left lower extremity wound presents for worsening lower extremity wound. Patient was visited by a home nursing,wound noted to be worse with maggots, patient denies any pain or fever. He states he has had the wound for many years. Previous surgery in the area. Normally walks with a cane. Allergies: No Known Allergies PMH: previous polio,chronic kidney disease, hypertension, chronic left lower extremity wound presents for worsening lower extremity wound PSH: left lower extremity surgery Physical Exam Vital Signs Noted General Appearance: well appearing, no apparent distress Head: normocephalic, atraumatic Eyes: bilateral eye PERRL, bilateral eye EOMI ENT: hearing grossly normal, moist mucus membranes Neck: full range of motion, supple Respiratory: lungs clear, normal breath sounds, no rhonchi, no respiratory distress, no retraction, no wheezing Cardiovascular: HS1, [id number], ormal peripheral pulses, regular rate, rhythm, no murmur Gastrointestinal: non tender, soft, non-distended, no guarding Neurologic: alert, oriented x3, no focal defects Skin: normal color, warm/dry, other - Wound noted to left lower extremity 3 x 2 cm, with purulent drainage. Previous surgical scar over the area. 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 PPX Monitor labs Laboratory Tests noted Test 02/25/20 17:50 White Blood Count 4.0 K/UL (4.8-10.8) L Red Blood Count 4.44 M/UL (4.70-6.10) L Hemoglobin 13.5 G/DL (14.2-18.0) L Hematocrit 44.9 % (42.0-52.0) Mean Corpuscular Volume 101 FL (80-99) H Mean Corpuscular Hemoglobin 30.5 PG (27.0-31.0) Mean Corpuscular Hemoglobin Concent 30.1 G/DL (32.0-36.0) L Red Cell Distribution Width 16.2 % (11.6-14.8) H Platelet Count 184 K/UL (150-450) Mean Platelet Volume 7.8 FL (6.5-10.1) Neutrophils (%) (Auto) 49.6 % (45.0-75.0) Lymphocytes (%) (Auto) 38.2 % (20.0-45.0) Monocytes (%) (Auto) 8.0 % (1.0-10.0) Eosinophils (%) (Auto) 2.8 % (0.0-3.0) Basophils (%) (Auto) 1.5 % (0.0-2.0) Prothrombin Time 10.7 SEC (9.30-11.50) Prothrombin Time INR 1.0 (0.9-1.1) Activated Partial Thromboplast Time 26 SEC (23-33) Sodium Level 145 MMOL/L (136-145) Potassium Level 3.4 MMOL/L (3.5-5.1) L Chloride Level 106 MMOL/L (98-107) Carbon Dioxide Level 33 MMOL/L (21-32) H Anion Gap 7 mmol/L (5-15) Blood Urea Nitrogen 12 mg/dL (7-18) Creatinine 2.5 MG/DL (0.55-1.30) H Estimated Glomerular Filtration Rate 30.1 mL/min (>60) Glucose Level 93 MG/DL (74-106) Calcium Level 9.3 MG/DL (8.5-10.1) Total Bilirubin 0.2 MG/DL (0.2-1.0) Aspartate Amino Transferase (AST) 16 U/L (15-37) Alanine Aminotransferase (ALT) 15 U/L (12-78) Alkaline Phosphatase 167 U/L (46-116) H Total Protein 7.4 G/DL (6.4-8.2) Albumin 3.5 G/DL (3.4-5.0) Globulin 3.9 g/dL Albumin/Globulin Ratio 0.9 (1.0-2.7) L Enrrique Ahmadi MD Feb 26, 2020 10:28
[2020-02-26 12:00] VITALS: BP 114/61
--- NOTE | 2020-02-26 12:25 | NUR ---
RD ASSESSMENT & RECOMMENDATIONS SEE CARE ACTIVITY FOR COMPLETE ASSESSMENT DAILY ESTIMATED NEEDS: Needs based on Wound healing 64kg 25-30 kcals/kg 1087-2007 total kcals 1.25-1.8 g protein/kg 80-115 g total protein 25-30 mL/kg 2291-2332 total fluid mLs NUTRITION DIAGNOSIS: * Increased kcal/prot intake needs R/T wound healing as evidenced by admitted w/ stage 4 full thickness wound @ left mid shaft tibia. CURRENT DIET:CARDIAC PO DIET RECOMMENDATIONS: LOW NA/ texture as tolerated ADDITIONAL RECOMMENDATIONS: * Standing wt as able for accurate CBW * Wound healing: add MVI x 1, Vit C 500mg BID, ZnSO4 220mg QD x 10 days : Deniz 1pkt BID added to tray
[2020-02-26] MEDS: Dakin's 0.125% Soln (Quarter Strength) 16oz TOPIC SCH (13:30)
--- NOTE | 2020-02-26 13:46 | Diagnostic Imaging Report ---
EXAM: XR Left Tibia and Fibula, 2 Views CLINICAL HISTORY: F/U TECHNIQUE: Frontal and lateral views of the left tibia and fibula. COMPARISON: Left tib-fib radiographs on 11/11/2018 FINDINGS: Bones/joints: Stable lateral convex curvature of the left tibia with similar heterogeneity. Irregularity previously seen in the cortex of the left tibia has resolved. Osteopenia. No displaced fracture or dislocation identified. No knee joint effusion. Chondrocalcinosis in the medial and lateral knee compartments. Soft tissues: Diffuse soft tissue swelling. Surgical clips in the medial left lower leg. IMPRESSION: 1. Stable lateral convex curvature of the left tibia with similar heterogeneity. Irregularity previously seen in the cortex of the left tibia has resolved. 2. Diffuse soft tissue swelling.
[2020-02-26 16:00] VITALS: BP 112/68
--- NOTE | 2020-02-26 17:44 | NUR ---
NURSE NOTES: Dressing to the left leg clean,dressing changed was done today per Doctor order ,noted when changing dressing today,maggots noted in the wound. Patient has no complaint of pain .Patient still able to void small amount of urine throughout the day.Patient ate dinner.Call light within reach.
[2020-02-26] MEDS ORDERED: Vancomycin 500mg/D5W 110ml IVPB SCH ×2 (18:00)
--- NOTE | 2020-02-26 19:33 | NUR ---
NURSE HAND-OFF: Sofia DELANEY Important Events on Shift:[Dressing change to left leg done ] Patient Status: [] Diet: [Cardiac chopped] Pending Orders: [] Pending Results/Labs:[] Pending MD notification:[] Latest Vital Signs: Temperature 97.9 , Pulse 83 , B/P 112 /68 , Respiratory Rate 17 , O2 SAT 99 , Room Air, O2 Flow Rate . Vital Sign Comment: [] Latest Cleary Fall Score: 35 Fall Risk: Medium Risk Safety Measures: Call light Within Reach, Bed Alarm Zone 1, Side Rails Side Rails x2, Bed position Low and Locked. Fall Precautions: ambulate with with cane,steady Yellow Socks Yellow Gown Patient Fall Education Report given to [].
[2020-02-26 19:49] VITALS: BP 95/67
--- NOTE | 2020-02-26 20:00 | NUR ---
NURSE NOTES: Patient received in bed, aox4, cane at bedside. Denies pain or discomfort. Wound dressing c/d/i. Call light in reach, instructed to call for assistance, verbalized understanding. Will continue to monitor.
[2020-02-27] VITALS (7 sets, daily range): BP systolic 94–126; BP diastolic 51–84
[2020-02-27] MEDS: Heparin 5000 units/ml inj SUBQ SCH ×3 (06:12→21:43)
--- NOTE | 2020-02-27 06:49 | NUR ---
NURSE HAND-OFF: Important Events on Shift:[uneventful] Patient Status: [stable] Diet: [cardiac mech soft chopped] Pending Orders: [] Pending Results/Labs:[see chart] Pending MD notification:[] Latest Vital Signs: Temperature 98.6 , Pulse 60 , B/P 114 /58 , Respiratory Rate 18 , O2 SAT 98 , Room Air, O2 Flow Rate . Vital Sign Comment: [] Latest Cleary Fall Score: 35 Fall Risk: Medium Risk Safety Measures: Call light Within Reach, Bed Alarm Zone 1, Side Rails Side Rails x2, Bed position Low and Locked. Fall Precautions: Patient Fall Education
--- NOTE | 2020-02-27 07:08 | NUR ---
HAND-OFF: Report given to Tala DELANEY.
--- NOTE | 2020-02-27 07:32 | NUR ---
NURSE NOTES: Patient awake and alert and oriented,respirations unlabored.Dressing to the left lower part of the leg intact. Patient sitting up in bed and eating breakfst.no complaint of pain at this time.Call light within reach.
[2020-02-27 08:17] LABS: BASOPHILS % (AUTO) 0.7 % (0.0-2.0); HEMOGLOBIN 12.2 G/DL (14.2-18.0); LYMPHOCYTES % (AUTO) 25.5 % (20.0-45.0); MEAN CORPUSCULAR VOLUME 94 FL (80-99); MONOCYTES % (AUTO) 7.4 % (1.0-10.0); NEUTROPHILS % (AUTO) 64.3 % (45.0-75.0); PLATELET COUNT 167 K/UL (150-450); RED BLOOD COUNT 4.02 M/UL (4.70-6.10); RED CELL DISTRIBUTION WIDTH 14.9 % (11.6-14.8); WHITE BLOOD COUNT 4.6 K/UL (4.8-10.8)
[2020-02-27] MEDS: Docusate 100mg cap ORAL SCH ×2 (08:22→18:01)
[2020-02-27] MEDS: Pantoprazole Inj IVP SCH (08:25)
[2020-02-27 08:46] LABS: ALBUMIN 2.6 G/DL (3.4-5.0); ALBUMIN/GLOBULIN RATIO 0.8 (1.0-2.7); BILIRUBIN,TOTAL 0.3 MG/DL (0.2-1.0); CALCIUM 8.8 MG/DL (8.5-10.1); CREATININE 3.6 MG/DL (0.55-1.30); POTASSIUM 3.7 MMOL/L (3.5-5.1)
[2020-02-27] MEDS: Lisinopril 10mg tab ORAL SCH (09:00)
[2020-02-27] MEDS: Atenolol 25mg tab ORAL SCH (09:00)
[2020-02-27] MEDS: Benazepril 10mg tab ORAL SCH (09:00)
[2020-02-27] MEDS: Tamsulosin 0.4mg cap ORAL SCH (09:00)
--- NOTE | 2020-02-27 09:35 | NUR ---
CHARGE NURSE NOTE: Spoke with , notified him that pt needs a renal consult. He will ask to see the patient.
[2020-02-27] MEDS: ceFAZolin sod 1 GM in D5W 55 ML IVPB SCH (10:00)
--- NOTE | 2020-02-27 11:30 | Consultation ---
DATE OF CONSULTATION: 02/27/2020 NEPHROLOGY CONSULTATION CONSULTING PHYSICIAN: Parag Beltre MD. REFERRING PHYSICIANS: 1. Dr. Ahmadi. 2. Donell Negro MD. REASON FOR CONSULTATION: End-stage renal disease. HISTORY OF PRESENT ILLNESS: The patient has been on dialysis for quite a few years. He is a poor historian. He presents with worsening wound in the left leg which apparently is longstanding. The patient has a history of hypertension. He has a history of polio as a child. ALLERGIES: None known. HOME MEDICATIONS: Listed on the computer include amlodipine, atenolol, atorvastatin, benazepril, Keflex, DSS, gabapentin, subcutaneous heparin, lisinopril, meloxicam, Zofran, Zocor, tamsulosin. HABITS: He smoked in the distant past and quit. No alcohol or drugs. PAST SURGICAL HISTORY: Surgery on both legs as a child for polio, right and left arm dialysis access surgeries, and currently has a Perm[facility]. SYSTEM REVIEW: HEAD, EYES, EARS, NOSE, AND THROAT: Vision and hearing is good. ENDOCRINE: He is not aware of any diabetes or thyroid disease. PULMONARY: No chronic cough, asthma, or TB. CARDIAC: Denies angina, MO, palpitations. GASTROINTESTINAL: Denies gastrointestinal bleeding, abdominal pain, nausea, and vomiting. GENITOURINARY: He makes little urine. NEUROLOGIC: History of polio as a child. He has some memory problems which he admits to and has sometimes trouble finding words. He is not aware of any definite stroke. PHYSICAL EXAMINATION: GENERAL: The patient is alert, well-developed man, in no acute distress. VITAL SIGNS: BMI 22.4, temperature 98.6, pulse 60, respiratory rate 18, blood pressure 114/58. HEAD, EYES, EARS, NOSE, AND THROAT: Sclerae are nonicteric. Ocular motions intact in all directions. Oral mucosa moist. NECK: No adenopathy. LUNGS: Clear. HEART: Regular rhythm. I hear no murmur. ABDOMEN: Soft without organomegaly or masses. EXTREMITIES: There are scars from old dialysis access in both arms. There is a large bulky dressing in the left leg and this is not removed by myself. No edema, cyanosis, or clubbing. NEUROLOGIC: He is alert and responsive. Speech is clear. Ocular motions intact in all directions. Smile symmetric. He moves all extremities. PERTINENT LABORATORY DATA: White count 4.6, hemoglobin 12.2. Sodium 141, potassium 3.7, BUN 22, creatinine 3.6. Calcium 8.8. Albumin 2.6. IMPRESSION: 1. End-stage renal disease. 2. Chronic wound left leg, examined by Dr. Torrez and I did not disturb the dressing, possible cellulitis and ulceration, concern for possible osteomyelitis. 3. History of hypertension with relatively low blood pressure since admission to the hospital. 4. 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 PLAN: All orders reviewed for end-stage renal disease. Dialysis will be arranged via the [facility]. He is being evaluated for his wound. Blood pressure tends to be low and I will place hold parameters on his blood pressure medicines. Parag Beltre M.D. DR: Estefania JOB#: [id number] CC:
--- NOTE | 2020-02-27 13:27 | NUR ---
CHARGE NURSE NOTE: Spoke with Tosin ([facility] hemodialysis), notified them that pt is scheduled for HD tomorrow.
[2020-02-27] MEDS: Dakin's 0.125% Soln (Quarter Strength) 16oz TOPIC SCH (13:29)
[2020-02-27] MEDS ORDERED: Hydrogen Peroxide 473ml Bottle TOPIC SCH (15:30)
--- NOTE | 2020-02-27 16:10 | Surgery Progress Note ---
Surgery Progress Note Subjective Additional Comments maggots noted again today large plan peroxide from rx Objective Last 24 Hour Vital Signs Date Time Temp Pulse Resp B/P (MAP) Pulse Ox O2 Delivery O2 Flow Rate FiO2 02/27/20 12:00 97.6 78 16 126/57 (80) 98 02/27/20 09:00 111/54 02/27/20 09:00 111/54 02/27/20 09:00 69 111/54 02/27/20 09:00 Room Air 02/27/20 08:00 98.0 69 18 111/54 (73) 99 02/27/20 04:00 98.6 60 18 114/58 (76) 98 02/27/20 00:00 98.5 64 20 94/51 (65) 98 02/26/20 21:00 Room Air 02/26/20 19:49 99.0 61 20 95/67 (76) 100 I&O Intake and Output 02/26/20 02/27/20 19:00 07:00 Intake Total 960 ml 55 ml Output Total 225 ml 100 ml Balance 735 ml -45 ml Intake Oral 960 ml IV Total 55 ml Output Urine Total 225 ml 100 ml # Voids 3 2 Dressing: saturated Cardiovascular: RSR Respiratory: clear, decreased breath sounds Abdomen: soft, non-tender, present bowel sounds Extremities: edema, no cyanosis, other Laboratory Tests Test 02/27/20 06:25 White Blood Count 4.6 K/UL (4.8-10.8) L Red Blood Count 4.02 M/UL (4.70-6.10) L Hemoglobin 12.2 G/DL (14.2-18.0) L Hematocrit 38.0 % (42.0-52.0) L Mean Corpuscular Volume 94 FL (80-99) Mean Corpuscular Hemoglobin 30.4 PG (27.0-31.0) Mean Corpuscular Hemoglobin Concent 32.2 G/DL (32.0-36.0) Red Cell Distribution Width 14.9 % (11.6-14.8) H Platelet Count 167 K/UL (150-450) Mean Platelet Volume 7.3 FL (6.5-10.1) Neutrophils (%) (Auto) 64.3 % (45.0-75.0) Lymphocytes (%) (Auto) 25.5 % (20.0-45.0) Monocytes (%) (Auto) 7.4 % (1.0-10.0) Eosinophils (%) (Auto) 2.0 % (0.0-3.0) Basophils (%) (Auto) 0.7 % (0.0-2.0) Erythrocyte Sedimentation Rate 18 MM/HR (0-20) Sodium Level 141 MMOL/L (136-145) Potassium Level 3.7 MMOL/L (3.5-5.1) Chloride Level 107 MMOL/L (98-107) Carbon Dioxide Level 28 MMOL/L (21-32) Anion Gap 6 mmol/L (5-15) Blood Urea Nitrogen 22 mg/dL (7-18) H Creatinine 3.6 MG/DL (0.55-1.30) H Estimat Glomerular Filtration Rate 19.8 mL/min (>60) Glucose Level 78 MG/DL (74-106) Calcium Level 8.8 MG/DL (8.5-10.1) Total Bilirubin 0.3 MG/DL (0.2-1.0) Aspartate Amino Transf (AST/SGOT) 15 U/L (15-37) Alanine Aminotransferase (ALT/SGPT) 11 U/L (12-78) L Alkaline Phosphatase 127 U/L (46-116) H C-Reactive Protein, Quantitative 1.0 mg/dL (0.00-0.90) H Total Protein 5.8 G/DL (6.4-8.2) L Albumin 2.6 G/DL (3.4-5.0) L Globulin 3.2 g/dL Albumin/Globulin Ratio 0.8 (1.0-2.7) L Hepatitis B Surface Antigen Pending Plan Problems: (1) Open wound (2) Wound infection Assessment & Plan: Patient presented on admission with a wound to his anterior Left tibia. He stated he has had wound for almost years but is not aware of how he developed wound. use to have injury to both legs for year from work but most healed. left mid shaft tibial stage 4 Full thickness wound that is malodorous .Base of wound is necrotic down to bone which has moist eschar necrotic layer. Small amt brown exudate. Darker skin tone without elevation in skin temp,fluctuance or induration noted. Dry flaky skin noted to LLE. states wound use to be much large and has contracted to this small necrotic wound now. approximately 4cm x 3cm x 1cm down to bone. chronic dry. surgical prolene suture noted as recent intervention must have been done outpatient elsewhere L foot warm to touch. Pt denied fever, or pain at site of wound. LLE washed with soap and water and moisturized. Wash left leg wound daily with NS apply dakins gauze to wound bed, abd and wrap daily abx as per ID will follow with recs (3) JESENIA (acute kidney injury) (4) Hypertension (5) BPH (benign prostatic hyperplasia) (6) PAD (peripheral artery disease) (7) HLD (hyperlipidemia) (8) Anemia (9) Syncope (10) GI bleed (11) Episode of generalized weakness (12) Encounter for medication refill (13) Encounter for medication refill Dirk Torrez Feb 27, 2020 16:10
--- NOTE | 2020-02-27 17:00 | Pulmonology Progress Note ---
Subjective ROS Limited/Unobtainable: No Allergies: Coded Allergies: No Known Allergies (Unverified , 08/05/14) Objective Last 24 Hour Vital Signs Date Time Temp Pulse Resp B/P (MAP) Pulse Ox O2 Delivery O2 Flow Rate FiO2 02/27/20 12:00 97.6 78 16 126/57 (80) 98 02/27/20 09:00 111/54 02/27/20 09:00 111/54 02/27/20 09:00 69 111/54 02/27/20 09:00 Room Air 02/27/20 08:00 98.0 69 18 111/54 (73) 99 02/27/20 04:00 98.6 60 18 114/58 (76) 98 02/27/20 00:00 98.5 64 20 94/51 (65) 98 02/26/20 21:00 Room Air 02/26/20 19:49 99.0 61 20 95/67 (76) 100 Intake and Output 02/26/20 02/27/20 19:00 07:00 Intake Total 960 ml 55 ml Output Total 225 ml 100 ml Balance 735 ml -45 ml Intake Oral 960 ml IV Total 55 ml Output Urine Total 225 ml 100 ml # Voids 3 2 Microbiology Date/Time Source Procedure Growth Status 02/26/20 06:00 Rectal Mucosa Received 02/26/20 06:00 Leg Left Gram Stain - Final Resulted 02/26/20 06:00 Leg Left Wound Culture - Preliminary Resulted Laboratory Tests 02/27/20 06:25: White Blood Count 4.6L, Red Blood Count 4.02L, Hemoglobin 12.2L, Hematocrit 38.0L, Mean Corpuscular Volume 94, Mean Corpuscular Hemoglobin 30.4, Mean Corpuscular Hemoglobin Concent 32.2, Red Cell Distribution Width 14.9H, Platelet Count 167, Mean Platelet Volume 7.3, Neutrophils (%) (Auto) 64.3, Lymphocytes (% ) (Auto) 25.5, Monocytes (%) (Auto) 7.4, Eosinophils (%) (Auto) 2.0, Basophils (%) (Auto) 0.7, Erythrocyte Sedimentation Rate 18, Sodium Level 141, Potassium Level 3.7, Chloride Level 107, Carbon Dioxide Level 28, Anion Gap 6, Blood Urea Nitrogen 22H, Creatinine 3.6H, Estimat Glomerular Filtration Rate 19.8, Glucose Level 78, Calcium Level 8.8, Total Bilirubin 0.3, Aspartate Amino Transf (AST/SGOT) 15, Alanine Aminotransferase (ALT/SGPT) 11L, Alkaline Phosphatase 127H, C-Reactive Protein, Quantitative 1.0H, Total Protein 5.8L, Albumin 2.6L, Globulin 3.2, Albumin/Globulin Ratio 0.8L, Hepatitis B Surface Antigen [Pending] Current Medications Medications (Trade) Dose Ordered Sig/Yesenia Route PRN Reason Start Time Stop Time Status Last Admin Dose Admin Acetaminophen (Tylenol) 650 mg Q6H PRN ORAL For Pain 02/25/20 23:30 03/26/20 23:29 Atenolol (Tenormin) 25 mg DAILY ORAL 02/26/20 09:00 03/27/20 08:59 02/26/20 08:43 Atorvastatin Calcium (Lipitor) 10 mg BEDTIME ORAL 02/26/20 21:00 05/26/20 20:59 02/26/20 20:53 Benazepril HCl (Lotensin) 10 mg DAILY ORAL 02/26/20 09:00 03/27/20 08:59 02/26/20 08:42 Cefazolin Sodium 1 gm/Dextrose 55 ml @ 110 mls/hr Q24H IVPB 02/28/20 09:00 03/06/20 08:59 Docusate Sodium (Colace) 100 mg BID ORAL 02/26/20 09:00 03/27/20 08:59 02/27/20 08:22 Gabapentin (Neurontin) 100 mg QHS ORAL 02/26/20 21:00 03/27/20 20:59 02/26/20 20:53 Heparin Sodium (Porcine) (Heparin 5000 units/ml) 5,000 units EVERY 8 HOURS SUBQ 02/26/20 06:00 04/11/20 05:59 02/27/20 14:27 Heparin Sodium (Porcine) (Heparin Sod 1000 units/ml 10ml) 2,000 unit ONCE PRN IV DIALYSIS 02/28/20 08:00 02/28/20 23:59 Hydrogen Peroxide (Hydrogen Peroxide) 1 applic DAILY TOPIC 02/28/20 20:00 05/28/20 19:59 UNV Ipratropium [place] (Atrovent) 500 mcg Q6HR PRN HHN Shortness of Breath 02/25/20 22:45 03/01/20 22:44 Lisinopril (ZestriL) 10 mg DAILY ORAL 02/26/20 09:00 03/27/20 08:59 02/26/20 08:44 Meloxicam (Mobic) 7.5 mg DAILY ORAL 02/26/20 09:00 03/27/20 08:59 02/27/20 08:25 Pantoprazole (Protonix) 40 mg DAILY IVP 02/26/20 09:00 03/27/20 08:59 02/27/20 08:25 Sodium Hypochlorite (Dakin's Quarter Strength) 1 applic DAILY TOPIC 02/26/20 11:00 03/27/20 10:59 02/27/20 13:29 Sodium Chloride 1,000 ml @ 500 mls/hr Q2H PRN IVLG sbp<90 during hd 02/28/20 08:00 02/28/20 23:59 Tamsulosin HCl (Flomax) 0.4 mg DAILY ORAL 02/26/20 09:00 03/27/20 08:59 02/26/20 08:41 Vancomycin HCl ([facility] pharmacy to dose) 1 ea DAILY PRN MISC Per rx protocol 02/25/20 22:45 03/26/20 22:44 Assessment/Plan Assessment/Plan Progress Note HPI Patient is an 84-year-old male history of previous polio,chronic kidney disease, hypertension, chronic left lower extremity wound presents for worsening lower extremity wound. Patient was visited by a home nursing,wound noted to be worse with maggots, patient denies any pain or fever. He states he has had the wound for many years. Previous surgery in the area. Normally walks with a cane. Allergies: No Known Allergies PMH: previous polio,chronic kidney disease, hypertension, chronic left lower extremity wound presents for worsening lower extremity wound PSH: left lower extremity surgery Physical Exam Vital Signs Noted General Appearance: well appearing, no apparent distress Head: normocephalic, atraumatic Eyes: bilateral eye PERRL, bilateral eye EOMI ENT: hearing grossly normal, moist mucus membranes Neck: full range of motion, supple Respiratory: lungs clear, normal breath sounds, no rhonchi, no respiratory distress, no retraction, no wheezing Cardiovascular: HS1, [id number], ormal peripheral pulses, regular rate, rhythm, no murmur Gastrointestinal: non tender, soft, non-distended, no guarding Neurologic: alert, oriented x3, no focal defects Skin: normal color, warm/dry, other - Wound noted to left lower extremity 3 x 2 cm, with purulent drainage. Previous surgical scar over the area. 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 Medications PPX Monitor labs Laboratory Tests noted Test 02/25/20 17:50 White Blood Count 4.0 K/UL (4.8-10.8) L Red Blood Count 4.44 M/UL (4.70-6.10) L Hemoglobin 13.5 G/DL (14.2-18.0) L Hematocrit 44.9 % (42.0-52.0) Mean Corpuscular Volume 101 FL (80-99) H Mean Corpuscular Hemoglobin 30.5 PG (27.0-31.0) Mean Corpuscular Hemoglobin Concent 30.1 G/DL (32.0-36.0) L Red Cell Distribution Width 16.2 % (11.6-14.8) H Platelet Count 184 K/UL (150-450) Mean Platelet Volume 7.8 FL (6.5-10.1) Neutrophils (%) (Auto) 49.6 % (45.0-75.0) Lymphocytes (%) (Auto) 38.2 % (20.0-45.0) Monocytes (%) (Auto) 8.0 % (1.0-10.0) Eosinophils (%) (Auto) 2.8 % (0.0-3.0) Basophils (%) (Auto) 1.5 % (0.0-2.0) Prothrombin Time 10.7 SEC (9.30-11.50) Prothrombin Time INR 1.0 (0.9-1.1) Activated Partial Thromboplast Time 26 SEC (23-33) Sodium Level 145 MMOL/L (136-145) Potassium Level 3.4 MMOL/L (3.5-5.1) L Chloride Level 106 MMOL/L (98-107) Carbon Dioxide Level 33 MMOL/L (21-32) H Anion Gap 7 mmol/L (5-15) Blood Urea Nitrogen 12 mg/dL (7-18) Creatinine 2.5 MG/DL (0.55-1.30) H Estimated Glomerular Filtration Rate 30.1 mL/min (>60) Glucose Level 93 MG/DL (74-106) Calcium Level 9.3 MG/DL (8.5-10.1) Total Bilirubin 0.2 MG/DL (0.2-1.0) Aspartate Amino Transferase (AST) 16 U/L (15-37) Alanine Aminotransferase (ALT) 15 U/L (12-78) Alkaline Phosphatase 167 U/L (46-116) H Total Protein 7.4 G/DL (6.4-8.2) Albumin 3.5 G/DL (3.4-5.0) Globulin 3.9 g/dL Albumin/Globulin Ratio 0.9 (1.0-2.7) Enrrique Reynoso MD Feb 27, 2020 17:00
--- NOTE | 2020-02-27 19:03 | NUR ---
NURSE NOTES: Dialysis nurse Ellis aware of order for dialysis schedule on 02/28/20.Patient sign consent for dialysis.Dressing change was done today DR Torrez was updated regarding patient still have many maggots in the left leg wound.New orders were given Patient has no complaint of pain.Call light within reach.
--- NOTE | 2020-02-27 19:20 | NUR ---
NURSE HAND-OFF: Sofia DELANEY Important Events on Shift:[]wound care left leg Patient Status: [] Diet: Cardiac Diet[] Pending Orders: []Dialysis schedule for 02/28/20 Pending Results/Labs:[] Pending MD notification:[] Latest Vital Signs: Temperature 98.0 , Pulse 69 , B/P 117 /84 , Respiratory Rate 19 , O2 SAT 98 , Room Air, O2 Flow Rate . Vital Sign Comment: [] Latest Cleary Fall Score: 35 Fall Risk: Medium Risk Safety Measures: Call light Within Reach, Bed Alarm Zone 1, Side Rails Side Rails x2, Bed position Low and Locked. Fall Precautions: Patient Fall Education patient ambulate gait is steady Report given to [].
--- NOTE | 2020-02-27 19:47 | NUR ---
NURSE NOTES: Patient received in bed, awake, in room air, in no acute distress. GTF tolerating well, no residual. Will continue plan of care. Addendum: 02/27/20 at 1948 by SVEN DANIEL RN RN Disregard note. Wrong patient.
--- NOTE | 2020-02-27 19:48 | NUR ---
NURSE NOTES: Patient received in bed, awake, no acute distress at this time, states feeling "alright". Noted patient scratching above the bandage of his left leg wound (dressed by AM shift), noted with skin dryness, Provided with lotion. Patient aware of dialysis order tomorrow. Will continue plan of care.
[2020-02-27] MEDS ORDERED: ceFAZolin 1gm in D5W 55ml IVPB SCH (21:00)
[2020-02-27] MEDS ORDERED: Vancomycin 1 GM in NS 275 ML IVPB ONE (21:00)
--- NOTE | 2020-02-27 21:00 | NUR ---
NURSE NOTES: Noted patient's IV leaking. New IV access obtained.
[2020-02-28 04:00] VITALS: BP 122/76
[2020-02-28] MEDS: Heparin 5000 units/ml inj SUBQ SCH ×3 (05:21→21:38)
--- NOTE | 2020-02-28 07:40 | NUR ---
NURSE NOTES: Received report from ELAINA Black. Patient is received lying in hospital bed, AAO x 4, able to make needs known, ambulatory using a cane. Patient is on RA, in no apparent respiratory distress and no c/o pain at this time. Patient has good appetite and ate 90% of breakfast, LBM on 02/26/20. Uses urinal, BRP. Has L leg wound with dry dressing changed yesterday. L hand 24 g pIV saline lock noted. Pt has R chest permacath and has HD scheduled for today. Bed in lowest position, locked, call light within reach. Will continue POC.
[2020-02-28 08:00] VITALS: BP 134/71
[2020-02-28] MEDS ORDERED: Heparin Sod 1000 units/ml 10ml IV PRN (08:00)
--- NOTE | 2020-02-28 08:02 | NUR ---
NURSE HAND-OFF: Important Events on Shift:[new IV access, uneventful] Patient Status: [stable] Diet: [Cardiac Mech Chopped] Pending Orders: [for HD today] Pending Results/Labs:[] Pending MD notification:[] Latest Vital Signs: Temperature 97.3 , Pulse 55 , B/P 122 /76 , Respiratory Rate 16 , O2 SAT 100 , Room Air, O2 Flow Rate . Vital Sign Comment: [] Latest Cleary Fall Score: 35 Fall Risk: Medium Risk Safety Measures: Call light Within Reach, Bed Alarm Zone 1, Side Rails Side Rails x2, Bed position Low and Locked. Fall Precautions: Patient Fall Education Report given to [Daniel Modi RN].
--- NOTE | 2020-02-28 08:19 | General Progress Note ---
Subjective Allergies: Coded Allergies: No Known Allergies (Unverified , 08/05/14) Subjective care noted and reviewed surgery noted Objective Last 24 Hour Vital Signs Date Time Temp Pulse Resp B/P (MAP) Pulse Ox O2 Delivery O2 Flow Rate FiO2 02/28/20 04:00 97.3 55 16 122/76 (91) 100 02/27/20 23:14 97.9 57 16 105/55 (72) 99 02/27/20 21:00 Room Air 02/27/20 19:40 98.0 69 19 117/84 (95) 98 02/27/20 16:00 97.7 80 17 122/59 (80) 97 02/27/20 12:00 97.6 78 16 126/57 (80) 98 02/27/20 09:00 111/54 02/27/20 09:00 111/54 02/27/20 09:00 69 111/54 02/27/20 09:00 Room Air Intake and Output 02/27/20 02/28/20 19:00 07:00 Intake Total 240 ml 475.000 ml Output Total 750 ml 300 ml Balance -510 ml 175.000 ml Intake Oral 240 ml 200 ml IV Total 275.000 ml Output Urine Total 750 ml 300 ml Laboratory Tests 02/27/20 18:20: Random Vancomycin Level 12.9 Height (Feet): 5 Height (Inches): 7.00 Weight (Pounds): 141 Objective WDWN NAD clear breath sounds bilaterally without rhonchi or wheeze [id number] without MRG NABS nontender no HSM no CCE nonfocal weak leg wound noted Assessment/Plan Assessment/Plan: Impression: Wound infection Chronic left lower extremity wound Previous polio Chronic kidney disease Hypertension severe PCM Plan Continue IV AB- ID to see Wound nurse and MD Renal Consulted fr HD 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 need for MRI impression, plan, and exam edited and reviewed in detail care discussed with Donell Martinez MD Feb 28, 2020 08:19
[2020-02-28] MEDS ORDERED: ceFAZolin 1gm in D5W 55ml IVPB SCH (09:00)
[2020-02-28] MEDS: Dakin's 0.125% Soln (Quarter Strength) 16oz TOPIC SCH (09:00)
[2020-02-28] MEDS: Benazepril 10mg tab ORAL SCH (09:04)
[2020-02-28] MEDS: Tamsulosin 0.4mg cap ORAL SCH (09:04)
[2020-02-28] MEDS: Atenolol 25mg tab ORAL SCH (09:04)
[2020-02-28] MEDS: Lisinopril 10mg tab ORAL SCH (09:04)
[2020-02-28] MEDS: Docusate 100mg cap ORAL SCH ×2 (09:05→17:05)
[2020-02-28] MEDS: Pantoprazole Inj IVP SCH (09:06)
--- NOTE | 2020-02-28 10:00 | NUR ---
NURSE NOTES: Received call from Ellis of [facility] stating that she will be coming to do patient's HD tx this evening.
--- NOTE | 2020-02-28 11:07 | NUR ---
NURSE NOTES: Skin/wound assessment:Left tibia ulcer 4.0x2.3x0.7 with small amount red granulation tissue,20% yellow slough ,with muscle and bone exposed ,no odor.Patient seen by Dr. Torrez for wound consult and Dakins prescribed .Wet to dry with Dakins solutions applied .Patient states he is not sure how he got wound .He stated his home nurse told him he had maggots and he needed to go to the hospital.No maggots noted today upon assessment.
[2020-02-28 12:00] VITALS: BP 129/77
--- NOTE | 2020-02-28 12:30 | Consultation ---
DATE OF CONSULTATION: 02/28/2020 INFECTIOUS DISEASES CONSULTATION CONSULTING PHYSICIAN: Matthew Neely MD. REFERRING PHYSICIAN: Donell Negro MD. REASON FOR CONSULTATION: Left leg infection. HISTORY OF PRESENTING ILLNESS: This is an 84-year-old gentleman with history of polio, hypertension, chronic kidney disease who comes in with worsening left leg wound. Apparently, the wound had maggots. An Infectious Diseases consultation has been obtained for antibiotics. PAST MEDICAL HISTORY: 1. History of polio. 2. Chronic kidney disease. 3. Hypertension. 4. Chronic left leg wound status post left leg surgery. SOCIAL HISTORY: He used to be a smoker, he does not smoke anymore. He used to drink alcohol, he does not drink anymore. No history of drug use. FAMILY HISTORY: His mother had cancer. REVIEW OF SYSTEMS: RESPIRATORY: No fever, chills, cough, shortness of breath or chest pain. CARDIAC: No chest pain. No palpitation. No dizziness. No syncope. GASTROINTESTINAL: No nausea. No vomiting. No abdominal pain. No diarrhea. MUSCULOSKELETAL: He denies any pain. MEDICATIONS: As an inpatient he is on cefazolin, subcutaneous heparin, gabapentin, atorvastatin, Flomax, Mobic, lisinopril, docusate, benazepril, atenolol, Protonix, subcutaneous heparin, Tylenol, Atrovent. ALLERGIES: No known drug allergies. PHYSICAL EXAMINATION: VITAL SIGNS: Temperature of 97.2, T-max of 99, pulse of 56, respiratory rate 16, blood pressure 134/71, O2 saturation of 100%. HEENT: Pupils equally reactive to light and accommodation. Mouth appears clean without thrush. NECK: Supple. No adenopathy. No JVD. CARDIOVASCULAR: Regular rate and rhythm. No murmurs. LUNGS: Clear to auscultation bilaterally. No crackles. No wheezes. ABDOMEN: Soft and nontender. No organomegaly. EXTREMITIES: No cyanosis, no clubbing, no edema. Left leg anterior wound is noted, which is deep. LABORATORY AND DIAGNOSTIC DATA: White count 4.6, hemoglobin 12.2, hematocrit 38, MCV 94, platelet count of 167 with neutrophils of 64%. Sodium 141, potassium 3.7, chloride 107, bicarb 28, BUN 22, creatinine 3.6, AST 15, ALT 11, alkaline phosphatase 127. CRP of 1. Total protein 5.8, albumin 2.6. UA is showing 0 white cells. Wound culture showing gram-negative rods. Rectal culture was positive for VRE. Nasal swab was negative for MRSA. X-ray of the showing diffuse soft tissue swelling. ASSESSMENT: This is an 84-year-old gentleman with history of chronic kidney disease, hypertension, polio who comes in with worsening left leg wound, would be concerned regarding osteomyelitis with gram-negative rods. 1. Renal failure. 2. Hypertension. PLAN: 1. Discontinue Ancef. 2. We will start the patient on cefepime. 3. Discontinue IV vancomycin. 4. We will order CT of the left leg without contrast. 5. We will follow up wound cultures. I would like to thank, Dr. Negro for this consultation. Matthew Neely M.D. DR: Ale JOB#: [id number] CC: Donell Negro M.D.; Fax#: [phone]
[2020-02-28] MEDS ORDERED: Cefepime HCl 1 GM in D5W 55 ML IVPB SCH (13:00)
--- NOTE | 2020-02-28 14:31 | Surgery Progress Note ---
Surgery Progress Note Subjective Additional Comments no maggots noted today on dressings change no n/v comfortable no complaints Objective Last 24 Hour Vital Signs Date Time Temp Pulse Resp B/P (MAP) Pulse Ox O2 Delivery O2 Flow Rate FiO2 02/28/20 12:00 97.0 57 21 129/77 (94) 100 02/28/20 09:04 134/71 02/28/20 09:04 134/71 02/28/20 09:04 56 134/71 02/28/20 09:00 Room Air 02/28/20 08:00 97.2 56 16 134/71 (92) 100 02/28/20 04:00 97.3 55 16 122/76 (91) 100 02/27/20 23:14 97.9 57 16 105/55 (72) 99 02/27/20 21:00 Room Air 02/27/20 19:40 98.0 69 19 117/84 (95) 98 02/27/20 16:00 97.7 80 17 122/59 (80) 97 I&O Intake and Output 02/27/20 02/28/20 19:00 07:00 Intake Total 240 ml 475.000 ml Output Total 750 ml 300 ml Balance -510 ml 175.000 ml Intake Oral 240 ml 200 ml IV Total 275.000 ml Output Urine Total 750 ml 300 ml Dressing: saturated Cardiovascular: RSR Respiratory: clear Abdomen: soft, non-tender, present bowel sounds Extremities: no tenderness, no cyanosis Laboratory Tests Test 02/27/20 18:20 Random Vancomycin Level 12.9 ug/mL Plan Problems: (1) Open wound (2) Wound infection Assessment & Plan: Patient presented on admission with a wound to his anterior Left tibia. He stated he has had wound for almost years but is not aware of how he developed wound. use to have injury to both legs for year from work but most healed. left mid shaft tibial stage 4 Full thickness wound that is malodorous .Base of wound is necrotic down to bone which has moist eschar necrotic layer. Small amt brown exudate. Darker skin tone without elevation in skin temp,fluctuance or induration noted. Dry flaky skin noted to LLE. states wound use to be much large and has contracted to this small necrotic wound now. approximately 4cm x 3cm x 1cm down to bone. chronic dry. surgical prolene suture noted as recent intervention must have been done outpatient elsewhere L foot warm to touch. Pt denied fever, or pain at site of wound. LLE washed with soap and water and moisturized. Wash left leg wound daily with NS apply dakins /peroxide gauze to wound bed, abd and wrap daily abx as per ID will follow with recs (3) JESENIA (acute kidney injury) (4) Hypertension (5) BPH (benign prostatic hyperplasia) (6) PAD (peripheral artery disease) (7) HLD (hyperlipidemia) (8) Anemia (9) Syncope (10) GI bleed (11) Episode of generalized weakness (12) Encounter for medication refill (13) Encounter for medication refill Dirk Torrez Feb 28, 2020 14:31
[2020-02-28 16:00] VITALS: BP 133/66
--- NOTE | 2020-02-28 16:13 | Nephrology Progress Note ---
Assessment/Plan Problem List: (1) End-stage renal disease (2) Wound infection (3) Open wound (4) Hemodialysis patient Plan LLE wound G- bacilli, orders reviewed for eskd, HD mwf via cath Subjective Constitutional: Reports: weakness HEENT: Reports: no symptoms Genitourinary: Reports: no symptoms Neurologic/Psychiatric: Reports: no symptoms Objective Objective Last 24 Hour Vital Signs Date Time Temp Pulse Resp B/P (MAP) Pulse Ox O2 Delivery O2 Flow Rate FiO2 02/28/20 12:00 97.0 57 21 129/77 (94) 100 02/28/20 09:04 134/71 02/28/20 09:04 134/71 02/28/20 09:04 56 134/71 02/28/20 09:00 Room Air 02/28/20 08:00 97.2 56 16 134/71 (92) 100 02/28/20 04:00 97.3 55 16 122/76 (91) 100 02/27/20 23:14 97.9 57 16 105/55 (72) 99 02/27/20 21:00 Room Air 02/27/20 19:40 98.0 69 19 117/84 (95) 98 Intake and Output 02/27/20 02/28/20 19:00 07:00 Intake Total 240 ml 475.000 ml Output Total 750 ml 300 ml Balance -510 ml 175.000 ml Intake Oral 240 ml 200 ml IV Total 275.000 ml Output Urine Total 750 ml 300 ml Laboratory Tests 02/27/20 18:20: Random Vancomycin Level 12.9 Height (Feet): 5 Height (Inches): 7.00 Weight (Pounds): 141 General Appearance: no apparent distress, alert EENT: normal ENT inspection Neck: normal alignment Cardiovascular: normal rate, regular rhythm Respiratory/Chest: lungs clear Abdomen: soft Extremities: no edema 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
--- NOTE | 2020-02-28 16:42 | NUR ---
CASE MANAGEMENT:INITIAL REVIEW 84 YR OLD MALE BIBA FROM HOME CC;SKIN RASH/ABSCESS SI;INFECTED LOWER EXTREMITY WOUND 98.4 80 22 106/56 99% ON RA K+ 3.4 CO2 33 CR 2.5 ALP 167 UA+ PROTEIN, BLOOD, RBC TIB/FIB XRAY - 1. Stable lateral convex curvature of the left tibia with similar heterogeneity. Irregularity previously seen in the cortex of the left tibia has resolved. 2. Diffuse soft tissue swelling IS;VANCOMYCIN IV CEFAZOLIN IV NA BICARB IV ADMITTED TO MED SURG 02/25/20 @ 2135 MED SURG STATUS DCP;FROM HOME CASE MANAGEMENT:REVIEW 02/28/20 SI;LLE WOUND INFECTION. JESENIA. 98.4 80 22 141/76 97% ON RA IS;CEFEPIME IV Q24 CEFAZOLIN IV Q24 FLOMAX PO QD MOBIC PO QD ZESTRIL PO QD MED SURG STATUS DCP;FROM HOME
--- NOTE | 2020-02-28 17:02 | Diagnostic Imaging Report ---
Indication: Left leg wound Technique: No IV contrast utilized, reason not stated. Spiral acquisitions obtained through the left tibia and fibula Multiplanar reconstructions were generated. Total dose length product 159 mGycm. CTDIvol(s) 3 mGy. Radiation dose was minimized using automated exposure control Comparison: Tibia and fibula MRI dated 11/12/2018 Findings: There is a small knee joint effusion. There is edema of the subcutaneous fat this is circumferential. There is also evidence of some deep compartmental edema as well. Surgical clips are seen adjacent to the medial midshaft tibia.. There is also considerable edema of the tissues immediately adjacent to the anteromedial tibia. There is a large soft tissue ulcer in the anteromedial camacho region. There is erosion of the subadjacent bone through the cortex, with some sclerosis of the subjacent medullary space. There is minimal periosteal reaction. No acute fractures. No dislocations. No significant joint effusion. There is considerable sclerosis of the midshaft tibia and medulla and cortex. The fibula is unremarkable. Impression: Large anteromedial soft tissue ulcer, with evidence of erosion through the cortex of the subjacent bone into the medulla. This definitely indicates chronic osteomyelitis. It is uncertain to what extent ongoing active acute osteomyelitis is still present. Note that similar findings are reported on prior MRI MRI may be useful for better characterization. Extensive and diffuse edema of the subcutaneous fat, with likely involvement of the deeper compartments as well. This may indicate edema due to hemodynamic derangements, or could be due to cellulitis. Correlate with clinical findings The CT scanner at [facility] is accredited by the [employer] and the scans are performed using protocols designed to limit radiation exposure to as low as reasonably achievable to attain images of sufficient resolution adequate for diagnostic evaluation.
--- NOTE | 2020-02-28 18:11 | NUR ---
INSURANCE CLINICALS/REVIEW FAXED TO [facility] [phone]
--- NOTE | 2020-02-28 19:15 | NUR ---
NURSE NOTES: RECEIVED PATIENT FROM ELAINA GALLAGHER. PATIENT IS AWAKE, AAOX4, ON ROOM AIR, NO ACUTE DISTRESS NOTED. PATIENT DENIES SOB, DENIES PAIN. WOUND DRESSINGS ON LEFT LEG INTACT AND DRY. PIV ON LEFT HAND 24G INTACT AND PATENT. PERMACATH NOTED ON RIGHT CHEST. PREVIOUS BILATERAL UPPER ARM OLD SHUNTS NOTED. AWAITING FOR DIALYSIS SCHEDULED FOR TONIGHT. BED IS LOCKED AND LOW, BED ALARMS ACTIVE, SIDE RAILS UPX2 AND CALL LIGHT IS WITHIN REACH. WILL CONTINUE TO MONITOR.
--- NOTE | 2020-02-28 19:21 | NUR ---
NURSE HAND-OFF: Important Events on Shift: No acute events during shift; CT scan of L tibia/fibia done today; New IV abx ordered received and carried outt; wound care done by wound care nurse this AM Patient Status: stable Diet: cardiac mechanical soft chopped Pending Orders: n/a Pending Results/Labs: n/a Pending MD notification: n/a Latest Vital Signs: Temperature 97.0 , Pulse 56 , B/P 133 /66 , Respiratory Rate 20 , O2 SAT 97 , Room Air, O2 Flow Rate . Vital Sign Comment: stable Latest Cleary Fall Score: 35 Fall Risk: Medium Risk Safety Measures: Call light Within Reach, Bed Alarm Zone 1, Side Rails Side Rails x2, Bed position Low and Locked. Fall Precautions: Patient Fall Education . Addendum: 02/28/20 at 1935 by Daniel Eid RN HAND-OFF: Report given to ELAINA Brooks. Endorsed POC.
[2020-02-28 20:00] VITALS: BP 155/79
--- NOTE | 2020-02-28 21:00 | NUR ---
NURSE NOTES: HEMODIALYSIS IN PROGRESS.
--- NOTE | 2020-02-28 21:14 | NUR ---
NURSE NOTES: PATIENT WAS SAFELY DISCHARGED VIA [facility], RETURNING TO [facility] WITH NO BELONGINGS. REPORT GIVEN TO [facility]. PATIENT IS IN STABLE CONDITION. VSS. Addendum: 02/28/20 at 2116 by Cecilia Shell RN PATIENT D/C WITH G-TUBE AND ESCOBEDO CATHETER. Addendum: 02/28/20 at 2120 by Cecilia Shell RN PLEASE DISREGARD. INCORRECT PATIENT.
[2020-02-28] MEDS: Hydrogen Peroxide 473ml Bottle TOPIC SCH (21:33)
--- NOTE | 2020-02-28 22:56 | NUR ---
NURSE NOTES: HEMODIALYSIS COMPLETED. 2L OUTPUT.
[2020-02-29] VITALS: BP 127/74
[2020-02-29 04:00] VITALS: BP 108/62
[2020-02-29] MEDS: Heparin 5000 units/ml inj SUBQ SCH ×3 (06:35→21:17)
--- NOTE | 2020-02-29 06:50 | NUR ---
NURSE HAND-OFF: Important Events on Shift: Hemodialysis 2L output, changed wound dressing on left leg Patient Status: Stable Diet: Cardiac, mech-soft chop Pending Orders: N/A Pending Results/Labs: CBC, BMP Pending MD notification: N/A Latest Vital Signs: Temperature 96.8 , Pulse 51 , B/P 108 /62 , Respiratory Rate 16 , O2 SAT 100 , Room Air, O2 Flow Rate . Vital Sign Comment: Stable Latest Cleary Fall Score: 35 Fall Risk: Medium Risk Safety Measures: Call light Within Reach, Bed Alarm Zone 1, Side Rails Side Rails x2, Bed position Low and Locked. Fall Precautions: Implemented Patient Fall Education
--- NOTE | 2020-02-29 07:06 | NUR ---
HAND-OFF: Report given to ELAINA Quick.
[2020-02-29 07:37] LABS: EOSINOPHILS % (AUTO) 2.5 % (0.0-3.0); HEMATOCRIT 40.7 % (42.0-52.0); HEMOGLOBIN 13.2 G/DL (14.2-18.0); LYMPHOCYTES % (AUTO) 44.2 % (20.0-45.0); MEAN CORPUSCULAR VOLUME 94 FL (80-99); MONOCYTES % (AUTO) 10.8 % (1.0-10.0); NEUTROPHILS % (AUTO) 40.5 % (45.0-75.0); PLATELET COUNT 165 K/UL (150-450); RED BLOOD COUNT 4.34 M/UL (4.70-6.10); RED CELL DISTRIBUTION WIDTH 15.1 % (11.6-14.8); WHITE BLOOD COUNT 3.6 K/UL (4.8-10.8)
[2020-02-29 08:00] VITALS: BP 106/57
--- NOTE | 2020-02-29 08:03 | NUR ---
NURSE NOTES: Report received from Cecilia, RN. Patient received awake, alert and oriented. Seen lying in bed, currently on room air no s/sx of SOB/Distress, no c/o any pain or discomfort. IV site located on LH gauge 24, asymptomatic, inplace and intact. Bed placed on lowest and locked, call light placed within reach and will continue to monitor.
--- NOTE | 2020-02-29 08:09 | General Progress Note ---
Subjective Allergies: Coded Allergies: No Known Allergies (Unverified , 08/05/14) Subjective care noted and reviewed surgery noted ID noted Objective Last 24 Hour Vital Signs Date Time Temp Pulse Resp B/P (MAP) Pulse Ox O2 Delivery O2 Flow Rate FiO2 02/29/20 04:00 96.8 51 16 108/62 (77) 100 02/29/20 00:00 97.3 59 17 127/74 (91) 99 02/28/20 21:00 Room Air 02/28/20 20:00 98.5 56 18 155/79 (104) 98 02/28/20 16:00 97.0 56 20 133/66 (88) 97 02/28/20 12:00 97.0 57 21 129/77 (94) 100 02/28/20 09:04 134/71 02/28/20 09:04 134/71 02/28/20 09:04 56 134/71 02/28/20 09:00 Room Air Intake and Output 02/28/20 02/29/20 19:00 07:00 Intake Total 55 ml Output Total 460 ml 4000 ml Balance -405 ml -4000 ml IV Total 55 ml Output Urine Total 460 ml Hemodialysis UF 4000 ml Laboratory Tests 02/29/20 06:50: White Blood Count 3.6L, Red Blood Count 4.34L, Hemoglobin 13.2L, Hematocrit 40.7L, Mean Corpuscular Volume 94, Mean Corpuscular Hemoglobin 30.4, Mean Corpuscular Hemoglobin Concent 32.5, Red Cell Distribution Width 15.1H, Platelet Count 165, Mean Platelet Volume 7.8, Neutrophils (%) (Auto) 40.5L, Lymphocytes (%) (Auto) 44.2, Monocytes (%) (Auto) 10.8H, Eosinophils (%) (Auto) 2.5, Basophils (%) (Auto) 2.0, Sodium Level [Pending], Potassium Level [Pending], Chloride Level [Pending], Carbon Dioxide Level [Pending], Blood Urea Nitrogen [Pending], Creatinine [Pending], Estimat Glomerular Filtration Rate [Pending], Glucose Level [Pending], Calcium Level [Pending], Total Bilirubin [Pending], Aspartate Amino Transf (AST/SGOT) [Pending], Alanine Aminotransferase (ALT/SGPT) [Pending], Alkaline Phosphatase [Pending], Total Protein [Pending], Albumin [Pending], Globulin [Pending] Height (Feet): 5 Height (Inches): 7.00 Weight (Pounds): 141 Objective WDWN NAD clear breath sounds bilaterally without rhonchi or wheeze [id number] without MRG NABS nontender no HSM no CCE nonfocal weak leg wound noted Assessment/Plan Assessment/Plan: Impression: Wound infection Chronic left lower extremity wound Previous polio Chronic kidney disease Hypertension severe PCM chronic osteomyelitis Plan Continue IV AB- ID recommendations and tank terminal gauger IV antibiotics Wound nurse and MD Renal for HD Surgery noted 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
--- NOTE | 2020-02-29 08:27 | NUR ---
CASE MANAGEMENT:REVIEW SI;LLE NON-HEALING WOUND. OSTEOMYELITIS. 98.5 51 18 155/79 97% ON RA IS;CEFEPIME IV Q24 CEFAZOLIN IV Q24 PROTONIX IV QD HEPARIN SUBQ Q8 MED SURG STATUS DCP;FROM HOME
[2020-02-29 08:48] LABS: ALBUMIN 2.5 G/DL (3.4-5.0); ALBUMIN/GLOBULIN RATIO 0.7 (1.0-2.7); BILIRUBIN,TOTAL 0.2 MG/DL (0.2-1.0); CALCIUM 8.5 MG/DL (8.5-10.1); POTASSIUM 3.7 MMOL/L (3.5-5.1)
[2020-02-29] MEDS: Atenolol 25mg tab ORAL SCH (09:00)
[2020-02-29] MEDS: Lisinopril 10mg tab ORAL SCH (09:00)
[2020-02-29] MEDS: Tamsulosin 0.4mg cap ORAL SCH (09:11)
[2020-02-29] MEDS: Docusate 100mg cap ORAL SCH ×2 (09:11→17:37)
[2020-02-29] MEDS: Pantoprazole Inj IVP SCH (09:12)
[2020-02-29] MEDS: Hydrogen Peroxide 473ml Bottle TOPIC SCH (09:16)
--- NOTE | 2020-02-29 11:10 | Infectious Diseases Prog Note ---
Assessment/Plan Assessment/Plan antibiotics : cefepime A 1. left leg osteomyelitis with gram negative rods 2. hypertension 3. renal failure improving 4. s/p maggots 5. s/p polio P 1. continue cefepime 2. will follow up cultures Subjective Constitutional: Denies: fever, chills Respiratory: Denies: shortness of breath, dry cough Gastrointestinal/Abdominal: Denies: nausea, vomiting, diarrhea Musculoskeletal: Denies: pain Allergies: Coded Allergies: No Known Allergies (Unverified , 08/05/14) Objective Last 24 Hour Vital Signs Date Time Temp Pulse Resp B/P (MAP) Pulse Ox O2 Delivery O2 Flow Rate FiO2 02/29/20 09:00 106/57 02/29/20 09:00 58 106/57 02/29/20 04:00 96.8 51 16 108/62 (77) 100 02/29/20 00:00 97.3 59 17 127/74 (91) 99 02/28/20 21:00 Room Air 02/28/20 20:00 98.5 56 18 155/79 (104) 98 02/28/20 16:00 97.0 56 20 133/66 (88) 97 02/28/20 12:00 97.0 57 21 129/77 (94) 100 Height (Feet): 5 Height (Inches): 7.00 Weight (Pounds): 141 Respiratory/Chest: lungs clear Cardiovascular: normal rate, regular rhythm, no gallop/murmur Abdomen: soft, non tender Extremities: no edema, other - left leg in dressings Laboratory Tests Test 02/29/20 06:50 White Blood Count 3.6 K/UL (4.8-10.8) L Red Blood Count 4.34 M/UL (4.70-6.10) L Hemoglobin 13.2 G/DL (14.2-18.0) L Hematocrit 40.7 % (42.0-52.0) L Mean Corpuscular Volume 94 FL (80-99) Mean Corpuscular Hemoglobin 30.4 PG (27.0-31.0) Mean Corpuscular Hemoglobin Concent 32.5 G/DL (32.0-36.0) Red Cell Distribution Width 15.1 % (11.6-14.8) H Platelet Count 165 K/UL (150-450) Mean Platelet Volume 7.8 FL (6.5-10.1) Neutrophils (%) (Auto) 40.5 % (45.0-75.0) L Lymphocytes (%) (Auto) 44.2 % (20.0-45.0) Monocytes (%) (Auto) 10.8 % (1.0-10.0) H Eosinophils (%) (Auto) 2.5 % (0.0-3.0) Basophils (%) (Auto) 2.0 % (0.0-2.0) Sodium Level 140 MMOL/L (136-145) Potassium Level 3.7 MMOL/L (3.5-5.1) Chloride Level 104 MMOL/L (98-107) Carbon Dioxide Level 29 MMOL/L (21-32) Anion Gap 7 mmol/L (5-15) Blood Urea Nitrogen 19 mg/dL (7-18) H Creatinine 3.0 MG/DL (0.55-1.30) H Estimat Glomerular Filtration Rate 24.4 mL/min (>60) Glucose Level 80 MG/DL (74-106) Calcium Level 8.5 MG/DL (8.5-10.1) Total Bilirubin 0.2 MG/DL (0.2-1.0) Aspartate Amino Transf (AST/SGOT) 19 U/L (15-37) Alanine Aminotransferase (ALT/SGPT) 9 U/L (12-78) L Alkaline Phosphatase 128 U/L (46-116) H Total Protein 5.9 G/DL (6.4-8.2) L Albumin 2.5 G/DL (3.4-5.0) L Globulin 3.4 g/dL Albumin/Globulin Ratio 0.7 (1.0-2.7) L Current Medications Medications (Trade) Dose Ordered Sig/Yesenia Route PRN Reason Start Time Stop Time Status Last Admin Dose Admin Acetaminophen (Tylenol) 650 mg Q6H PRN ORAL For Pain 02/25/20 23:30 03/26/20 23:29 Atenolol (Tenormin) 25 mg DAILY ORAL 02/26/20 09:00 03/27/20 08:59 02/28/20 09:04 Atorvastatin Calcium (Lipitor) 10 mg BEDTIME ORAL 02/26/20 21:00 05/26/20 20:59 02/28/20 20:48 Cefepime HCl 500 mg/Dextrose 55 ml @ 110 mls/hr Q24H IV 02/29/20 13:00 03/07/20 12:59 Docusate Sodium (Colace) 100 mg BID ORAL 02/26/20 09:00 03/27/20 08:59 02/29/20 09:11 Gabapentin (Neurontin) 100 mg QHS ORAL 02/26/20 21:00 03/27/20 20:59 02/28/20 20:48 Heparin Sodium (Porcine) (Heparin 5000 units/ml) 5,000 units EVERY 8 HOURS SUBQ 02/26/20 06:00 04/11/20 05:59 02/29/20 06:35 Hydrogen Peroxide (Hydrogen Peroxide) 1 applic DAILY TOPIC 02/28/20 20:00 05/28/20 19:59 02/29/20 09:16 Ipratropium [place] (Atrovent) 500 mcg Q6HR PRN HHN Shortness of Breath 02/25/20 22:45 03/01/20 22:44 Lisinopril (ZestriL) 10 mg DAILY ORAL 02/26/20 09:00 03/27/20 08:59 02/28/20 09:04 Meloxicam (Mobic) 7.5 mg DAILY ORAL 02/26/20 09:00 03/27/20 08:59 02/29/20 09:11 Pantoprazole (Protonix) 40 mg DAILY IVP 02/26/20 09:00 03/27/20 08:59 02/29/20 09:12 Tamsulosin HCl (Flomax) 0.4 mg DAILY ORAL 02/26/20 09:00 03/27/20 08:59 02/29/20 09:11 Matthew Neely MD Feb 29, 2020 11:10
[2020-02-29 12:00] VITALS: BP_SYST 106; BP_SYST 112; BP_DIAS 57; BP_DIAS 62
[2020-02-29] MEDS ORDERED: Cefepime 500mg/D5W 55ml IV SCH ×2 (13:00)
--- NOTE | 2020-02-29 14:31 | Surgery Progress Note ---
Surgery Progress Note Subjective Additional Comments CT noted local wound care going well feels better no n/v/f/c Objective Last 24 Hour Vital Signs Date Time Temp Pulse Resp B/P (MAP) Pulse Ox O2 Delivery O2 Flow Rate FiO2 02/29/20 12:00 97.7 54 18 112/62 (79) 96 02/29/20 09:00 Room Air 02/29/20 09:00 106/57 02/29/20 09:00 58 106/57 02/29/20 08:00 97.5 58 18 106/57 (73) 97 02/29/20 04:00 96.8 51 16 108/62 (77) 100 02/29/20 00:00 97.3 59 17 127/74 (91) 99 02/28/20 21:00 Room Air 02/28/20 20:00 98.5 56 18 155/79 (104) 98 02/28/20 16:00 97.0 56 20 133/66 (88) 97 I&O Intake and Output 02/28/20 02/29/20 19:00 07:00 Intake Total 55 ml Output Total 460 ml 4000 ml Balance -405 ml -4000 ml IV Total 55 ml Output Urine Total 460 ml Hemodialysis UF 4000 ml Dressing: saturated Wound: clean Cardiovascular: RSR Respiratory: clear Abdomen: soft, non-tender, present bowel sounds Extremities: edema, no tenderness, no cyanosis, other Laboratory Tests Test 02/29/20 06:50 White Blood Count 3.6 K/UL (4.8-10.8) L Red Blood Count 4.34 M/UL (4.70-6.10) L Hemoglobin 13.2 G/DL (14.2-18.0) L Hematocrit 40.7 % (42.0-52.0) L Mean Corpuscular Volume 94 FL (80-99) Mean Corpuscular Hemoglobin 30.4 PG (27.0-31.0) Mean Corpuscular Hemoglobin Concent 32.5 G/DL (32.0-36.0) Red Cell Distribution Width 15.1 % (11.6-14.8) H Platelet Count 165 K/UL (150-450) Mean Platelet Volume 7.8 FL (6.5-10.1) Neutrophils (%) (Auto) 40.5 % (45.0-75.0) L Lymphocytes (%) (Auto) 44.2 % (20.0-45.0) Monocytes (%) (Auto) 10.8 % (1.0-10.0) H Eosinophils (%) (Auto) 2.5 % (0.0-3.0) Basophils (%) (Auto) 2.0 % (0.0-2.0) Sodium Level 140 MMOL/L (136-145) Potassium Level 3.7 MMOL/L (3.5-5.1) Chloride Level 104 MMOL/L (98-107) Carbon Dioxide Level 29 MMOL/L (21-32) Anion Gap 7 mmol/L (5-15) Blood Urea Nitrogen 19 mg/dL (7-18) H Creatinine 3.0 MG/DL (0.55-1.30) H Estimat Glomerular Filtration Rate 24.4 mL/min (>60) Glucose Level 80 MG/DL (74-106) Calcium Level 8.5 MG/DL (8.5-10.1) Total Bilirubin 0.2 MG/DL (0.2-1.0) Aspartate Amino Transf (AST/SGOT) 19 U/L (15-37) Alanine Aminotransferase (ALT/SGPT) 9 U/L (12-78) L Alkaline Phosphatase 128 U/L (46-116) H Total Protein 5.9 G/DL (6.4-8.2) L Albumin 2.5 G/DL (3.4-5.0) L Globulin 3.4 g/dL Albumin/Globulin Ratio 0.7 (1.0-2.7) L Plan Problems: (1) Open wound (2) Wound infection Assessment & Plan: Patient presented on admission with a wound to his anterior Left tibia. He stated he has had wound for almost years but is not aware of how he developed wound. use to have injury to both legs for year from work but most healed. left mid shaft tibial stage 4 Full thickness wound that is malodorous .Base of wound is necrotic down to bone which has moist eschar necrotic layer. Small amt brown exudate. Darker skin tone without elevation in skin temp,fluctuance or induration noted. Dry flaky skin noted to LLE. states wound use to be much large and has contracted to this small necrotic wound now. approximately 4cm x 3cm x 1cm down to bone. chronic dry. surgical prolene suture noted as recent intervention must have been done outpatient elsewhere L foot warm to touch. Pt denied fever, or pain at site of wound. LLE washed with soap and water and moisturized. Wash left leg wound daily with NS apply dakins /peroxide gauze to wound bed, abd and wrap daily abx as per ID will follow with recs Large anteromedial soft tissue ulcer, with evidence of erosion through the cortex of the subjacent bone into the medulla. This definitely indicates chronic osteomyelitis. It is uncertain to what extent ongoing active acute osteomyelitis is still present. Note that similar findings are reported on prior MRI MRI may be useful for better characterization. Extensive and diffuse edema of the subcutaneous fat, with likely involvement of the deeper compartments as well. This may indicate edema due to hemodynamic derangements, or could be due to cellulitis. Correlate with clinical findings (3) JESENIA (acute kidney injury) (4) Hypertension (5) BPH (benign prostatic hyperplasia) (6) PAD (peripheral artery disease) (7) HLD (hyperlipidemia) (8) Anemia (9) Syncope (10) GI bleed (11) Episode of generalized weakness (12) Encounter for medication refill (13) Encounter for medication refill Dirk Torrez Feb 29, 2020 14:31
[2020-02-29 16:00] VITALS: BP 109/59
--- NOTE | 2020-02-29 19:28 | NUR ---
NURSE NOTES: Patient awake in bed, alert and oriented x4, on room air, no complaints at this time. Instructed to use call light for assistance. Bed in lowest and lock engaged. Will continue plan of care.
--- NOTE | 2020-02-29 19:38 | NUR ---
NURSE HAND-OFF: Important Events on Shift:ATB [place] Patient Status: stable Diet: regular Pending Orders: n/a Pending Results/Labs:n/a Pending MD notification:n/a Latest Vital Signs: Temperature 97.4 , Pulse 54 , B/P 109 /59 , Respiratory Rate 18 , O2 SAT 100 , Room Air, O2 Flow Rate . Vital Sign Comment: stable Latest Cleary Fall Score: 35 Fall Risk: Medium Risk Safety Measures: Call light Within Reach, Bed Alarm Zone 1, Side Rails Side Rails x2, Bed position Low and Locked. Fall Precautions: Patient Fall Education Report given to ELAINA Cordero.
--- NOTE | 2020-02-29 19:50 | Nephrology Progress Note ---
Assessment/Plan Problem List: (1) End-stage renal disease (2) Wound infection (3) Open wound (4) Hemodialysis patient (5) Osteomyelitis Plan LLE wound G- bacilli, orders reviewed for eskd, HD mwf via cath Subjective Constitutional: Reports: weakness HEENT: Reports: no symptoms Genitourinary: Reports: no symptoms Neurologic/Psychiatric: Reports: pre-existing deficit Objective Objective Last 24 Hour Vital Signs Date Time Temp Pulse Resp B/P (MAP) Pulse Ox O2 Delivery O2 Flow Rate FiO2 02/29/20 16:00 97.4 54 18 109/59 (76) 100 02/29/20 12:00 97.7 54 18 112/62 (79) 96 02/29/20 09:00 Room Air 02/29/20 09:00 106/57 02/29/20 09:00 58 106/57 02/29/20 08:00 97.5 58 18 106/57 (73) 97 02/29/20 04:00 96.8 51 16 108/62 (77) 100 02/29/20 00:00 97.3 59 17 127/74 (91) 99 02/28/20 21:00 Room Air 02/28/20 20:00 98.5 56 18 155/79 (104) 98 Intake and Output 02/28/20 02/29/20 19:00 07:00 Intake Total 55 ml Output Total 460 ml 4000 ml Balance -405 ml -4000 ml IV Total 55 ml Output Urine Total 460 ml Hemodialysis UF 4000 ml Laboratory Tests 02/29/20 06:50: White Blood Count 3.6L, Red Blood Count 4.34L, Hemoglobin 13.2L, Hematocrit 40.7L, Mean Corpuscular Volume 94, Mean Corpuscular Hemoglobin 30.4, Mean Corpuscular Hemoglobin Concent 32.5, Red Cell Distribution Width 15.1H, Platelet Count 165, Mean Platelet Volume 7.8, Neutrophils (%) (Auto) 40.5L, Lymphocytes (%) (Auto) 44.2, Monocytes (%) (Auto) 10.8H, Eosinophils (%) (Auto) 2.5, Basophils (%) (Auto) 2.0, Sodium Level 140, Potassium Level 3.7, Chloride Level 104, Carbon Dioxide Level 29, Anion Gap 7, Blood Urea Nitrogen 19H, Creatinine 3.0H, Estimat Glomerular Filtration Rate 24.4, Glucose Level 80, Calcium Level 8.5, Total Bilirubin 0.2, Aspartate Amino Transf (AST/SGOT) 19, Alanine Aminotransferase (ALT/SGPT) 9L, Alkaline Phosphatase 128H, Total Protein 5.9L, Albumin 2.5L, Globulin 3.4, Albumin/Globulin Ratio 0.7L Height (Feet): 5 Height (Inches): 7.00 Weight (Pounds): 141 General Appearance: no apparent distress EENT: normal ENT inspection Neck: normal alignment Cardiovascular: regular rhythm Respiratory/Chest: lungs clear Abdomen: no organomegaly Extremities: no edema, other - dressing LLE Neurologic: 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
[2020-02-29 20:00] VITALS: BP 115/63
[2020-03-01] VITALS: BP 123/63
[2020-03-01 04:00] VITALS: BP 125/58
[2020-03-01] MEDS: Heparin 5000 units/ml inj SUBQ SCH ×3 (06:24→21:35)
--- NOTE | 2020-03-01 06:54 | NUR ---
NURSE HAND-OFF: Important Events on Shift:Dressing changed on left lower leg Patient Status:Stable Diet: Cardiac mechanical soft Pending Orders:am labs Pending Results/Labs:CBC, bmp Pending MD notification: Latest Vital Signs: Temperature 97.2 , Pulse 53 , B/P 125 /58 , Respiratory Rate 16 , O2 SAT 98 , Room Air, O2 Flow Rate . Vital Sign Comment: Latest Cleary Fall Score: 35 Fall Risk: Medium Risk Safety Measures: Call light Within Reach, Bed Alarm Zone 1, Side Rails Side Rails x2, Bed position Low and Locked. Fall Precautions: Patient Fall Education
--- NOTE | 2020-03-01 07:28 | NUR ---
HAND-OFF: Report given to ELAINA Saini
--- NOTE | 2020-03-01 07:42 | NUR ---
NURSE NOTES: Report received from ELAINA Cordero. Patient in bed, awake, alert and oriented x 4, verbal and able to make needs known. No SOB, bed in lowest position with breaks engaged and alarm on, denies any pain at this time, IV line intact on left hand, on room air, will continue to monitor and proceed with plan of care, call light within reach.
[2020-03-01 08:00] VITALS: BP 130/73
[2020-03-01 08:13] LABS: HEMATOCRIT 39.4 % (42.0-52.0); HEMOGLOBIN 12.6 G/DL (14.2-18.0); MEAN CORPUSCULAR VOLUME 94 FL (80-99); PLATELET COUNT 159 K/UL (150-450); RED BLOOD COUNT 4.18 M/UL (4.70-6.10); RED CELL DISTRIBUTION WIDTH 14.8 % (11.6-14.8); WHITE BLOOD COUNT 3.3 K/UL (4.8-10.8)
[2020-03-01 08:22] LABS: BLOOD UREA NITROGEN 21 mg/dL (7-18); CALCIUM 8.9 MG/DL (8.5-10.1); CHLORIDE 107 MMOL/L (98-107); CREATININE 3.4 MG/DL (0.55-1.30); POTASSIUM 4.4 MMOL/L (3.5-5.1); SODIUM 139 MMOL/L (136-145)
[2020-03-01 08:29] LABS: CARBON DIOXIDE 28 MMOL/L (21-32)
[2020-03-01] MEDS: Atenolol 25mg tab ORAL SCH (08:41)
[2020-03-01] MEDS: Hydrogen Peroxide 473ml Bottle TOPIC SCH (08:41)
[2020-03-01] MEDS: Tamsulosin 0.4mg cap ORAL SCH (08:41)
[2020-03-01] MEDS: Lisinopril 10mg tab ORAL SCH (08:41)
[2020-03-01] MEDS: Docusate 100mg cap ORAL SCH ×2 (08:42→17:35)
[2020-03-01] MEDS ORDERED: Heparin Sod 1000 units/ml 10ml IV PRN (09:00)
--- NOTE | 2020-03-01 09:57 | General Progress Note ---
Subjective Allergies: Coded Allergies: No Known Allergies (Unverified , 08/05/14) Subjective care noted and reviewed surgery noted ID noted Objective Last 24 Hour Vital Signs Date Time Temp Pulse Resp B/P (MAP) Pulse Ox O2 Delivery O2 Flow Rate FiO2 03/01/20 09:00 Room Air 03/01/20 08:41 130/73 03/01/20 08:41 57 130/73 03/01/20 08:00 96.8 57 16 130/73 (92) 99 03/01/20 04:00 97.2 53 16 125/58 (80) 98 03/01/20 00:00 97.9 57 16 123/63 (83) 99 02/29/20 21:00 Room Air 02/29/20 20:00 98.1 54 16 115/63 (80) 98 02/29/20 16:00 97.4 54 18 109/59 (76) 100 02/29/20 12:00 97.7 54 18 112/62 (79) 96 Intake and Output 02/29/20 03/01/20 19:00 07:00 Intake Total 1200 ml 200 ml Output Total 800 ml 200 ml Balance 400 ml 0 ml Intake Oral 1200 ml 200 ml Output Urine Total 800 ml 200 ml # Voids 2 Laboratory Tests 03/01/20 07:15: White Blood Count 3.3L, Red Blood Count 4.18L, Hemoglobin 12.6L, Hematocrit 39.4L, Mean Corpuscular Volume 94, Mean Corpuscular Hemoglobin 30.1, Mean Corpuscular Hemoglobin Concent 31.9L, Red Cell Distribution Width 14.8, Platelet Count 159, Mean Platelet Volume 7.1, Neutrophils (%) (Auto) , Lymphocytes (%) (Auto) , Monocytes (%) (Auto) , Eosinophils (%) (Auto) , Basophils (%) (Auto) , Differential Total Cells Counted 100, Neutrophils % (Manual) 47, Lymphocytes % (Manual) 45, Monocytes % (Manual) 4, Eosinophils % (Manual) 4H, Basophils % (Manual) 0, Band Neutrophils 0, Platelet Estimate Adequate, Platelet Morphology Normal, Red Blood Cell Morphology Normal, Sodium Level 139, Potassium Level 4.4, Chloride Level 107, Carbon Dioxide Level 28, Blood Urea Nitrogen 21H, Creatinine 3.4H, Estimat Glomerular Filtration Rate 21.1, Glucose Level 84, Calcium Level 8.9 Height (Feet): 5 Height (Inches): 7.00 Weight (Pounds): 141 Objective WDWN NAD clear breath sounds bilaterally without rhonchi or wheeze [id number] without MRG NABS nontender no HSM no CCE nonfocal weak leg wound noted Assessment/Plan Assessment/Plan: Impression: Wound infection Chronic left lower extremity wound Previous polio Chronic kidney disease Hypertension severe PCM chronic osteomyelitis Plan Continue IV AB- ID recommendations and retirement IV antibiotics ?PICC Wound nurse and MD Renal for HD 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
--- NOTE | 2020-03-01 11:01 | Infectious Diseases Prog Note ---
Assessment/Plan Assessment/Plan antibiotics : cefepime A 1. left leg osteomyelitis with providencia, gram positive cocci 2. hypertension 3. renal failure 4. s/p maggots 5. s/p polio P 1. d/c cefepime 2. start linezolid,ceftriaxone 3. will follow up cultures Subjective Constitutional: Denies: fever, chills Respiratory: Denies: shortness of breath, dry cough Gastrointestinal/Abdominal: Denies: nausea, vomiting, diarrhea Musculoskeletal: Denies: pain Allergies: Coded Allergies: No Known Allergies (Unverified , 08/05/14) Objective Last 24 Hour Vital Signs Date Time Temp Pulse Resp B/P (MAP) Pulse Ox O2 Delivery O2 Flow Rate FiO2 03/01/20 09:00 Room Air 03/01/20 08:41 130/73 03/01/20 08:41 57 130/73 03/01/20 08:00 96.8 57 16 130/73 (92) 99 03/01/20 04:00 97.2 53 16 125/58 (80) 98 03/01/20 00:00 97.9 57 16 123/63 (83) 99 02/29/20 21:00 Room Air 02/29/20 20:00 98.1 54 16 115/63 (80) 98 02/29/20 16:00 97.4 54 18 109/59 (76) 100 02/29/20 12:00 97.7 54 18 112/62 (79) 96 Height (Feet): 5 Height (Inches): 7.00 Weight (Pounds): 141 Respiratory/Chest: lungs clear Cardiovascular: normal rate, regular rhythm, no gallop/murmur Abdomen: soft, non tender Extremities: no edema, other - left leg in dressings Laboratory Tests Test 03/01/20 07:15 White Blood Count 3.3 K/UL (4.8-10.8) L Red Blood Count 4.18 M/UL (4.70-6.10) L Hemoglobin 12.6 G/DL (14.2-18.0) L Hematocrit 39.4 % (42.0-52.0) L Mean Corpuscular Volume 94 FL (80-99) Mean Corpuscular Hemoglobin 30.1 PG (27.0-31.0) Mean Corpuscular Hemoglobin Concent 31.9 G/DL (32.0-36.0) L Red Cell Distribution Width 14.8 % (11.6-14.8) Platelet Count 159 K/UL (150-450) Mean Platelet Volume 7.1 FL (6.5-10.1) Neutrophils (%) (Auto) % (45.0-75.0) Lymphocytes (%) (Auto) % (20.0-45.0) Monocytes (%) (Auto) % (1.0-10.0) Eosinophils (%) (Auto) % (0.0-3.0) Basophils (%) (Auto) % (0.0-2.0) Differential Total Cells Counted 100 Neutrophils % (Manual) 47 % (45-75) Lymphocytes % (Manual) 45 % (20-45) Monocytes % (Manual) 4 % (1-10) Eosinophils % (Manual) 4 % (0-3) H Basophils % (Manual) 0 % (0-2) Band Neutrophils 0 % (0-8) Platelet Estimate Adequate Platelet Morphology Normal Red Blood Cell Morphology Normal Sodium Level 139 MMOL/L (136-145) Potassium Level 4.4 MMOL/L (3.5-5.1) Chloride Level 107 MMOL/L (98-107) Carbon Dioxide Level 28 MMOL/L (21-32) Blood Urea Nitrogen 21 mg/dL (7-18) H Creatinine 3.4 MG/DL (0.55-1.30) H Estimat Glomerular Filtration Rate 21.1 mL/min (>60) Glucose Level 84 MG/DL (74-106) Calcium Level 8.9 MG/DL (8.5-10.1) Current Medications Medications (Trade) Dose Ordered Sig/Yesenia Route PRN Reason Start Time Stop Time Status Last Admin Dose Admin Acetaminophen (Tylenol) 650 mg Q6H PRN ORAL For Pain 02/25/20 23:30 03/26/20 23:29 Atenolol (Tenormin) 25 mg DAILY ORAL 02/26/20 09:00 03/27/20 08:59 03/01/20 08:41 Atorvastatin Calcium (Lipitor) 10 mg BEDTIME ORAL 02/26/20 21:00 05/26/20 20:59 02/29/20 21:08 Cefepime HCl 500 mg/Dextrose 55 ml @ 110 mls/hr Q24H IV 02/29/20 13:00 03/07/20 12:59 02/29/20 13:48 Docusate Sodium (Colace) 100 mg BID ORAL 02/26/20 09:00 03/27/20 08:59 03/01/20 08:42 Gabapentin (Neurontin) 100 mg QHS ORAL 02/26/20 21:00 03/27/20 20:59 02/29/20 21:08 Heparin Sodium (Porcine) (Heparin 5000 units/ml) 5,000 units EVERY 8 HOURS SUBQ 02/26/20 06:00 04/11/20 05:59 03/01/20 06:24 Heparin Sodium (Porcine) (Heparin Sod 1000 units/ml 10ml) 2,000 unit ONCE PRN IV dialysis 03/01/20 09:00 03/01/20 23:59 Hydrogen Peroxide (Hydrogen Peroxide) 1 applic DAILY TOPIC 02/28/20 20:00 05/28/20 19:59 03/01/20 08:41 Ipratropium Perry (Atrovent) 500 mcg Q6HR PRN HHN Shortness of Breath 02/25/20 22:45 03/01/20 22:44 Lisinopril (ZestriL) 10 mg DAILY ORAL 02/26/20 09:00 03/27/20 08:59 03/01/20 08:41 Meloxicam (Mobic) 7.5 mg DAILY ORAL 02/26/20 09:00 03/27/20 08:59 03/01/20 08:41 Pantoprazole (Protonix) 40 mg DAILY ORAL 03/01/20 09:00 03/31/20 08:59 03/01/20 08:41 Sodium Chloride 1,000 ml @ 500 mls/hr Q2H PRN IVLG sbp<90 during hd 03/01/20 09:00 03/01/20 23:59 Tamsulosin HCl (Flomax) 0.4 mg DAILY ORAL 02/26/20 09:00 03/27/20 08:59 03/01/20 08:41 Matthew Neely MD Mar 01, 2020 11:01
[2020-03-01] MEDS: cefTRIAXone 1 GM in D5W 55 ML IVPB SCH (11:42)
[2020-03-01 12:00] VITALS: BP 120/57
--- NOTE | 2020-03-01 15:25 | Nephrology Progress Note ---
Assessment/Plan Problem List: (1) End-stage renal disease (2) Wound infection (3) Open wound (4) Hemodialysis patient (5) Osteomyelitis Plan LLE wound G- bacilli, orders reviewed for eskd, HD mwf via cath, hopefully can get detention antibiotics at dialysis and avoid picc Subjective Constitutional: Reports: weakness HEENT: Reports: no symptoms Genitourinary: Reports: no symptoms Neurologic/Psychiatric: Reports: pre-existing deficit Objective Objective Last 24 Hour Vital Signs Date Time Temp Pulse Resp B/P (MAP) Pulse Ox O2 Delivery O2 Flow Rate FiO2 03/01/20 12:00 97.5 61 18 120/57 (78) 99 03/01/20 09:00 Room Air 03/01/20 08:41 130/73 03/01/20 08:41 57 130/73 03/01/20 08:00 96.8 57 16 130/73 (92) 99 03/01/20 04:00 97.2 53 16 125/58 (80) 98 03/01/20 00:00 97.9 57 16 123/63 (83) 99 02/29/20 21:00 Room Air 02/29/20 20:00 98.1 54 16 115/63 (80) 98 02/29/20 16:00 97.4 54 18 109/59 (76) 100 Intake and Output 02/29/20 03/01/20 19:00 07:00 Intake Total 1200 ml 200 ml Output Total 800 ml 200 ml Balance 400 ml 0 ml Intake Oral 1200 ml 200 ml Output Urine Total 800 ml 200 ml # Voids 2 Laboratory Tests 03/01/20 07:15: White Blood Count 3.3L, Red Blood Count 4.18L, Hemoglobin 12.6L, Hematocrit 39.4L, Mean Corpuscular Volume 94, Mean Corpuscular Hemoglobin 30.1, Mean Corpuscular Hemoglobin Concent 31.9L, Red Cell Distribution Width 14.8, Platelet Count 159, Mean Platelet Volume 7.1, Neutrophils (%) (Auto) , Lymphocytes (%) (Auto) , Monocytes (%) (Auto) , Eosinophils (%) (Auto) , Basophils (%) (Auto) , Differential Total Cells Counted 100, Neutrophils % (Manual) 47, Lymphocytes % (Manual) 45, Monocytes % (Manual) 4, Eosinophils % (Manual) 4H, Basophils % (Manual) 0, Band Neutrophils 0, Platelet Estimate Adequate, Platelet Morphology Normal, Red Blood Cell Morphology Normal, Sodium Level 139, Potassium Level 4.4, Chloride Level 107, Carbon Dioxide Level 28, Blood Urea Nitrogen 21H, Creatinine 3.4H, Estimat Glomerular Filtration Rate 21.1, Glucose Level 84, Calcium Level 8.9 Height (Feet): 5 Height (Inches): 7.00 Weight (Pounds): 141 General Appearance: no apparent distress, alert EENT: normal ENT inspection Neck: normal alignment Cardiovascular: regular rhythm Respiratory/Chest: lungs clear Abdomen: non tender, soft Extremities: no edema 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
--- NOTE | 2020-03-01 15:25 | NUR ---
*-DISCHARGE PLANNING*-* PATIENT IS SERVICED WITH: [facility] P: [phone] F: [phone] ~~~~~~~~CLINICALS FAXED~~~~~~~~~~~~~~
[2020-03-01 16:00] VITALS: BP 109/62
--- NOTE | 2020-03-01 16:17 | Nephrology Progress Note ---
Subjective Subjective See records. Identified this patient of mine. [place] [facility] [place] Objective Last 24 Hour Vital Signs Date Time Temp Pulse Resp B/P (MAP) Pulse Ox O2 Delivery O2 Flow Rate FiO2 03/01/20 16:00 97.7 60 18 109/62 (78) 96 03/01/20 12:00 97.5 61 18 120/57 (78) 99 03/01/20 09:00 Room Air 03/01/20 08:41 130/73 03/01/20 08:41 57 130/73 03/01/20 08:00 96.8 57 16 130/73 (92) 99 03/01/20 04:00 97.2 53 16 125/58 (80) 98 03/01/20 00:00 97.9 57 16 123/63 (83) 99 02/29/20 21:00 Room Air 02/29/20 20:00 98.1 54 16 115/63 (80) 98 Intake and Output 02/29/20 03/01/20 19:00 07:00 Intake Total 1200 ml 200 ml Output Total 800 ml 200 ml Balance 400 ml 0 ml Intake Oral 1200 ml 200 ml Output Urine Total 800 ml 200 ml # Voids 2 Laboratory Tests 03/01/20 07:15: White Blood Count 3.3L, Red Blood Count 4.18L, Hemoglobin 12.6L, Hematocrit 39.4 L, Mean Corpuscular Volume 94, Mean Corpuscular Hemoglobin 30.1, Mean Corpuscular Hemoglobin Concent 31.9L, Red Cell Distribution Width 14.8, Platelet Count 159, Mean Platelet Volume 7.1, Neutrophils (%) (Auto) , Lymphocytes (%) (Auto) , Monocytes (%) (Auto) , Eosinophils (%) (Auto) , Basophils (%) (Auto) , Differential Total Cells Counted 100, Neutrophils % (Manual) 47, Lymphocytes % (Manual) 45, Monocytes % (Manual) 4, Eosinophils % (Manual) 4H, Basophils % (Manual) 0, Band Neutrophils 0, Platelet Estimate Adequate, Platelet Morphology Normal, Red Blood Cell Morphology Normal, Sodium Level 139, Potassium Level 4.4, Chloride Level 107, Carbon Dioxide Level 28, Blood Urea Nitrogen 21H, Creatinine 3.4H, Estimat Glomerular Filtration Rate 21.1, Glucose Level 84, Calcium Level 8.9 Height (Feet): 5 Height (Inches): 7.00 Weight (Pounds): 141 Misa Boateng MD Mar 01, 2020 16:17
--- NOTE | 2020-03-01 16:32 | NUR ---
CASE MANAGEMENT:REVIEW SI;LEFT LEG OSTEOMYELITIS. 96.8 53 16 130/73 96% ON RA BUN 21 CR 3.4 IS;ROCEPHIN IV Q24 ZYVOX PO Q12 PROTONIX PO QD MOBIC PO QD HEPARIN SUBQ Q8 Q8 ATENOLOL PO QD ZESTRIL PO QD MED SURG STATUS DCP;FROM HOME PLAN; HOME WITH HOME HEALTH WHEN STABLE
--- NOTE | 2020-03-01 16:34 | NUR ---
*-DISCHARGE PLANNED*-* PATIENT HAS BEEN ACCEPTED WITH: [facility] [place] P: [phone] S/W NAJMA WILL SERVICE PATIENT UPON DISCHARGE.
--- NOTE | 2020-03-01 17:43 | Surgery Progress Note ---
Surgery Progress Note Subjective Symptoms: improved, tolerating diet, passing flatus, BM, pain decreased Objective Last 24 Hour Vital Signs Date Time Temp Pulse Resp B/P (MAP) Pulse Ox O2 Delivery O2 Flow Rate FiO2 03/01/20 16:00 97.7 60 18 109/62 (78) 96 03/01/20 12:00 97.5 61 18 120/57 (78) 99 03/01/20 09:00 Room Air 03/01/20 08:41 130/73 03/01/20 08:41 57 130/73 03/01/20 08:00 96.8 57 16 130/73 (92) 99 03/01/20 04:00 97.2 53 16 125/58 (80) 98 03/01/20 00:00 97.9 57 16 123/63 (83) 99 02/29/20 21:00 Room Air 02/29/20 20:00 98.1 54 16 115/63 (80) 98 I&O Intake and Output 02/29/20 03/01/20 19:00 07:00 Intake Total 1200 ml 200 ml Output Total 800 ml 200 ml Balance 400 ml 0 ml Intake Oral 1200 ml 200 ml Output Urine Total 800 ml 200 ml # Voids 2 Dressing: saturated Wound: clean Cardiovascular: RSR Respiratory: clear Abdomen: soft, non-tender, present bowel sounds Extremities: edema, no tenderness, no cyanosis Laboratory Tests Test 03/01/20 07:15 White Blood Count 3.3 K/UL (4.8-10.8) L Red Blood Count 4.18 M/UL (4.70-6.10) L Hemoglobin 12.6 G/DL (14.2-18.0) L Hematocrit 39.4 % (42.0-52.0) L Mean Corpuscular Volume 94 FL (80-99) Mean Corpuscular Hemoglobin 30.1 PG (27.0-31.0) Mean Corpuscular Hemoglobin Concent 31.9 G/DL (32.0-36.0) L Red Cell Distribution Width 14.8 % (11.6-14.8) Platelet Count 159 K/UL (150-450) Mean Platelet Volume 7.1 FL (6.5-10.1) Neutrophils (%) (Auto) % (45.0-75.0) Lymphocytes (%) (Auto) % (20.0-45.0) Monocytes (%) (Auto) % (1.0-10.0) Eosinophils (%) (Auto) % (0.0-3.0) Basophils (%) (Auto) % (0.0-2.0) Differential Total Cells Counted 100 Neutrophils % (Manual) 47 % (45-75) Lymphocytes % (Manual) 45 % (20-45) Monocytes % (Manual) 4 % (1-10) Eosinophils % (Manual) 4 % (0-3) H Basophils % (Manual) 0 % (0-2) Band Neutrophils 0 % (0-8) Platelet Estimate Adequate Platelet Morphology Normal Red Blood Cell Morphology Normal Sodium Level 139 MMOL/L (136-145) Potassium Level 4.4 MMOL/L (3.5-5.1) Chloride Level 107 MMOL/L (98-107) Carbon Dioxide Level 28 MMOL/L (21-32) Blood Urea Nitrogen 21 mg/dL (7-18) H Creatinine 3.4 MG/DL (0.55-1.30) H Estimat Glomerular Filtration Rate 21.1 mL/min (>60) Glucose Level 84 MG/DL (74-106) Calcium Level 8.9 MG/DL (8.5-10.1) Plan Problems: (1) Open wound (2) Wound infection Assessment & Plan: Patient presented on admission with a wound to his anterior Left tibia. He stated he has had wound for almost years but is not aware of how he developed wound. use to have injury to both legs for year from work but most healed. left mid shaft tibial stage 4 Full thickness wound that is malodorous .Base of wound is necrotic down to bone which has moist eschar necrotic layer. Small amt brown exudate. Darker skin tone without elevation in skin temp,fluctuance or induration noted. Dry flaky skin noted to LLE. states wound use to be much large and has contracted to this small necrotic wound now. approximately 4cm x 3cm x 1cm down to bone. chronic dry. surgical prolene suture noted as recent intervention must have been done ou tpatient elsewhere L foot warm to touch. Pt denied fever, or pain at site of wound. LLE washed with soap and water and moisturized. Wash left leg wound daily with NS apply dakins /peroxide gauze to wound bed, abd and wrap daily abx as per ID will follow with recs Large anteromedial soft tissue ulcer, with evidence of erosion through the cortex of the subjacent bone into the medulla. This definitely indicates chronic osteomyelitis. It is uncertain to what extent ongoing active acute osteomyelitis is still present. Note that similar findings are reported on prior MRI MRI may be useful for better characterization. Extensive and diffuse edema of the subcutaneous fat, with likely involvement of the deeper compartments as well. This may indicate edema due to hemodynamic derangements, or could be due to cellulitis. Correlate with clinical findings (3) JESENIA (acute kidney injury) (4) Hypertension (5) BPH (benign prostatic hyperplasia) (6) PAD (peripheral artery disease) (7) HLD (hyperlipidemia) (8) Anemia (9) Syncope (10) GI bleed (11) Episode of generalized weakness (12) Encounter for medication refill (13) Encounter for medication refill Dirk Torrez Mar 01, 2020 17:43
--- NOTE | 2020-03-01 19:19 | NUR ---
NURSE HAND-OFF: Important Events on Shift:[change of attending physician from Dr. Negro to Dr. Nichols, IV ATBs, safet and comfort] Patient Status: [stable] Diet: [renal mechanical soft] Pending Orders: [] Pending Results/Labs:[] Pending MD notification:[] Latest Vital Signs: Temperature 97.7 , Pulse 60 , B/P 109 /62 , Respiratory Rate 18 , O2 SAT 96 , Room Air, O2 Flow Rate . Vital Sign Comment: [] Latest Cleary Fall Score: 35 Fall Risk: Medium Risk Safety Measures: Call light Within Reach, Bed Alarm Zone 1, Side Rails Side Rails x2, Bed position Low and Locked. Fall Precautions: Patient Fall Education Report given to [ELAINA Black].
[2020-03-01 20:00] VITALS: BP 119/61
--- NOTE | 2020-03-01 20:00 | NUR ---
NURSE NOTES: Patient received in bed, awake, and alert. No signs of acute distress. Awaiting for dialysis. Will continue to monitor.
--- NOTE | 2020-03-01 23:00 | NUR ---
NURSE NOTES: Patient completed dialysis and tolerated well. 2.5L output.
--- NOTE | 2020-03-01 23:26 | NUR ---
NURSE NOTES: Offered to do dressing change on left leg. Patient refused at this time. Asked if I could do it in the morning, patient stated, "Do it after breakfast." Will endorse to next shift. Addendum: 03/02/20 at 0647 by SVEN DANIEL RN RN Offered to do dressing change again, patient prefers to sleep more and do it later. Will endorse.
[2020-03-02] VITALS (7 sets, daily range): BP systolic 108–137; BP diastolic 58–76
[2020-03-02] MEDS: Heparin 5000 units/ml inj SUBQ SCH ×3 (05:36→21:03)
--- NOTE | 2020-03-02 06:54 | NUR ---
NURSE HAND-OFF: Important Events on Shift:[had HD 2.5L out, refused dressing change during the night; otherwise, stable] Patient Status: [sleeping] Diet: [Cardiac Mech chopped] Pending Orders: [for Arterial duplex] Pending Results/Labs:[] Pending MD notification:[] Latest Vital Signs: Temperature 97.9 , Pulse 55 , B/P 122 /65 , Respiratory Rate 17 , O2 SAT 98 , Room Air, O2 Flow Rate . Vital Sign Comment: [stable] Latest Cleary Fall Score: 35 Fall Risk: Medium Risk Safety Measures: Call light Within Reach, Bed Alarm Zone 1, Side Rails Side Rails x2, Bed position Low and Locked. Fall Precautions: Patient Fall Education
--- NOTE | 2020-03-02 07:12 | NUR ---
NURSE NOTES: Report received from ELAINA Black. Patient in bed, awake, alert and oriented x 3-4, verbal and able to make needs known. No SOB, bed in lowest position with breaks engaged and alarm on, denies any pain at this time, wound dressing on left lower leg in place, IV line intact on left hand, on room air, will continue to monitor and proceed with plan of care, call light within reach
--- NOTE | 2020-03-02 07:20 | NUR ---
HAND-OFF: Report given to Yeny DELANEY.
--- NOTE | 2020-03-02 08:02 | NUR ---
CASE MANAGEMENT: REVIEW SI: ESRD on HD . LEFT MID SHAFT TIBIAL STAGE 4 . NECROTIC DOWN TO BONE . MAGGOTS NOTED T 97.5 HR 59 RR 16 BP 115/63 SAT 98% ROOM AIR WBC 3.3 H/H 12.6/39.4 BUN 21 CR 3.4 IS: CEFTRIAXONE IV Q24HR ZYVOX PO Q12HR HEPARIN SUBQ Q8HR WASH LEFT LEG WOUND DAILY ID RECOMMENDS CARE HOME IV ANTIBIOTICS MED/SURG STATUS DCP: PATIENT IS FROM HOME. PLAN TO DC HOME WITH ZEINAB
[2020-03-02] MEDS: Docusate 100mg cap ORAL SCH ×2 (09:00→17:08)
[2020-03-02] MEDS: Hydrogen Peroxide 473ml Bottle TOPIC SCH (09:00)
[2020-03-02] MEDS: Atenolol 25mg tab ORAL SCH (09:00)
[2020-03-02] MEDS: Tamsulosin 0.4mg cap ORAL SCH (09:00)
[2020-03-02] MEDS: Lisinopril 10mg tab ORAL SCH (09:00)
--- NOTE | 2020-03-02 11:01 | NUR ---
NURSE NOTES: (LLE) Wound care/dressing change done at 1100, pt tolerated well. Left lower leg dressings clean, dry and intact. Will continue to monitor.
[2020-03-02] MEDS: cefTRIAXone 1 GM in D5W 55 ML IVPB SCH (11:13)
--- NOTE | 2020-03-02 12:12 | NUR ---
RD ASSESSMENT & RECOMMENDATIONS SEE CARE ACTIVITY FOR COMPLETE ASSESSMENT DAILY ESTIMATED NEEDS: Needs based on ESRD, HD, Wound healing 64kg 30-35 kcals/kg 9327-2424 total kcals 1.25-1.8 g protein/kg 80-115 g total protein 25-30 mL/kg 1814-7740 total fluid mLs NUTRITION DIAGNOSIS: * Increased kcal/prot intake needs R/T wound healing as evidenced by admitted w/ stage 4 full thickness wound @ left mid shaft tibia. CURRENT DIET:CARDIAC PO DIET RECOMMENDATIONS: RENAL DIET / texture as tolerated ADDITIONAL RECOMMENDATIONS: * Standing wt as able for accurate CBW * Wound healing: Vit C 500mg BID, ZnSO4 220mg QD x 10 days Deniz 1pkt BID added to tray Nephrovite 1 tab qdaily * Add High pro snacks BID in b/w meals Nepro 1 tetra qdaily
--- NOTE | 2020-03-02 14:41 | Diagnostic Imaging Report ---
Indication: Left lower extremity wound Technique: Grayscale and duplex images of the bilateral lower extremity arteries Comparison: none Findings: The right common femoral, profunda femoral, and proximal superficial femoral artery demonstrate triphasic waveforms with sharp systolic peaks. Triphasic waveforms are demonstrated in the common femoral, profunda femoral, and proximal superficial femoral arteries. The distal superficial femoral and popliteal artery demonstrate monophasic waveforms with slower upstroke and dampened peaks. Similar waveforms are seen involving the peroneal, posterior tibial, anterior tibial arteries. Further dampening of waveforms is seen in the dorsalis pedis artery. Triphasic waveforms with sharp systolic peaks are seen in the left common femoral, profunda femoral, and superficial femoral arteries. Triphasic waveforms are also seen in the left popliteal artery. The dorsalis pedis artery and anterior tibial artery demonstrate borderline monophasic waveform is very slightly dampened systolic peaks. The posterior tibial and peroneal arteries cannot be interrogated due to the presence of a wound bandage Impression: Evidence of significant stenosis of the right distal superficial femoral artery. Additional tibial vessel stenoses also possible No evidence of significant suprageniculate stenosis on the left. There is evidence of proximal disease within the anterior tibial artery. Note that the peroneal and posterior tibial arteries could not be interrogated on the left
--- NOTE | 2020-03-02 15:53 | Nephrology Progress Note ---
Assessment/Plan Plan Chr. LLE Osteo - IV Abx Per ID. See HP documents - to be faxed. s/p Skin grafting LLE. ESRD HD MWF HTN CVD -under control NEEDS SNF again. Subjective Neurologic/Psychiatric: Reports: anxiety Subjective No new c/o Objective Objective Last 24 Hour Vital Signs Date Time Temp Pulse Resp B/P (MAP) Pulse Ox O2 Delivery O2 Flow Rate FiO2 03/02/20 12:00 98.3 58 16 114/58 (76) 99 03/02/20 09:00 Room Air 03/02/20 09:00 110/60 03/02/20 09:00 60 110/60 03/02/20 08:00 97.2 60 16 110/60 (77) 98 03/02/20 07:00 60 18 98 Room Air 21 03/02/20 04:09 97.9 55 17 122/65 (84) 98 03/02/20 00:00 97.5 59 16 115/63 (80) 98 03/01/20 21:00 Room Air 03/01/20 20:03 63 18 98 Room Air 21 03/01/20 20:00 97.7 57 16 119/61 (80) 98 03/01/20 16:00 97.7 60 18 109/62 (78) 96 Intake and Output 03/01/20 03/02/20 19:00 07:00 Intake Total 380 ml 480 ml Output Total 300 ml 5000 ml Balance 80 ml -4520 ml Intake Oral 380 ml 480 ml Output Urine Total 300 ml Hemodialysis UF 5000 ml # Voids 2 3 Height (Feet): 5 Height (Inches): 7.00 Weight (Pounds): 141 Objective CV RR Lungs CTA Abd SNT. BS + E No CCE. L Leg Dressed. iMsa Boateng MD Mar 02, 2020 15:53
--- NOTE | 2020-03-02 16:02 | Surgery Progress Note ---
Surgery Progress Note Subjective Symptoms: improved, pain absent, tolerating diet, passing flatus, BM Objective Last 24 Hour Vital Signs Date Time Temp Pulse Resp B/P (MAP) Pulse Ox O2 Delivery O2 Flow Rate FiO2 03/02/20 12:00 98.3 58 16 114/58 (76) 99 03/02/20 09:00 Room Air 03/02/20 09:00 110/60 03/02/20 09:00 60 110/60 03/02/20 08:00 97.2 60 16 110/60 (77) 98 03/02/20 07:00 60 18 98 Room Air 21 03/02/20 04:09 97.9 55 17 122/65 (84) 98 03/02/20 00:00 97.5 59 16 115/63 (80) 98 03/01/20 21:00 Room Air 03/01/20 20:03 63 18 98 Room Air 21 03/01/20 20:00 97.7 57 16 119/61 (80) 98 I&O Intake and Output 03/01/20 03/02/20 19:00 07:00 Intake Total 380 ml 480 ml Output Total 300 ml 5000 ml Balance 80 ml -4520 ml Intake Oral 380 ml 480 ml Output Urine Total 300 ml Hemodialysis UF 5000 ml # Voids 2 3 Dressing: saturated Wound: clean Cardiovascular: RSR Respiratory: clear Abdomen: soft, non-tender, present bowel sounds Extremities: edema, no tenderness, no cyanosis, other - iproved Plan Problems: (1) Open wound (2) Wound infection Assessment & Plan: Patient presented on admission with a wound to his anterior Left tibia. He stated he has had wound for almost years but is not aware of how he developed wound. use to have injury to both legs for year from work but most healed. left mid shaft tibial stage 4 Full thickness wound that is malodorous .Base of wound is necrotic down to bone which has moist eschar necrotic layer. Small amt brown exudate. Darker skin tone without elevation in skin temp,fluctuance or induration noted. Dry flaky skin noted to LLE. states wound use to be much large and has contracted to this small necrotic wound now. approximately 4cm x 3cm x 1cm down to bone. chronic dry. surgical prolene suture noted as recent intervention must have been done outpatient elsewhere L foot warm to touch. Pt denied fever, or pain at site of wound. LLE washed with soap and water and moisturized. Wash left leg wound daily with NS apply dakins /peroxide gauze to wound bed, abd and wrap daily abx as per ID will follow with recs Large anteromedial soft tissue ulcer, with evidence of erosion through the cortex of the subjacent bone into the medulla. This definitely indicates chronic osteomyelitis. It is uncertain to what extent ongoing active acute osteomyelitis is still present. Note that similar findings are reported on prior MRI MRI may be useful for better characterization. Extensive and diffuse edema of the subcutaneous fat, with likely involvement of the deeper compartments as well. This may indicate edema due to hemodynamic derangements, or could be due to cellulitis. Correlate with clinical findings (3) JESENIA (acute kidney injury) (4) Hypertension (5) BPH (benign prostatic hyperplasia) (6) PAD (peripheral artery disease) (7) HLD (hyperlipidemia) (8) Anemia (9) Syncope (10) GI bleed (11) Episode of generalized weakness (12) Encounter for medication refill (13) Encounter for medication refill (14) End-stage renal disease (15) Hemodialysis patient (16) Osteomyelitis Assessment & Plan: cont abx DAILY ESTIMATED NEEDS: Needs based on ESRD, HD, Wound healing 64kg 30-35 kcals/kg 6354-5088 total kcals 1.25-1.8 g protein/kg 80-115 g total protein 25-30 mL/kg 6333-3680 total fluid mLs NUTRITION DIAGNOSIS: * Increased kcal/prot intake needs R/T wound healing as evidenced by admitted w/ stage 4 full thickness wound @ left mid shaft tibia. CURRENT DIET:CARDIAC PO DIET RECOMMENDATIONS: RENAL DIET / texture as tolerated ADDITIONAL RECOMMENDATIONS: * Standing wt as able for accurate CBW * Wound healing: Vit C 500mg BID, ZnSO4 220mg QD x 10 days Deniz 1pkt BID added to tray Nephrovite 1 tab qdaily * Add High pro snacks BID in b/w meals Nepro 1 tetra qdaily Dirk Torrez Mar 02, 2020 16:02
--- NOTE | 2020-03-02 16:58 | NUR ---
*-*DISCHARGE PLANNING*-* PATIENT HAS BEEN REFERRED TO: [facility] P: [phone] S/W HENRY, WILL CALL BACK TOMORROW 03/02/2020 AND FOLLOW UP.
--- NOTE | 2020-03-02 19:02 | NUR ---
NURSE HAND-OFF: Important Events on Shift:[wound care rendered, BM x 1, new renal diet] Patient Status: [stable] Diet: [renal diet] Pending Orders: [] Pending Results/Labs:[] Pending MD notification:[] Latest Vital Signs: Temperature 97.5 , Pulse 58 , B/P 108 /63 , Respiratory Rate 16 , O2 SAT 98 , Room Air, O2 Flow Rate . Vital Sign Comment: [] Latest Cleary Fall Score: 35 Fall Risk: Medium Risk Safety Measures: Call light Within Reach, Bed Alarm Zone 1, Side Rails Side Rails x2, Bed position Low and Locked. Fall Precautions: Patient Fall Education Report given to [ELAINA Black].
--- NOTE | 2020-03-02 20:00 | NUR ---
NURSE NOTES: Patient received in bed, awake and alert. Denies pain or discomfort at this time. left leg wound dressing c/d/i, done by AM shift. Will continue with plan of care.
[2020-03-03 04:00] VITALS: BP 124/50
[2020-03-03] MEDS: Heparin 5000 units/ml inj SUBQ SCH ×3 (05:08→21:00)
[2020-03-03] MEDS ORDERED: Heparin Sod 1000 units/ml 10ml IV PRN (06:00)
[2020-03-03 06:05] LABS: BASOPHILS % (AUTO) 1.4 % (0.0-2.0); EOSINOPHILS % (AUTO) 3.9 % (0.0-3.0); HEMATOCRIT 39.4 % (42.0-52.0); HEMOGLOBIN 12.6 G/DL (14.2-18.0); LYMPHOCYTES % (AUTO) 46.5 % (20.0-45.0); MEAN CORPUSCULAR VOLUME 93 FL (80-99); MONOCYTES % (AUTO) 8.6 % (1.0-10.0); NEUTROPHILS % (AUTO) 39.5 % (45.0-75.0); PLATELET COUNT 173 K/UL (150-450); RED BLOOD COUNT 4.23 M/UL (4.70-6.10); RED CELL DISTRIBUTION WIDTH 14.5 % (11.6-14.8); WHITE BLOOD COUNT 3.8 K/UL (4.8-10.8)
[2020-03-03 06:17] LABS: BLOOD UREA NITROGEN 25 mg/dL (7-18); CALCIUM 8.9 MG/DL (8.5-10.1); CARBON DIOXIDE 30 MMOL/L (21-32); CHLORIDE 102 MMOL/L (98-107); CREATININE 3.8 MG/DL (0.55-1.30); PHOSPHORUS 3.6 MG/DL (2.5-4.9); POTASSIUM 4.7 MMOL/L (3.5-5.1); SODIUM 135 MMOL/L (136-145)
--- NOTE | 2020-03-03 07:30 | NUR ---
NURSE HAND-OFF: Important Events on Shift:[stable; for HD today] Patient Status: [stable, eating] Diet: [renal] Pending Orders: [] Pending Results/Labs:[] Pending MD notification:[] Latest Vital Signs: Temperature 97.7 , Pulse 54 , B/P 124 /50 , Respiratory Rate 16 , O2 SAT 96 , Room Air, O2 Flow Rate . Vital Sign Comment: [] Latest Cleary Fall Score: 35 Fall Risk: Medium Risk Safety Measures: Call light Within Reach, Bed Alarm Zone 1, Side Rails Side Rails x2, Bed position Low and Locked. Fall Precautions: Patient Fall Education Report given to [Lucius Ortega RN].
--- NOTE | 2020-03-03 07:48 | NUR ---
NURSE NOTES: Received report from ELAINA Black. Patient in bed, awake, alert and oriented x 3-4, verbal and able to make needs known. Patient scheduled for dialysis today. RN contacted Dialysis nurseEllis and confirmed schedule, Per dialysis nurse hold BP medications. No SOB noted at this time, bed in lowest position with breaks engaged and alarm on, denies any pain at this time, wound dressing on left lower leg in place, IV line intact on left hand, on room air, will continue to monitor and proceed with plan of care, call light within reach
[2020-03-03 08:00] VITALS: BP 118/66
[2020-03-03] MEDS: Docusate 100mg cap ORAL SCH ×2 (08:53→17:41)
[2020-03-03] MEDS: Atenolol 25mg tab ORAL SCH (08:54)
[2020-03-03] MEDS: Tamsulosin 0.4mg cap ORAL SCH (08:54)
[2020-03-03] MEDS: Lisinopril 10mg tab ORAL SCH (08:54)
[2020-03-03] MEDS: Hydrogen Peroxide 473ml Bottle TOPIC SCH (08:55)
--- NOTE | 2020-03-03 10:47 | Surgery Progress Note ---
Surgery Progress Note Subjective Additional Comments afebrile, HD stable improving tolerating diet Objective Last 24 Hour Vital Signs Date Time Temp Pulse Resp B/P (MAP) Pulse Ox O2 Delivery O2 Flow Rate FiO2 03/03/20 09:00 Room Air 03/03/20 08:54 118/66 03/03/20 08:54 62 118/66 03/03/20 08:00 97.5 62 18 118/66 (83) 100 03/03/20 04:00 97.7 54 16 124/50 (74) 96 03/02/20 23:49 97.0 58 18 137/76 (96) 97 03/02/20 21:00 Room Air 03/02/20 20:00 97.2 63 18 132/71 (91) 95 03/02/20 19:45 59 18 97 Room Air 21 03/02/20 16:00 97.5 58 16 108/63 (78) 98 03/02/20 12:00 98.3 58 16 114/58 (76) 99 I&O Intake and Output 03/02/20 03/03/20 19:00 07:00 Intake Total 300 ml 360 ml Output Total 300 ml Balance 0 ml 360 ml Intake Oral 300 ml Other 360 ml Output Urine Total 300 ml # Voids 2 2 # Bowel Movements 1 Cardiovascular: RSR Respiratory: decreased breath sounds Abdomen: soft, non-tender, present bowel sounds Extremities: no tenderness, no cyanosis Laboratory Tests Test 03/03/20 05:49 White Blood Count 3.8 K/UL (4.8-10.8) L Red Blood Count 4.23 M/UL (4.70-6.10) L Hemoglobin 12.6 G/DL (14.2-18.0) L Hematocrit 39.4 % (42.0-52.0) L Mean Corpuscular Volume 93 FL (80-99) Mean Corpuscular Hemoglobin 29.8 PG (27.0-31.0) Mean Corpuscular Hemoglobin Concent 31.9 G/DL (32.0-36.0) L Red Cell Distribution Width 14.5 % (11.6-14.8) Platelet Count 173 K/UL (150-450) Mean Platelet Volume 6.6 FL (6.5-10.1) Neutrophils (%) (Auto) 39.5 % (45.0-75.0) L Lymphocytes (%) (Auto) 46.5 % (20.0-45.0) H Monocytes (%) (Auto) 8.6 % (1.0-10.0) Eosinophils (%) (Auto) 3.9 % (0.0-3.0) H Basophils (%) (Auto) 1.4 % (0.0-2.0) Sodium Level 135 MMOL/L (136-145) L Potassium Level 4.7 MMOL/L (3.5-5.1) Chloride Level 102 MMOL/L (98-107) Carbon Dioxide Level 30 MMOL/L (21-32) Blood Urea Nitrogen 25 mg/dL (7-18) H Creatinine 3.8 MG/DL (0.55-1.30) H Estimat Glomerular Filtration Rate 18.5 mL/min (>60) Glucose Level 87 MG/DL (74-106) Calcium Level 8.9 MG/DL (8.5-10.1) Phosphorus Level 3.6 MG/DL (2.5-4.9) Plan Problems: (1) Open wound (2) Wound infection Assessment & Plan: Patient presented on admission with a wound to his anterior Left tibia. He stated he has had wound for almost years but is not aware of how he developed wound. use to have injury to both legs for year from work but most healed. left mid shaft tibial stage 4 Full thickness wound that is malodorous .Base of wound is necrotic down to bone which has moist eschar necrotic layer. Small amt brown exudate. Darker skin tone without elevation in skin temp,fluctuance or induration noted. Dry flaky skin noted to LLE. states wound use to be much large and has contracted to this small necrotic wound now. approximately 4cm x 3cm x 1cm down to bone. chronic dry. surgical prolene suture noted as recent intervention must have been done outpatient elsewhere L foot warm to touch. Pt denied fever, or pain at site of wound. LLE washed with soap and water and moisturized. Wash left leg wound daily with NS apply dakins /peroxide gauze to wound bed, abd and wrap daily abx as per ID will follow with recs Large anteromedial soft tissue ulcer, with evidence of erosion through the cortex of the subjacent bone into the medulla. This definitely indicates chronic osteomyelitis. It is uncertain to what extent ongoing active acute osteomyelitis is still present. Note that similar findings are reported on prior MRI MRI may be useful for better characterization. Extensive and diffuse edema of the subcutaneous fat, with likely involvement of the deeper compartments as well. This may indicate edema due to hemodynamic derangements, or could be due to cellulitis. Correlate with clinical findings (3) JESENIA (acute kidney injury) (4) Hypertension (5) BPH (benign prostatic hyperplasia) (6) PAD (peripheral artery disease) (7) HLD (hyperlipidemia) (8) Anemia (9) Syncope (10) GI bleed (11) Episode of generalized weakness (12) Encounter for medication refill (13) Encounter for medication refill (14) End-stage renal disease (15) Hemodialysis patient (16) Osteomyelitis Assessment & Plan: cont abx DAILY ESTIMATED NEEDS: Needs based on ESRD, HD, Wound healing 64kg 30-35 kcals/kg 5236-6911 total kcals 1.25-1.8 g protein/kg 80-115 g total protein 25-30 mL/kg 2167-7891 total fluid mLs NUTRITION DIAGNOSIS: * Increased kcal/prot intake needs R/T wound healing as evidenced by admitted w/ stage 4 full thickness wound @ left mid shaft tibia. CURRENT DIET:CARDIAC PO DIET RECOMMENDATIONS: RENAL DIET / texture as tolerated ADDITIONAL RECOMMENDATIONS: * Standing wt as able for accurate CBW * Wound healing: Vit C 500mg BID, ZnSO4 220mg QD x 10 days Deniz 1pkt BID added to tray Nephrovite 1 tab qdaily * Add High pro snacks BID in b/w meals Nepro 1 tetra qdaily Dirk Torrez Mar 03, 2020 10:47
--- NOTE | 2020-03-03 11:23 | Infectious Diseases Prog Note ---
Assessment/Plan Assessment/Plan antibiotics : cefepime A 1. left leg osteomyelitis with providencia, VRE 2. hypertension 3. renal failure 4. s/p maggots 5. s/p polio P 1. continue linezolid,ceftriaxone 39 more days 2. will follow up cultures Subjective Constitutional: Denies: fever, chills Respiratory: Denies: shortness of breath, dry cough Gastrointestinal/Abdominal: Denies: nausea, vomiting, diarrhea Musculoskeletal: Denies: pain Allergies: Coded Allergies: No Known Allergies (Unverified , 08/05/14) Objective Last 24 Hour Vital Signs Date Time Temp Pulse Resp B/P (MAP) Pulse Ox O2 Delivery O2 Flow Rate FiO2 03/03/20 09:00 Room Air 03/03/20 08:54 118/66 03/03/20 08:54 62 118/66 03/03/20 08:00 97.5 62 18 118/66 (83) 100 03/03/20 04:00 97.7 54 16 124/50 (74) 96 03/02/20 23:49 97.0 58 18 137/76 (96) 97 03/02/20 21:00 Room Air 03/02/20 20:00 97.2 63 18 132/71 (91) 95 03/02/20 19:45 59 18 97 Room Air 21 03/02/20 16:00 97.5 58 16 108/63 (78) 98 03/02/20 12:00 98.3 58 16 114/58 (76) 99 Height (Feet): 5 Height (Inches): 7.00 Weight (Pounds): 141 Respiratory/Chest: lungs clear Cardiovascular: normal rate, regular rhythm, no gallop/murmur Abdomen: soft, non tender Extremities: no edema, other - left leg in dressings Laboratory Tests Test 03/03/20 05:49 White Blood Count 3.8 K/UL (4.8-10.8) L Red Blood Count 4.23 M/UL (4.70-6.10) L Hemoglobin 12.6 G/DL (14.2-18.0) L Hematocrit 39.4 % (42.0-52.0) L Mean Corpuscular Volume 93 FL (80-99) Mean Corpuscular Hemoglobin 29.8 PG (27.0-31.0) Mean Corpuscular Hemoglobin Concent 31.9 G/DL (32.0-36.0) L Red Cell Distribution Width 14.5 % (11.6-14.8) Platelet Count 173 K/UL (150-450) Mean Platelet Volume 6.6 FL (6.5-10.1) Neutrophils (%) (Auto) 39.5 % (45.0-75.0) L Lymphocytes (%) (Auto) 46.5 % (20.0-45.0) H Monocytes (%) (Auto) 8.6 % (1.0-10.0) Eosinophils (%) (Auto) 3.9 % (0.0-3.0) H Basophils (%) (Auto) 1.4 % (0.0-2.0) Sodium Level 135 MMOL/L (136-145) L Potassium Level 4.7 MMOL/L (3.5-5.1) Chloride Level 102 MMOL/L (98-107) Carbon Dioxide Level 30 MMOL/L (21-32) Blood Urea Nitrogen 25 mg/dL (7-18) H Creatinine 3.8 MG/DL (0.55-1.30) H Estimat Glomerular Filtration Rate 18.5 mL/min (>60) Glucose Level 87 MG/DL (74-106) Calcium Level 8.9 MG/DL (8.5-10.1) Phosphorus Level 3.6 MG/DL (2.5-4.9) Current Medications Medications (Trade) Dose Ordered Sig/Yesenia Route PRN Reason Start Time Stop Time Status Last Admin Dose Admin Acetaminophen (Tylenol) 650 mg Q6H PRN ORAL For Pain 02/25/20 23:30 03/26/20 23:29 Atenolol (Tenormin) 25 mg DAILY ORAL 02/26/20 09:00 03/27/20 08:59 03/02/20 09:00 Atorvastatin Calcium (Lipitor) 10 mg BEDTIME ORAL 02/26/20 21:00 05/26/20 20:59 03/02/20 20:58 Ceftriaxone Sodium 1 gm/ Dextrose 55 ml @ 110 mls/hr Q24H IVPB 03/01/20 12:00 03/08/20 11:59 03/02/20 11:13 Docusate Sodium (Colace) 100 mg BID ORAL 02/26/20 09:00 03/27/20 08:59 03/03/20 08:53 Heparin Sodium (Porcine) (Heparin 5000 units/ml) 5,000 units EVERY 8 HOURS SUBQ 02/26/20 06:00 04/11/20 05:59 03/03/20 05:08 Heparin Sodium (Porcine) (Heparin Sod 1000 units/ml 10ml) 2,000 unit ONCE PRN IV HD 03/03/20 06:00 03/03/20 23:59 Hydrogen Peroxide (Hydrogen Peroxide) 1 applic DAILY TOPIC 02/28/20 20:00 05/28/20 19:59 03/03/20 08:55 Linezolid (Zyvox) 600 mg EVERY 12 HOURS ORAL 03/01/20 11:15 03/06/20 11:14 03/03/20 08:54 Lisinopril (ZestriL) 10 mg DAILY ORAL 02/26/20 09:00 03/27/20 08:59 03/02/20 09:00 Pantoprazole (Protonix) 40 mg DAILY ORAL 03/01/20 09:00 03/31/20 08:59 03/03/20 08:54 Sodium Chloride 1,000 ml @ 500 mls/hr Q2H PRN IVLG sbp<90 during hd 03/03/20 06:00 03/03/20 23:59 Tamsulosin HCl (Flomax) 0.4 mg DAILY ORAL 02/26/20 09:00 03/27/20 08:59 03/03/20 08:54 Matthew Neely MD Mar 03, 2020 11:23
[2020-03-03] MEDS: cefTRIAXone 1 GM in D5W 55 ML IVPB SCH (11:35)
[2020-03-03 11:59] VITALS: BP 131/69
--- NOTE | 2020-03-03 13:22 | NUR ---
DRIVER EXAMINER NOTE S/W ARABELLA AT [facility] WHO REQUESTED BS TAMMYM INFO. PROVIDED CONTACT INFO FOR RAFFI MAXWELL @ [facility] [phone]. NO ANSWER. VM LEFT REQUESTING CALL BACK. WILL FOLLOW UP.
--- NOTE | 2020-03-03 13:24 | Nephrology Progress Note ---
Assessment/Plan Plan Chr. LLE Osteo - IV Abx Per ID. See HP documents - to be faxed. s/p Skin grafting LLE. ESRD HD MWF HTN CVD -under control. See HP documents in paper chart. NEEDS SNF again. Referred. Subjective Subjective No new c/o Objective Objective Last 24 Hour Vital Signs Date Time Temp Pulse Resp B/P (MAP) Pulse Ox O2 Delivery O2 Flow Rate FiO2 03/03/20 11:59 97.2 60 18 131/69 (89) 100 03/03/20 09:00 Room Air 03/03/20 08:54 118/66 03/03/20 08:54 62 118/66 03/03/20 08:00 97.5 62 18 118/66 (83) 100 03/03/20 04:00 97.7 54 16 124/50 (74) 96 03/02/20 23:49 97.0 58 18 137/76 (96) 97 03/02/20 21:00 Room Air 03/02/20 20:00 97.2 63 18 132/71 (91) 95 03/02/20 19:45 59 18 97 Room Air 21 03/02/20 16:00 97.5 58 16 108/63 (78) 98 Intake and Output 03/02/20 03/03/20 19:00 07:00 Intake Total 300 ml 360 ml Output Total 300 ml Balance 0 ml 360 ml Intake Oral 300 ml Other 360 ml Output Urine Total 300 ml # Voids 2 2 # Bowel Movements 1 Laboratory Tests 03/03/20 05:49: White Blood Count 3.8L, Red Blood Count 4.23L, Hemoglobin 12.6L, Hematocrit 39.4L, Mean Corpuscular Volume 93, Mean Corpuscular Hemoglobin 29.8, Mean Corpuscular Hemoglobin Concent 31.9L, Red Cell Distribution Width 14.5, Platelet Count 173, Mean Platelet Volume 6.6, Neutrophils (%) (Auto) 39.5L, Lymphocytes (%) (Auto) 46.5H, Monocytes (%) (Auto) 8.6, Eosinophils (%) (Auto) 3.9H, Basophi ls (%) (Auto) 1.4, Sodium Level 135L, Potassium Level 4.7, Chloride Level 102, Carbon Dioxide Level 30, Blood Urea Nitrogen 25H, Creatinine 3.8H, Estimat Glomerular Filtration Rate 18.5, Glucose Level 87, Calcium Level 8.9, Phosphorus Level 3.6 Height (Feet): 5 Height (Inches): 7.00 Weight (Pounds): 141 Objective CV RR Lungs CTA Abd SNT. BS + E No CCE. L Leg Dressed. Misa Boateng MD Mar 03, 2020 13:24
--- NOTE | 2020-03-03 13:47 | NUR ---
NURSE NOTES: RN made aware that patient is hardstick. RN asked Dr. Todd if we can use right arm for IV insertion, gave permission to RN
--- NOTE | 2020-03-03 15:26 | NUR ---
DISCHARGE PLANNING S/W RAFFI MAXWELL AT [facility] AND INFORMED OF DCP TO [facility]. RAFFI REQUESTED ORDER FOR DC PLANNING TO SNF. ORDER EMAILED TO [email or web address] RAFFI PROVIDED AUTH # [id number] FOR AMBULANCE TRANSPORTATION S/W ARABELLA AT [facility] [phone]. CONFIRMED PATIENT ACCEPTED. SHE HAS SPOKEN WITH RAFFI AT [facility] AND CONFIRMED AUTH IS BEING GENERATED. ARABELLA PROVIDED BED 53-B. SKILLED
[2020-03-03 16:00] VITALS: BP 133/74
--- NOTE | 2020-03-03 16:25 | NUR ---
*-*DISCHARGE PLANNED*-* PATIENT HAS BEEN ACCEPTED AND WILL BE DISCHARGED [facility]: [facility] P: [phone] FOR NURSE TO NURSE REPORT ROOM# 53.B SKILLED [facility] SET FOR 6PM S/W CRISTOPHER [id number]. S/W PATIENTS SISTER, IDANIA LEMON, WHO IS IN AGREEMENT WITH DISCHARGE PLAN.
--- NOTE | 2020-03-03 16:39 | NUR ---
*-*DISCHARGE PLANNED*-* PATIENT HAS BEEN ACCEPTED AND WILL BE DISCHARGED TO: [facility] P: [phone] FOR NURSE TO NURSE REPORT ROOM# 53.B SKILLED [facility] SET FOR 8:30PM S/W CRISTOPHER [id number]. S/W PATIENTS SISTER, IDANIA LEMON, WHO IS IN AGREEMENT WITH DISCHARGE PLAN.
--- NOTE | 2020-03-03 16:59 | NUR ---
NURSE NOTES: RN contacted Dr. Nichols and left a call back number regarding discharge medication needed for discharge. Patient is for discharge @ 2030 after dialysis. RN awaiting call back
--- NOTE | 2020-03-03 17:03 | NUR ---
NURSE NOTES: Dr. Nichols called and said to continue all hospital medication to SNF along with IV medication. RN asked doctor to put discharge medication and Dr. Nichols replied with "Im not at the hospital, i cant do it. Just continue everything he has plus antibiotics". Charge nurse made aware
--- NOTE | 2020-03-03 17:30 | NUR ---
NURSE NOTES: RN has been calling [facility] to give report and no one has answered. Will continue trying
--- NOTE | 2020-03-03 17:35 | NUR ---
NURSE NOTES: Paper Medication recon done due to Dr. Boateng not doing the computerized med recon. List of medication in the packet. Will endorse to the next shift
--- NOTE | 2020-03-03 17:58 | NUR ---
INSURANCE CLINICALS/REVIEW FAXED TO [facility] [phone]
--- NOTE | 2020-03-03 17:58 | NUR ---
NURSE NOTES: RN gave report to ELAINA Hernandez. Patient will be picked up around 2029 with IV medication continuation. Patient will leave with IV site intact. Packet printed and ready to be picked up when ambulance personnel gets here. Medication that was brought with patient is at bedside and in clear plastic bag. RN will endorse to next shift. RN educated patient to not take any of the medication at bedside. patient is AAOX3, able to follow instructions well. RN left call back number in case of any further questions.
--- NOTE | 2020-03-03 19:43 | NUR ---
NURSE HAND-OFF: Important Events on Shift:Discharge @ 2029 Patient Status: stable Diet: renal Pending Orders: n/a Pending Results/Labs:n/a Pending MD notification:n/a Latest Vital Signs: Temperature 97.3 , Pulse 60 , B/P 133 /74 , Respiratory Rate 18 , O2 SAT 97 , Room Air, O2 Flow Rate . Vital Sign Comment: stable Latest Cleary Fall Score: 35 Fall Risk: Medium Risk Safety Measures: Call light Within Reach, Bed Alarm Zone 1, Side Rails Side Rails x2, Bed position Low and Locked. Fall Precautions: Patient Fall Education Report given to ELAINA Blue.
[2020-03-03 20:00] VITALS: BP 137/82
--- NOTE | 2020-03-03 20:00 | NUR ---
NURSE NOTES: Received pt from ELAINA Kan. Pt to be picked up by [facility] to go SNF, Patient will leave with IV site intact. IV flushed and patent. Medication that was brought with patient is at bedside and in clear plastic bag. RN educated patient to not take any of the medication at bedside but will bring it with him upon discharge. patient is AAOX3-4, able to follow instructions well. Pt is sitting upright eating his dinner as it was delayed due to hemodialysis. HD finished with 1.5 L out. Pt is in stable condition, fall light in reach, bed alarm on, bed locked in lowest position with cane and urinal at bedside.
--- NOTE | 2020-03-03 22:00 | NUR ---
NURSE NOTES: Pt discharged to [facility] for transfer, transferred with all belongings and went over them at the bedside. Pt is stable for transfer and VSS. Pt alert and oriented ambulated to the [facility] to leave with [facility], report given to ambulance personnel.
--- NOTE | 2020-03-04 19:01 | Discharge Summary ---
Discharge Summary Discharge Summary _ DATE OF ADMISSION: 02/25/2020 DATE OF DISCHARGE: 03/03/2020 DISCHARGED BY: Dr. Misa Boateng BRIEF HOSPITAL COURSE: The patient is an 84-year-old male with history of polio, end-stage renal disease on hemodialysis, hypertension, chronic left lower extremity wound, presented to ED due to worsening left lower extremity wound. Patient was visited by home nurse and wound was noted to be worse with presence of Mag-Ox. Patient denied any pain or fever. Upon evaluation at ED, vital signs were stable. Blood work did not show any leukocytosis. Hemoglobin hematocrit were stable. Patient was noted to have a wound on the left lower extremity with purulent drainage. He was started on IV antibiotic. He was admitted for evaluation of wound infection. Surgeon was consulted. Patient had a wound on the anterior left tibia. Left tibia has stage IV full-thickness wound. Base of wound is necrotic down to bone. There were maggots noted. He was given local wound care. He was given IV antibiotics. He was given inpatient hemodialysis. ID specialist was consulted. IV vancomycin and Ancef were discontinued. Patient was given cefepime. CT of the left leg showed evidence of erosion. Uncertain to what extent an ongoing active acute osteomyelitis. Wound culture showed growth of Providencia and enterococcus. Antibiotic was changed to lisinopril and ceftriaxone. Patient would need prolonged IV antibiotics. Patient was eventually transferred to a SNF. FINAL DIAGNOSES: Left leg osteomyelitis with providencia, VRE Hypertension End-stage renal failure on hemodialysis DISPOSITION: Patient was discharged to [facility]. I have been assigned to complete a discharge summary on this account, I was not involved with the patient's management.--DERREK Alvarez Jacqueline Robles NP Mar 04, 2020 19:01
--- NOTE | 2020-03-05 13:38 | NUR ---
CASE MANAGEMENT: Faxed clinical info (face sheet /DC summary) to [facility] @ # [phone]/ [phone]. T#[id number].
== END 2020-03-03 22:05 | DRG 344 ==
LOC: EDUNIT# 17:14 → EDBD 17:15 → EMR 17:30 → 4E 18:50 → EDBEDREQ 20:50
PROC: 5A1D70Z Performance of Urinary Filtration, Intermittent, Less than 6 Hours Per Day (ICD-10-PCS; principal; 2020-02-28)
DX: M86.8X6 Other osteomyelitis, lower leg (principal); B96.89 Other specified bacterial agents as the cause of diseases classified elsewhere; I12.9 Hypertensive chronic kidney disease with stage 1 through stage 4 chronic kidney disease, or unspecified chronic kidney disease; N17.9 Acute kidney failure, unspecified; I73.9 Peripheral vascular disease, unspecified; N18.6 End stage renal disease; Z99.2 Dependence on renal dialysis; Z86.12 Personal history of poliomyelitis; Z87.891 Personal history of nicotine dependence; B87.1 Wound myiasis; E78.5 Hyperlipidemia, unspecified; D64.9 Anemia, unspecified; K92.2 Gastrointestinal hemorrhage, unspecified; L97.824 Non-pressure chronic ulcer of other part of left lower leg with necrosis of bone
CPT/HCPCS: 36415; 80048; 80053; 80202; 81001; 84100; 84134; 84630; 85007; 85025; 85610; 85651; 85730; 86140; 86706; 87070; 87081; 87181; 87205; 93925; 94664; 96365; 96367; 99285